=== PATIENT | female | born 1960 | race Caucasian/White ===

== ENCOUNTER 2020-09-10 09:38 | Outpatient (REF) | payer OTHER, SELFPAY ==
[2020-09-10 10:48] LABS: Anion Gap 12 (12-20); Blood Urea Nitrogen 16 mg/dL (9-16); Calcium 9.9 mg/dL (8.4-10.2); Carbon Dioxide 25 mmol/L (22-29); Chloride 111 mmol/L (96-108); Estimated Glomerular Filt Rate 45; Potassium 3.5 mmol/L (3.3-5.1); Sodium 144 mmol/L (135-145)
[2020-09-10 12:10] LABS: Creatinine Urine 296.69 mg/dL; Total Protein Urine Random 59 mg/dL (<12)
== END 2020-09-10 09:39 | disposition home or self-care (01) ==
LOC: HO.LAB 09:38
PROVIDERS: Visit Provider Internal Medicine Hypertension Specialist
DX: I10 Essential (primary) hypertension (principal)
CPT/HCPCS: 36415; 80051; 82310; 82565; 84156; 84520

== ENCOUNTER 2021-08-21 13:45 | Outpatient (REF) | payer OTHER, SELFPAY ==
[2021-08-21 15:15] LABS: Anion Gap 11 (12-20); Blood Urea Nitrogen 28 mg/dL (9-16); Calcium 9.6 mg/dL (8.4-10.2); Carbon Dioxide 18 mmol/L (22-29); Chloride 117 mmol/L (96-108); Estimated Glomerular Filt Rate 27; Glucose Random 79 mg/dL (60-115); Potassium 5.5 mmol/L (3.3-5.1); Sodium 140 mmol/L (135-145)
== END 2021-08-21 13:46 | disposition home or self-care (01) ==
LOC: HO.LAB 13:45
PROVIDERS: Visit Provider Internal Medicine Hypertension Specialist
DX: I10 Essential (primary) hypertension (principal)
CPT/HCPCS: 36415; 80048

== ENCOUNTER 2022-09-28 14:02 | Outpatient (REF) | payer OTHER, SELFPAY ==
[2022-09-28 14:53] LABS: Anion Gap 10 (12-20); Blood Urea Nitrogen 19 mg/dL (9-16); Calcium 10.2 mg/dL (8.4-10.2); Carbon Dioxide 30 mmol/L (22-29); Chloride 108 mmol/L (96-108); Estimated Glomerular Filt Rate 45; Glucose Random 92 mg/dL (60-115); Potassium 3.8 mmol/L (3.3-5.1); Sodium 144 mmol/L (135-145)
== END 2022-09-28 14:03 | disposition home or self-care (01) ==
LOC: HO.LAB 14:02
PROVIDERS: Visit Provider Internal Medicine Hypertension Specialist
DX: N18.31 Chronic kidney disease, stage 3a (principal)
CPT/HCPCS: 36415; 80048

== ENCOUNTER 2023-03-05 11:15 | Emergency (ER) | payer OTHER, SELFPAY ==
[2023-03-05 11:21] VITALS: BP 183/99; PULSE 66; RESP 14; TEMP 37.2; O2SAT 97
--- NOTE | 2023-03-05 11:23 | ED_ITS ---
HPI - Headache General Chief Complaint: General Medical Stated Complaint: MIGRAINE Time Seen by Provider: 03/05/23 11:22 Source: patient Mode of arrival: EMS Limitations: no limitations History of Present Illness HPI Narrative: 62 yo female with PMH of HTN, CKD, CVA with R sided weakness, tingling here with c/o typical migraine on R side starting at 9pm yesterdray with photophobia associated n/v that has worsened through the night she threw up her BP medications this AM. Went to PCP who noted BP tried to give IM toradol with little relief but was worried about BP. She denies fevers or new neurologic issues. MD elicited complaint: migraine Pertinent past history: migraines and hypertension Onset (ago): day(s) (last night 9pm) Onset description: gradually Location: right and temporal Severity: similar to previous episodes Quality & Timing: throbbing and progressively worsening Exacerbating factors: light and noise Relieving factors: nothing Context: other (hx of migraines feels similar, threw up her BP meds this AM) Associated symptoms: nausea, vomiting and photophobia Treatments prior to arrival: other (IM toradol at PCP) Related Data Allergies Allergy/AdvReac Type Severity Reaction Status Date / Time oxycodone [From PERCOCET] Allergy Intermediate RASH Unverified 11/23/19 17:01 codeine [Codeine] Allergy Unknown SHORTNESS Unverified 11/23/19 17:01 OF BREATH morphine [Morphine] AdvReac Unknown CHEST PAIN Unverified 11/23/19 17:01 Percocet Allergy Unknown anxiety Uncoded 12/30/10 00:00 Vicodin Allergy Unknown rash Uncoded 12/30/10 00:00 Review of Systems 2 Review of Systems: Constitutional : No Fever, No Chills, No Fatigue ENT/Mouth : No sore throat, No Rhinorrhea Eyes: No Eye Pain, No Swelling, No Redness Cardiovascular : No Chest Pain, No SOB, No Dyspnea on Exertion Respiratory : No Cough, No Sputum Gastrointestinal : pos Nausea, pos Vomiting, No Diarrhea, No abdominal Pain Genitourinary : No Dysuria, No Urinary Frequency, No Hematuria, Musculoskeletal : No joint pain, No Myalgias, No Joint Swelling Skin : No Skin Lesions, No rash Neuro : No Weakness, No Numbness, No Dizziness, positive Headache Psych : No Anxiety/Panic, No Depression Heme/Lymph: No Bruising, No Bleeding,No Lymphadenopathy Endocrine : No Polyuria, No Polydipsia All other systems reviewed and are negative COUNTS INCLUDE 234 BEDS AT THE [facility] Past Medical History Attestation statement: The following information was validated with the patient. Source: old records reviewed Medical History Acute CVA (cerebrovascular accident) Migraines HTN (hypertension) Social History Social History (Updated 03/05/23 @ 12:19 by Sonia Tesfaye DO) Patient Tobacco Use Status: Never used Tobacco Advance Directives: No Advance Directives Information Provided: No Physical Exam 2 Vital Signs: Vital Signs: Last Vital Signs Temp 98.9 F 03/05/23 11:21 Pulse 66 03/05/23 11:21 Resp 14 03/05/23 11:21 BP 183/99 H 03/05/23 11:21 Pulse Ox 97 03/05/23 11:21 O2 Del Method Room Air 03/05/23 11:21 BMI result Body Mass Index 26.7 Appearance: Alert. Oriented X3. No acute distress. Eyes: Pupils equal, round and reactive to light. ENT: Pharynx normal. Neck: Normal inspection. Neck supple. no meningeal signs CVS: Normal heart rate and rhythm. Pulses normal. Respiratory: No respiratory distress. Breath sounds normal. Abdomen: Soft and nontender. Skin: Skin warm and dry. Normal skin color. Normal skin turgor. Extremities: No lower extremity edema. No calf ttp Neuro: Oriented X 3. No motor deficit. No sensory deficit. I do not appreciate deficits Medications Administered Discontinued Medications Generic Name Dose Route Start Last Admin Trade Name Shandra PRN Reason Stop Dose Admin Amlodipine Besylate 10 mg 03/05/23 11:58 03/05/23 12:42 Amlodipine Besylate 10 Mg Tablet PO 03/05/23 11:59 10 mg ONCE ONE Administration Protocol Diphenhydramine HCl 25 mg 03/05/23 11:58 03/05/23 13:16 Diphenhydramine Hcl 50 Mg/Ml Vial IVPUSH 03/05/23 11:59 25 mg ONCE ONE Administration Hydralazine HCl 100 mg 03/05/23 11:58 03/05/23 12:43 Hydralazine Hcl 50 Mg Tablet PO 03/05/23 11:59 100 mg ONCE ONE Administration Protocol Metoclopramide HCl 10 mg 03/05/23 11:59 03/05/23 13:16 Metoclopramide Hcl 10 Mg/2 Ml Vial IVPUSH 03/05/23 12:00 10 mg ONCE ONE Administration Medical Decision Making Medical Decision Making [facility] Narrative: 62 yo female with PMH of HTN, CKD, CVA with R sided weakness, tingling here with typical migraine not on thinners no neurologic deficits BP is high due to her vomiting up her medications. At this time will provide IV medications, repeat BP, IV medications for headache, if no improvement may image, no fevers or neck pain to suggest ICH Differential Diagnosis Differential Diagnoses: The differential diagnosis associated with the presentation includes HTN, migraine Admission/Observation Consideration of admission/observation: Escalation of care including admission/observation considered Bp down feels much better wants to go home and sleep Lab Data [facility] Lab Attestation statement: I reviewed the patient's lab results. 03/05/23 12:29 03/05/23 12:29 Labs: Lab Results 03/05/23 Range/Units 12:29 WBC 5.8 (4.8-10.8) X10*3/uL RBC 4.14 L (4.20-5.50) X10*6/uL Hgb 12.3 (12.0-16.0) g/dl Hct 37.6 (37.0-47.0) % MCV 90.8 (80.0-98.0) fL MCH 29.7 (27.0-33.0) pg MCHC 32.7 (31.0-35.0) g/dl RDW 12.7 (11.0-16.0) % Plt Count 289 (160-400) X10*3/uL MPV 11.5 (9.4-12.3) fL Immature Gran % (Auto) 0.7 H (0.0-0.4) % Neut % (Auto) 67.3 (45-73) % Lymph % (Auto) 20.6 (20-40) % [place] % (Auto) 8.7 (2-11) % Eos % (Auto) 2.2 (0-4) % Baso % (Auto) 0.5 (0-2) % Lymph # (Auto) 1.2 (1.2-4.9) X10*3/uL [place] # (Auto) 0.5 (0.1-1.2) X10*3/uL Eos # (Auto) 0.1 (0.0-0.4) X10*3/uL Baso # (Auto) 0.0 (0.0-0.2) X10*3/uL Abs Immat Gran (auto) 0.04 H (0.00-0.03) X10*3/uL Absolute Neuts (auto) 3.9 (2.0-8.3) x10*3/uL Absolute Nucleated RBC 0.000 (0.0-0.012) X10*3/uL Nucleated RBC % (auto) 0.0 (0.0-0.2) /100WBC Sodium 139 (135-145) mmol/L Potassium 3.6 (3.3-5.1) mmol/L Chloride 104 (96-108) mmol/L Carbon Dioxide 23 (22-29) mmol/L Anion Gap 16 (12-20) BUN 16 (9-16) mg/dL Creatinine 1.23 (0.5-1.4) mg/dL Estim Creat Clear Calc 43.4 Estimated GFR 45 Random Glucose 106 (60-115) mg/dL Calcium 9.8 (8.4-10.2) mg/dL External Record Review External record reviewed: Office record Chronic Conditions Patient?s care impacted by: Hypertension Discharge Plan Discharge Clinical Impression: Migraine Qualifiers: Migraine type: unspecified Status migrainosus presence: without status migrainosus Intractability: not intractable Qualified Code(s): G43.909 - Migraine, unspecified, not intractable, without status migrainosus Patient Disposition: Home, Self-Care Instructions: Migraine Headache (ED) Additional Instructions: labs normal. BP improved - we gave you hydralazine and amlodipine in the ER today. return for fevers, vomiting, confusion, worsening pain or any other concerns. follow up with your doctor as needed.
[2023-03-05 11:26] VITALS: BP 160/100; PULSE 72; O2SAT 98; BMI 26.7
[2023-03-05 12:33] LABS: MANUAL DIFF FLAG NO
[2023-03-05 12:34] LABS: Basophils Percent Auto 0.5 % (0-2); Eosinophils Absolute Auto 0.1 X10*3/uL (0.0-0.4); Eosinophils Percent Auto 2.2 % (0-4); Hematocrit 37.6 % (37.0-47.0); Hemoglobin 12.3 g/dl (12.0-16.0); Imm Gran Abs Auto 0.04 X10*3/uL (0.00-0.03); Imm Gran Pct Auto 0.7 % (0.0-0.4); Lymphocytes Absolute Auto 1.2 X10*3/uL (1.2-4.9); Lymphocytes Percent Auto 20.6 % (20-40); Mean Corpuscular HGB Conc 32.7 g/dl (31.0-35.0); Mean Corpuscular Hemoglobin 29.7 pg (27.0-33.0); Mean Corpuscular Volume 90.8 fL (80.0-98.0); Mean Platelet Volume 11.5 fL (9.4-12.3); Monocytes Absolute Auto 0.5 X10*3/uL (0.1-1.2); Monocytes Percent Auto 8.7 % (2-11); Neutrophils Absolute Auto 3.9 x10*3/uL (2.0-8.3); Neutrophils Percent Auto 67.3 % (45-73); Platelet Count 289 X10*3/uL (160-400); Red Blood Count 4.14 X10*6/uL (4.20-5.50); Red Cell Distribution Width 12.7 % (11.0-16.0); White Blood Count 5.8 X10*3/uL (4.8-10.8)
[2023-03-05] MEDS: amLODIPine Besylate 10 MG TABLET PO (12:42)
[2023-03-05] MEDS: hydrALAZINE HCl 50 MG TABLET 100 MG PO (12:43)
[2023-03-05 12:48] LABS: Anion Gap 16 (12-20); Blood Urea Nitrogen 16 mg/dL (9-16); Calcium 9.8 mg/dL (8.4-10.2); Carbon Dioxide 23 mmol/L (22-29); Chloride 104 mmol/L (96-108); Creatinine Clr Calc Pharmacy 43.4; Estimated Glomerular Filt Rate 45; Glucose Random 106 mg/dL (60-115); Potassium 3.6 mmol/L (3.3-5.1); Sodium 139 mmol/L (135-145)
[2023-03-05] MEDS: diphenhydrAMINE HCL 50 MG/ML VIAL 25 MG IVPUSH (13:16)
[2023-03-05] MEDS: Metoclopramide HCl 10 MG/2 ML VIAL IVPUSH (13:16)
[2023-03-05 13:51] VITALS: BP 196/97; PULSE 67; RESP 14; O2SAT 96
--- NOTE | 2023-03-05 13:56 | PC.NURSE ---
BP remains high 196/97 with a HR of 67 Dr Tesfaye is aware and is adding another medication, will re check BP 1/2 hour after BP is given
[2023-03-05] MEDS: atenoloL 25 MG TABLET PO (14:01)
[2023-03-05 14:32] VITALS: BP 174/84; PULSE 65; RESP 18; TEMP 37.1; O2SAT 95
== END 2023-03-05 15:40 | disposition home or self-care (01) ==
PROVIDERS: Emergency Provider Emergency Medicine
DX: G43.909 Migraine, unspecified, not intractable, without status migrainosus (principal); H53.149 Visual discomfort, unspecified; I12.9 Hypertensive chronic kidney disease with stage 1 through stage 4 chronic kidney disease, or unspecified chronic kidney disease; N18.9 Chronic kidney disease, unspecified
CPT/HCPCS: 36415; 80048; 85025; 96374; 96375; 99284; J1200; J2765

== ENCOUNTER 2023-04-12 14:32 | Outpatient (AMB) | payer OTHER, SELFPAY ==
--- NOTE | 2023-04-12 14:35 | HO.NEPHOV_ITS ---
HPI HPI Comments History of Present Illness Details 62-year-old woman with resistant hyperte nsion. She has significant vascular disease in the form of splenic artery aneurysm, thoracic artery aneurysm and history of hemorrhagic stroke in the past. She has had difficult to control blood pressure and she has been on several medications. She had a CT angiogram of renal arteries which did not reveal any renal artery stenosis in 2019. Plasma catecholamines were normal. Serum aldosterone was 18 with a plasma renin activity of 0.18. CT of the adrenals did not reveal any significant pathology. Again 6 background she has significant migraine and she is had a recent visit to the emergency room. 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 [facility] Medical History (Updated 04/12/23 @ 14:59 by Tyrone Edmonds MD) Acute CVA (cerebrovascular accident) Migraines HTN (hypertension) Surgical History (Updated 04/12/23 @ 14:41 by Nicky Rao MA) H/O section Family History Father Hypertension Diabetes Mother Heart murmur Social History (Updated 04/12/23 @ 14:42 by Nicky Rao MA) Alcohol intake: never Patient Tobacco Use Status: Never used Tobacco Vital Signs 04/12/23 14:36 Height 5 ft 2 in Weight 148 lb 8 oz BMI 27.2 BP 192/130 H Blood Pressure Location Lt brachial Position Sitting Pulse 74 Pulse Source Pulse Oximeter Pulse Oximetry (%) 98 Oxygen Delivery Method Room Air Physical Exam Vital Signs: Last Vital Signs Pulse 74 04/12/23 14:36 BP 192/130 H 04/12/23 14:36 Pulse Ox 98 04/12/23 14:36 Oxygen Delivery Method Room Air 04/12/23 14:36 BMI result Body Mass Index 27.2 Const General: comfortable Nutritional Appearance: well nourished Orientation/consciousness: patient oriented x3 HEENT Head: No normal to inspection Mouth: moist mucous membranes Neck Neck: Yes supple and Yes no JVD Resp Auscultation: clear to auscultation bilaterally, no rales and rub present Cardio Jugular venous distension: no JVD Palpation: no palpable S3 and no palpable S4 Heart sounds: no rubs GI Palpation (GI): Soft to palpation and nontender Percussion: No Fluid wave present General: Yes no CVA tenderness Back/Spine/Pelvis Back: no CVA tenderness Skin General skin exam: no rashes or lesions noted Neuro General: patient oriented x3 Extrem General: Yes no pedal edema and No clubbing Assessment & Plan Assessment & Plan (1) HTN (hypertension): Code(s): I10 - Essential (primary) hypertension Qualifiers: Hypertension type: resistant hypertension Qualified Code(s): I1A.0 - Resistant hypertension (2) CKD (chronic kidney disease) stage 3, GFR 30-59 ml/min: Code(s): N18.30 - Chronic kidney disease, stage 3 unspecified Qualifiers: Chronic kidney disease stage 3 subtype: stage 3a (GFR 45-59) Qualified Code(s): N18.31 - Chronic kidney disease, stage 3a (3) Migraines: Code(s): G43.909 - Migraine, unspecified, not intractable, without status migrainosus Plan . Middle-aged woman with resistant hypertension setting of vascular disease. 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 Renal function stable at baseline. Blood pressure is suboptimal. I have reviewed all her medications. I will resume Aldactazide 25/251 a day. Check renal panel including serum potassium in the next 2-3 weeks. Encouraged her to stay on a low-sodium diet. As for the migraine I will refer her to the headache Clinic for further evaluation. Migraine could be a precipitating factor for the resistant hypertension and on the other hand resistant hypertension could be contributing to her migraine as well. Orders: Orders Basic Metabolic Panel 3 Weeks I10 - Essential (primary) hypertension, N18.30 - Chronic kidney disease, stage 3 unspecified Referrals Neurology Referral G43.909 - Migraine, unspecified, not intractable, without status migrainosus Medications: New spironolacton-hydrochlorothiaz 25-25 mg 1 tab PO DAILY 30 tabs 2RF spironolacton-hydrochlorothiaz 25-25 mg 1 tab PO DAILY 30 tabs 2RF Coding Level of Care Code Est Pt Level 4 (76078) Diagnoses Resistant hypertension I1A.0 Hypertension type: resistant hypertension Stage 3a chronic kidney disease N18.31 Chronic kidney disease stage 3 subtype: stage 3a (GFR 45-59) Migraines G43.909 Results Reviewed Nephrology Results: Hgb 12.3 g/dl (12.0-16.0) 03/05/23 WBC 5.8 X10*3/uL (4.8-10.8) 03/05/23 Plt Count 289 X10*3/uL (160-400) 03/05/23 Sodium 139 mmol/L (135-145) 03/05/23 Potassium 3.6 mmol/L (3.3-5.1) 03/05/23 Chloride 104 mmol/L (96-108) 03/05/23 Carbon Dioxide 23 mmol/L (22-29) 03/05/23 BUN 16 mg/dL (9-16) 03/05/23 Creatinine 1.23 mg/dL (0.5-1.4) 03/05/23 Calcium 9.8 mg/dL (8.4-10.2) 03/05/23 Urine Protein NEG (NEG - TRACE) 05/08/19 Urine Creatinine 296.69 mg/dL 09/10/20 Protein/Creatinin Ratio 0.20 (<0.2) 09/10/20
[2023-04-12 14:36] VITALS: BP 192/130; PULSE 74; O2SAT 98; BMI 27.2
== END 2023-04-12 15:00 | disposition home or self-care (01) ==
PROVIDERS: Visit Provider Internal Medicine Hypertension Specialist
DX: I1A.0 Resistant hypertension (principal); N18.31 Chronic kidney disease, stage 3a; G43.909 Migraine, unspecified, not intractable, without status migrainosus
CPT/HCPCS: 99214

== ENCOUNTER → 2023-04-12 14:32 | Outpatient (BNVA) | payer OTHER, SELFPAY | PROVIDERS: Visit Provider Internal Medicine Hypertension Specialist | DX: I12.9 Hypertensive chronic kidney disease with stage 1 through stage 4 chronic kidney disease, or unspecified chronic kidney disease (principal); N18.31 Chronic kidney disease, stage 3a; I1A.0 Resistant hypertension; G43.909 Migraine, unspecified, not intractable, without status migrainosus | CPT/HCPCS: 99212 ==

== ENCOUNTER 2023-05-04 14:43 | Outpatient (REF) | payer OTHER, SELFPAY ==
[2023-05-04 15:48] LABS: Anion Gap 10 (12-20); Blood Urea Nitrogen 20 mg/dL (9-16); Calcium 9.8 mg/dL (8.4-10.2); Carbon Dioxide 27 mmol/L (22-29); Chloride 110 mmol/L (96-108); Estimated Glomerular Filt Rate 45; Glucose Random 67 mg/dL (60-115); Potassium 3.3 mmol/L (3.3-5.1); Sodium 144 mmol/L (135-145)
== END 2023-05-04 14:44 | disposition home or self-care (01) ==
LOC: HO.LAB 14:43
PROVIDERS: Visit Provider Internal Medicine Hypertension Specialist
DX: I12.9 Hypertensive chronic kidney disease with stage 1 through stage 4 chronic kidney disease, or unspecified chronic kidney disease (principal); N18.30 Chronic kidney disease, stage 3 unspecified
CPT/HCPCS: 36415; 80048

== ENCOUNTER 2023-05-10 15:44 | Outpatient (AMB) | payer OTHER, SELFPAY ==
[2023-05-10 15:46] VITALS: BP 176/106; PULSE 67; O2SAT 98; BMI 27.2
--- NOTE | 2023-05-10 15:46 | HO.NEPHOV_ITS ---
HPI HPI Comments History of Present Illness Details 62-year-old woman with resistant hyperte nsion. She has significant vascular disease in the form of splenic artery aneurysm, thoracic artery aneurysm and history of hemorrhagic stroke in the past. She has had difficult to control blood pressure and she has been on several medications. She had a CT angiogram of renal arteries which did not reveal any renal artery stenosis in 2019. Plasma catecholamines were normal. Serum aldosterone was 18 with a plasma renin activity of 0.18. CT of the adrenals did not reveal any significant pathology. Again 6 background she has significant migraine and she is had a recent visit to the emergency room. 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 05/10/23 Did not start aldactazide yet c/o 2 episodes of vertigo [facility] Medical History (Updated 04/12/23 @ 14:59 by Tyrnoe Edmonds MD) Acute CVA (cerebrovascular accident) Migraines HTN (hypertension) Surgical History H/O section Family History Father Hypertension Diabetes Mother Heart murmur Social History Alcohol intake: never Patient Tobacco Use Status: Never used Tobacco Vital Signs 05/10/23 15:46 Height 5 ft 2 in Weight 149 lb BMI 27.2 BP 176/106 H Blood Pressure Location Lt brachial Position Sitting Pulse 67 Pulse Source Pulse Oximeter Pulse Oximetry (%) 98 Oxygen Delivery Method Room Air Physical Exam Vital Signs: Last Vital Signs Pulse 67 05/10/23 15:46 BP 176/106 H 05/10/23 15:46 Pulse Ox 98 05/10/23 15:46 Oxygen Delivery Method Room Air 05/10/23 15:46 BMI result Body Mass Index 27.2 Const General: comfortable Nutritional Appearance: well nourished Orientation/consciousness: patient oriented x3 HEENT Head: No normal to inspection Mouth: moist mucous membranes Neck Neck: Yes supple and Yes no JVD Resp Auscultation: clear to auscultation bilaterally, no rales and rub present Cardio Jugular venous distension: no JVD Palpation: no palpable S3 and no palpable S4 Heart sounds: no rubs GI Palpation (GI): Soft to palpation and nontender Percussion: No Fluid wave present General: Yes no CVA tenderness Back/Spine/Pelvis Back: no CVA tenderness Skin General skin exam: no rashes or lesions noted Neuro General: patient oriented x3 Extrem General: Yes no pedal edema and No clubbing Assessment & Plan Assessment & Plan (1) HTN (hypertension): Code(s): I10 - Essential (primary) hypertension Qualifiers: Hypertension type: resistant hypertension Qualified Code(s): I1A.0 - Resistant hypertension (2) CKD (chronic kidney disease) stage 3, GFR 30-59 ml/min: Code(s): N18.30 - Chronic kidney disease, stage 3 unspecified Qualifiers: Chronic kidney disease stage 3 subtype: stage 3a (GFR 45-59) Qualified Code(s): N18.31 - Chronic kidney disease, stage 3a (3) Migraines: Code(s): G43.909 - Migraine, unspecified, not intractable, without status migrainosus Plan . Middle-aged woman with resistant hypertension setting of vascular disease. 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 Renal function stable at baseline. Blood pressure is suboptimal. I have reviewed all her medications. I will resume Aldactazide 25/25 - 1 a day. Encouraged her to stay on a low-sodium diet. As for the migraine I referred her to the headache Clinic for further evaluation. Appt in July Needs work up for vertigo as well by neurology Migraine could be a precipitating factor for the resistant hypertension and on the other hand resistant hypertension could be contributing to her migraine as well. Medications: New spironolacton-hydrochlorothiaz 25-25 mg 1 tab PO DAILY 30 tabs 1RF Coding Level of Care Code Est Pt Level 4 (72170) Diagnoses Resistant hypertension I1A.0 Hypertension type: resistant hypertension Stage 3a chronic kidney disease N18.31 Chronic kidney disease stage 3 subtype: stage 3a (GFR 45-59) Migraines G43.909 Results Reviewed Nephrology Results: Hgb 12.3 g/dl (12.0-16.0) 03/05/23 WBC 5.8 X10*3/uL (4.8-10.8) 03/05/23 Plt Count 289 X10*3/uL (160-400) 03/05/23 Sodium 144 mmol/L (135-145) 05/04/23 Potassium 3.3 mmol/L (3.3-5.1) 05/04/23 Chloride 110 mmol/L (96-108) H 05/04/23 Carbon Dioxide 27 mmol/L (22-29) 05/04/23 BUN 20 mg/dL (9-16) H 05/04/23 Creatinine 1.23 mg/dL (0.5-1.4) 05/04/23 Calcium 9.8 mg/dL (8.4-10.2) 05/04/23 Urine Protein NEG (NEG - TRACE) 05/08/19 Urine Creatinine 296.69 mg/dL 09/10/20 Protein/Creatinin Ratio 0.20 (<0.2) 09/10/20
== END 2023-05-10 16:05 | disposition home or self-care (01) ==
PROVIDERS: Visit Provider Internal Medicine Hypertension Specialist
DX: I1A.0 Resistant hypertension (principal); N18.31 Chronic kidney disease, stage 3a; G43.909 Migraine, unspecified, not intractable, without status migrainosus
CPT/HCPCS: 99214

== ENCOUNTER → 2023-05-10 15:44 | Outpatient (BNVA) | payer OTHER, SELFPAY | PROVIDERS: Visit Provider Internal Medicine Hypertension Specialist | DX: I1A.0 Resistant hypertension (principal); N18.31 Chronic kidney disease, stage 3a; G43.909 Migraine, unspecified, not intractable, without status migrainosus | CPT/HCPCS: 99212 ==

== ENCOUNTER 2024-07-13 16:03 | Outpatient (AMB) | payer OTHER, SELFPAY ==
[2024-07-13 16:01] VITALS: BP 120/82; PULSE 106; O2SAT 96; BMI 25.2
--- NOTE | 2024-07-13 16:01 | HO.NEPHOV_ITS ---
Vital Signs 07/13/24 16:01 Height 5 ft 2 in Weight 138 lb BMI 25.2 BP 120/82 Blood Pressure Location Lt brachial Position Sitting Pulse 106 H Pulse Source Pulse Oximeter Pulse Oximetry (%) 96 Oxygen Delivery Method Room Air Intake Visit Reasons: NO SHOW 06/14/23-LVM Central Service Technician Required: No Accompanied by: Daughter Allergies oxycodone [From PERCOCET] Allergy (Intermediate, Verified 07/13/24 16:06) RASH codeine [Codeine] Allergy (Unknown, Verified 07/13/24 16:06) SHORTNESS OF BREATH morphine [Morphine] Adverse Reaction (Unknown, Verified 07/13/24 16:06) CHEST PAIN Percocet Allergy (Unknown, Uncoded 12/30/10 00:00) anxiety Vicodin Allergy (Unknown, Uncoded 12/30/10 00:00) rash Medication List - Last Reconciled 07/13/24 by Tyrone Edmonds MD acetaminophen mg PO PRN aspirin 81 mg PO DAILY atenolol 25 mg PO DAILY atorvastatin 80 mg PO DAILY hydralazine 100 mg PO TID metoprolol succinate ER 25 mg PO DAILY mirtazapine 7.5 mg PO BEDTIME spironolacton-hydrochlorothiaz 25-25 mg 2 tabs PO DAILY HPI Comments Details: 63-year-old woman with resistant hypertension. She has significant vascular disease in the form of splenic artery aneurysm, thoracic artery aneurysm and history of hemorrhagic stroke in the past. She has had difficult to control blood pressure and she has been on several medications. She had a CT angiogram of renal arteries which did not reveal any renal artery stenosis in 2019. Plasma catecholamines were normal. Serum aldosterone was 18 with a plasma renin activity of 0.18. CT of the adrenals did not reveal any significant pathology. Again 6 background she has significant migraine and she is had a recent visit to the emergency room. 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 05/10/23;Did not start aldactazide yet; c/o 2 episodes of vertigo 07/13/24 Here for follow up after almost a year Accompanied by family Meds reviewed NOt on Amlodipine anymore On Aldactazide 50/50 daily ( was on 25/25 daily) Recently had a fall. No lightheadedness. Says she tripped over pavement [facility] Medical History (Updated 04/12/23 @ 14:59 by Tyrone Edmonds MD) Acute CVA (cerebrovascular accident) Migraines HTN (hypertension) Surgical History H/O section Family History Father Hypertension Diabetes Mother Heart murmur Social History Alcohol intake: never Patient Tobacco Use Status: Never used Tobacco Physical Exam Vital Signs: Last Vital Signs Pulse 106 H 07/13/24 16:01 BP 120/82 07/13/24 16:01 Pulse Ox 96 07/13/24 16:01 Oxygen Delivery Method Room Air 07/13/24 16:01 BMI result Body Mass Index 25.2 Comfortable Neck supple no JVD. Lungs entry equal no rales. Heart S1-S2 heard no gallop or rub. Abdomen soft nontender. Neuro alert awake oriented. No asterixis. Extremities no edema. Const General: comfortable Nutritional Appearance: well nourished Orientation/consciousness: patient oriented x3 HEENT Head: No normal to inspection Mouth: moist mucous membranes Neck Neck: Yes supple and Yes no JVD Resp Auscultation: clear to auscultation bilaterally and no rales Cardio Jugular venous distension: no JVD Palpation: no palpable S3 and no palpable S4 Heart sounds: no rubs GI Palpation (GI): Soft to palpation and nontender Percussion: No Fluid wave present General: Yes no CVA tenderness Back/Spine/Pelvis Back: no CVA tenderness Skin General skin exam: no rashes or lesions noted Neuro General: patient oriented x3 Extrem General: Yes no pedal edema and No clubbing Results Reviewed Nephrology Results: 2 Hgb 12.3 g/dl (12.0-16.0) 03/05/23 WBC 5.8 X10*3/uL (4.8-10.8) 03/05/23 Plt Count 289 X10*3/uL (160-400) 03/05/23 Sodium 144 mmol/L (135-145) 05/04/23 Potassium 3.3 mmol/L (3.3-5.1) 05/04/23 Chloride 110 mmol/L (96-108) H 05/04/23 Carbon Dioxide 27 mmol/L (22-29) 05/04/23 BUN 20 mg/dL (9-16) H 05/04/23 Creatinine 1.23 mg/dL (0.5-1.4) 05/04/23 Calcium 9.8 mg/dL (8.4-10.2) 05/04/23 Urine Protein NEG (NEG - TRACE) 05/08/19 Urine Creatinine 296.69 mg/dL 09/10/20 Protein/Creatinin Ratio 0.20 (<0.2) 09/10/20 Assessment & Plan Assessment & Plan (1) HTN (hypertension): Code(s): I10 - Essential (primary) hypertension Category: Medical Qualifiers: Hypertension type: resistant hypertension Qualified Code(s): I1A.0 - Resistant hypertension (2) CKD (chronic kidney disease) stage 3, GFR 30-59 ml/min: Code(s): N18.30 - Chronic kidney disease, stage 3 unspecified Category: Medical Qualifiers: Chronic kidney disease stage 3 subtype: stage 3a (GFR 45-59) Qualified Code(s): N18.31 - Chronic kidney disease, stage 3a (3) Migraines: Code(s): G43.909 - Migraine, unspecified, not intractable, without status migrainosus Category: Medical Plan . Middle-aged woman with resistant hypertension setting of vascular disease. 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 Renal function stable at baseline. Blood pressure is well controlled. I have reviewed all her medications. Keep current meds Encouraged her to stay on a low-sodium diet. Check renal panel along with potassium further work up and recommendations based on lab work Await neurology follow up Orders: Orders Complete Blood Count no Diff 1 Day I1A.0 - Resistant hypertension, N18.31 - Chronic kidney disease, stage 3a Comprehensive Met. Panel 1 Day I1A.0 - Resistant hypertension, N18.31 - Chronic kidney disease, stage 3a Medications: Changed From spironolacton-hydrochlorothiaz 25-25 mg 1 tab PO DAILY 90 tabs 1RF To spironolacton-hydrochlorothiaz 25-25 mg 2 tabs PO DAILY Coding Level of Care Code Est Pt Level 4 (23686) Diagnoses Resistant hypertension I1A.0 Hypertension type: resistant hypertension Stage 3a chronic kidney disease N18.31 Chronic kidney disease stage 3 subtype: stage 3a (GFR 45-59) Migraines G43.909
--- OUTSIDE RECORDS SUMMARY | 2024-07-13 16:15 | XMS_ITS | Clinical Summary ---
Author Organization [address] Address [address] [place] [phone] Phone Care Team Providers Care Tool Room Machinist Name Role Phone Jo Ann Gagnon MD Primary Care Prov ider Allergies Active Allergy Reactions Criticality Noted Date Comments Codeine Itching,Other,Unknown Medium 12/31/2015 Morphine Other,Unknown 07/30/2015 Oxycodone-Acetaminoph en Other 07/30/2015 Other Reaction(s): hives and anxiety Medications omeprazole (PriLOSEC) [address] capsule Take 1 capsule (20 mg total) by mouth 1 (one) time each day. 4 Active aspirin 81 mg EC tablet Take 1 tablet (81 mg total) by mouth 1 (one) time each day. 4 Active acetaminophen (TYLENOL) 500 mg tablet Take 1 tablet (500 mg total) by mouth. 4 Active atenoloL (TENORMIN) 25 mg tablet TAKE 1 TABLET BY MOUTH EVERY DAY 90 tablet 1 5 Active atorvastatin (LIPITOR) 80 mg tablet TAKE 1 TABLET BY MOUTH EVERY DAY 90 tablet 1 5 Active mirtazapine (REMERON) 7.5 mg tablet Take 1 tablet (7.5 mg total) by mouth at bedtime. 90 tablet 1 5 Active hydrALAZINE (APRESOLINE) 100 mg tablet Take 1 tablet (100 mg total) by mouth 3 (three) times a day. 270 tablet 1 5 Active spironolactone -hydroCHLOROth iazide (Aldactazide) 50-50 mg per tablet Take 1 tablet (50 mg total) by mouth 1 (one) time each day. 90 tablet 5 Active spironolactone -hydroCHLOROth iazide (ALDACTAZIDE) 25-25 mg per tablet Take 1 tablet (25 mg total) by mouth 1 (one) time each day. 90 tablet 1 5 06/21/19 25 Discontinued Active Problems Problem Noted Date Diagnosed Date History of CVA (cerebrovascular accident) 2024 Overweight (BMI 25.0-29.9) 06/20/2024 Hypertension 01/15/2024 GERD (gastroesophageal reflux disease) 4 Implantable loop recorder present 10/15/2022 Hyperlipidemia 04/23/2021 Illiteracy 04/23/2021 Stage 4 chronic kidney disease ([facility] V24, [facility] V28) 04/23/2021 Overview (01/15/2024): Follows with nephrology secondary to hypertensive kidney disease Vitamin D deficiency 04/23/2021 Recurrent major depressive disorder ([facility] V24 ) 01/16/2021 Obstructive sleep apnea syndrome 02/05/2020 Overview (01/15/2024): Mild s/p sleep study done at [facility] January 2020 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 Overview (01/15/2024): microhemorrhages brain on MRI; felt secondary to uncontrolled HTN Posttraumatic stress disorder 02/06/2016 Encounters Date Type Department Care Team Description 06/26/2024 Telephone Adult Medicine [address] [phone] Jo Ann Hall MD Forms/questionnaires ([facility] Physician Summary) 06/23/2024 Telephone Adult Medicine [address] [phone] Jo Ann Hall MD [facility] orders being faxed now -need DEMAR 06/20/2024 9:00 AM EDT Office Visit Adult [address] [phone] Daniela Billingsley PA Elevated blood pressure reading (Primary Dx); Primary hypertension; Pure hypercholesterolemia; History of CVA (cerebrovascular accident); Overweight (BMI 25.0-29.9) 06/12/2024 7:30 AM EDT Office Visit Adult [address] [phone] Blanca Carney PA Routine general medical examination at a health care facility (Primary Dx); Screening for HIV (human immunodeficiency virus); Screening for deficiency anemia; Primary hypertension; Hypertensive renal disease; Pure hypercholesterolemia 05/26/2024 Telephone Adult [address] [phone] Jo Ann Hall MD last physical notes faxed from Last 3 Months Immunizations Name Administration Dates Next Due Influenza Quadrivalent, 0.5m l, preservative free (Fluarix; FluLaval; Fluzone) ages 6mo and older (Afluria) 3yo and older 01/01/2022 Influenza trivalent, 0.5mL, preservative free (Fluarix; FluLaval; Fluzone) ages 6mo and older (Afluria) 3 years and older 03/30/2012 Surgical History Surgery Date Site/Laterality Comments SECTION 1994 TONSILLECTOMY 1972 OTHER SURGICAL HISTORY 10/17/2004 Dr. Rivera - recurrent esophageal achalasia status post pneumatic dilation ESOPHAGOGASTRODUODENOSCOPY 05/25/2017 Large amount of retained food, lower third of the esophagus was moderately dilated. Recommend manometry testing OTHER SURGICAL HISTORY PROCEDURE: MT XTRNL PT ACTIV ECG TRANSMIS W/R&I </30 DAYS Medical History Medical History Date Comments TIA (transient ischemic attack) Apr 2014, Mar 27 DX:TIA (transient ischemic attack) Hyperlipidemia DX:Hyperlipidemi a GERD (gastroesophageal reflu x disease) DX:GERD (gastroesophageal re flux disease) Illiteracy DX:Illiteracy Esophageal stricture 12/09/2016 DX:Esophage al stricture Microangiopathy ([facility] V24) 12/09/2016 DX :Microangiopathy ([facility]); COMMENT: microhemorrhages brain on MRI; felt secondary to uncontrolled HTN Anxiety and depression 02/08/2018 DX:Anxiet y and depression PTSD (post-traumatic stress disorder) 02/06/2016 DX:PTSD (post-traumatic stre ss disorder) Snoring 02/16/2016 DX:Snoring Hypertension DX:Hypertension; COMMENT: Admitted hypertensive crisis 11/21, 08/20, 03/20 Renal artery ultrasound 04/2018 with no stenosis Vitamin D insufficiency DX:Vitam in D insufficiency Hypertensive kidney disease 06/24/2018 DX:H ypertensive kidney disease CKD (chronic kidney disease) stage 3, GFR 30-59 ml/min (CMS/HCC V24, CMS/HCC V28) DX:CKD (chronic kidney dise ase) stage 3, GFR 30-59 ml/min ([facility]) Diverticulosis 11/11/2018 DX:Diverticulosi s Internal hemorrhoids 11/11/2018 DX:Internal hemorrhoids Implantable loop recorder present DX:Implantable loop recorder present Family History Medical History Relation Name Comments No Known Problems Brother 1 No Known Problems Brother 2 No Known Problems Brother 3 No Known Problems Brother 4 No Known Problems Brother 5 Migraines Daughter 1 No Known Problems Daughter 2 x3 Hypertension Father MD? Stroke? uns ure. in sleep Hypertension Mother Depression. fal l, had blisters Colon cancer Mother's side uncles No Known Problems Sister No Known Problems Son Breast cancer Neg Hx Colon cancer Neg Hx Ovarian cancer Neg Hx Pancreatic cancer Neg Hx Prostate cancer Neg Hx Uterine cancer Neg Hx Relation Name Status Comments Brother 1 Alive Brother 2 Alive Brother 3 Alive Brother 4 Alive Brother 5 Alive Daughter 1 Alive Daughter 2 Alive Father Maternal Grandfather Maternal Grandmother Mother Mother's side Paternal Grandfather Paternal Grandmother Sister Alive Son Alive Social History Tobacco Use Types Packs/Day Years Used Date Smoking Tobacco: Never Smokeless Tobacco: Never Tobacco Cessation:Counseling Given: Not Answered Alcohol Use Standard Drinks/Week Comments No 0 (1 standard drink = 0.6 oz pur e alcohol) Comments No Sex and Gender Information Value Date Recorded Sex Assigned at Not on file Legal Sex Female 5:07 AM EST Gender Identity Not on file Sexual Orientation Not on file Occupation Industry Job Start Date Job End Date disability Not on file Not on file Not on file Obstetrics History Last Filed Vital Signs Vital Sign Reading Time Taken Comments Blood Pressure 159/99 06/20/2024 9:22 AM EDT Pulse 88 06/20/2024 9:22 AM EDT Temperature 36.8 ??C (98.2 ??F) 06/20/2024 9:15 AM ED T Respiratory Rate 14 06/20/2024 9:15 AM EDT Oxygen Saturation 98% 06/20/2024 9:15 AM EDT Inhaled Oxygen Concentration - - Weight 62.9 kg (138 lb 9.6 oz) 06/20/2024 9:15 A M EDT Height 157.5 cm (5' 2 ) 06/20/2024 9:15 AM EDT Body Mass Index 25.35 06/20/2024 9:15 AM EDT Plan of Treatment Upcoming Encounters Date Type Department Care Team (Late st Contact Info) Description 07/18/2024 9:30 AM EDT Office Visit Adult Medicine [facility] [address] [place] [phone] Daniela Billingsley PA [address] [place] [address] Health Maintenance Due Date Last Done Comments COVID-19 Vaccine (#1) 10/08/1965 DTaP,Tdap,and Td Vaccines (1 - Tdap) 1981 Pneumococcal Vaccine: 50+ Years (1 of 1 - PCV) 2012 Zoster Vaccines (1 of 2) 2012 RSV Immunization Adult Patients (1 - Risk 60-74 years 1-dose series) 2022 Social Influencers of Health Screening 09/16/2024 09/17/2023 Cervical Cancer Screening: HPV 09/20/2024 09/21/2019 Influenza Vaccine (Season Ended) 2024 01/01/2022, 03/30/2012 Depression Screening 12/29/2024 12/30/2023 Hypertension/CHF/CAD Annual BMP Blood Test 06/12/2025 06/12/2024, 09/28/2022 Breast Cancer Screening 12/28/2025 12/29/19, 12/29/2023, 12/25/2022, Additional history exists Colorectal Cancer Screening: Colonoscopy 11/11/2028 11/11/2018 Cholesterol Screening (Lipid Panel) 06/12/2029 06/12/2024, 05/11/2022 Hepatitis C Screening Addressed 06/24/2018 Overri dden with the intention of not completing the topic HIV Screening Completed 06/12/2024 HIB Vaccines Aged Out No longer eligi ble based on patient's age to complete this topic HPV Vaccines Aged Out No longer eligi ble based on patient's age to complete this topic Hepatitis A Vaccines Aged Out No long er eligible based on patient's age to complete this topic Hepatitis B Vaccines Aged Out No long er eligible based on patient's age to complete this topic IPV Vaccines Aged Out No longer eligi ble based on patient's age to complete this topic MMR Vaccines Aged Out No longer eligi ble based on patient's age to complete this topic Meningococcal ACWY Vaccine Aged Out N o longer eligible based on patient's age to complete this topic Meningococcal B Vaccine Aged Out No l onger eligible based on patient's age to complete this topic Pneumococcal Vaccine: Pediatrics (0 to 5 Years) and At-Risk Patients (6 to 64 Years) Aged Out No longer eligible based on patient's age to complete this topic RSV Immunization Patients Under 20 months Aged Out No longer eligible based on patient's age to complete this topic Varicella Vaccines Aged Out No longer eligible based on patient's age to complete this topic Procedures Procedure Name Priority Date/Time Associated Diagnosis Comments ECG 12-LEAD TRACING ONLY Routine 06/20/2024 9:31 AM EDT Elevated blood pressure reading Primary hypertension COMPLETE BLOOD COUNT Routine 06/12/2024 9:00 AM EDT Screening for deficiency anemia COMPREHENSIVE METABOLIC PANEL Routine 06/12/2024 9:00 AM EDT Routine general medical examination at a health care facility LIPID PANEL WITH REFLEX TO DIRECT LDL Routine 06/12/2024 9:00 AM EDT Pure hypercholesterolemia HIV 1, 2 ANTIBODY, P24 ANTIGEN WITH REFLEX TO DIFFERENTIATION Routine 06/12/2024 9:00 AM EDT Screening for HIV (human immunodeficiency virus) SCREENING MAMMOGRAPHY BI 2-VIEW BREAST INC CAD Routine 12/29/2023 3:16 PM EDT Encounter for screening mammogram for malignant neoplasm of breast from Last 3 Months or Most Recently Relevant to Health Maintenance Results * ECG 12 lead Tracing Only (06/20/2024 9:31 AM EDT) 06/20/2024 9:31 AM EDT us Daniela DUNCAN ECG ORDERABLES Final Result * HIV 1,2 antibody, p24 antigen with reflex to differentiation (06/12/2024 9:00 AM EDT) HIV Combo AB/AG Negative Negative LAB CHEMISTRY METHOD 06/12/2024 3:31 PM EDT [facility] Blood Venous blood specimen / Unknown Venipuncture / Unknown 06/12/2024 9:00 AM EDT 06/12/2024 9:00 AM EDT Narrative [facility] - 06/12/2024 3:31 PM EDT This assay is a 4th generation assay allowing for earlier detection of HIV infection by detecting the presence of the HIV-1 p24 antigen as well as the traditional antibodies to HIV type 1 (including group O) and type 2. ??Use of a 4th generation assay is the current CDC recommendation for HIV screening. us Blanca DUNCAN LAB BLOOD ORDERABLES Final Resul t [facility] [address] [place] [address], [place] [phone] * (ABNORMAL) Lipid panel with reflex to direct LDL (06/12/2024 9:00 AM EDT) Pathologist [facility] Cholesterol 114 0 - 200 mg/dL LAB CHEMISTRY METHOD 06/12/2024 2:09 PM EDT [facility] Triglycerides 133 0 - 150 mg/dL LAB CHEMISTRY METHOD 06/12/2024 2:09 PM EDT [facility] HDL 39(L) >=40 mg/dL LAB CHEMISTRY METHOD 06/12/2024 2:09 PM EDT [facility] LDL Calculated 48 0 - 100 mg/dL LAB CHEMISTRY METHOD 06/12/2024 2:09 PM EDT [facility] VLDL Cholesterol Blue 26.6 mg/dL LAB CHEMISTRY METHOD 06/12/2024 2:09 PM EDT [facility] Non HDL Chol. (LDL+VLDL) 75 <145 mg/dL LAB CHEMISTRY METHOD 06/12/2024 2:09 PM EDT [facility] Chol/HDL Ratio 2.9 0.0 - 4.4 LAB CHEMISTRY METHOD 06/12/2024 2:09 PM EDT [facility] Blood Venous blood specimen / Unknown Venipuncture / Unknown 06/12/2024 9:00 AM EDT 06/12/2024 9:00 AM EDT us Blanca DUNCAN LAB BLOOD ORDERABLES Final Resul t [facility] [address] [place] [address], [place] [phone] * (ABNORMAL) Complete blood count (06/12/2024 9:00 AM EDT) Pathologist [facility] WBC 7.3 4.8 - 10.8 K/mcL LAB HEMETOLOGY METHOD 06/12/2024 11:[address] [facility] RBC 3.80 3.80 - 4.80 M/mcL LAB HEMETOLOGY METHOD 06/12/2024 11:[address] [facility] Hemoglobin 11.4(L) 11.5 - 16.0 g/dL LAB HEMETOLOGY METHOD 06/12/2024 11:[address] [facility] Hematocrit 37.1 35.0 - 47.0 % LAB HEMETOLOGY METHOD 06/12/2024 11:[address] [facility] MCV 96.9 79.0 - 98.0 FL LAB HEMETOLOGY METHOD 06/12/2024 11:[address] [facility] MCH 29.8 27.0 - 32.0 pcg LAB HEMETOLOGY METHOD 06/12/2024 11:[address] [facility] MCHC 30.7(L) 32.0 - 37.0 g/dL LAB HEMETOLOGY METHOD 06/12/2024 11:[address] [facility] RDW 14.5 11.0 - 15.0 % LAB HEMETOLOGY METHOD 06/12/2024 11:[address] [facility] Platelets 327 130 - 400 K/mcL LAB HEMETOLOGY METHOD 06/12/2024 11:[address] [facility] MPV 11.7(H) 7.0 - 11.0 FL LAB HEMETOLOGY METHOD 06/12/2024 11:[address] [facility] NRBC 0.0 <1.0 % LAB HEMETOLOGY METHOD 06/12/2024 11:[address] [facility] NRBC Absolute 0.00 <0.10 K/mcL LAB HEMETOLOGY METHOD 06/12/2024 11:[address] [facility] Blood Venous blood specimen / Unknown Venipuncture / Unknown 06/12/2024 9:00 AM EDT 06/12/2024 9:00 AM EDT us Blanca Rommel DUNCAN LAB BLOOD ORDERABLES Final Resul t [facility] [address] [place] [address], [place] [phone] * (ABNORMAL) Comprehensive metabolic panel (06/12/2024 9:00 AM EDT) Sodium 140 133 - 145 mmol/L LAB CHEMISTRY METHOD 06/12/2024 2:[address] [facility] Potassium 3.8 3.5 - 5.5 mmol/L LAB CHEMISTRY METHOD 06/12/2024 2:[address] [facility] Chloride 108 96 - 110 mmol/L LAB CHEMISTRY METHOD 06/12/2024 2:[address] [facility] CO2 22 21 - 32 mmol/L LAB CHEMISTRY METHOD 06/12/2024 2:[address] [facility] Anion Gap 10 3 - 11 LAB CHEMISTRY METHOD 06/12/2024 2:[address] [facility] Glucose 107(H) 70 - 100 mg/dL LAB CHEMISTRY METHOD 06/12/2024 2:[address] [facility] BUN 35(H) 5 - 25 mg/dL LAB CHEMISTRY METHOD 06/12/2024 2:[address] [facility] Creatinine 1.79(H) 0.50 - 1.10 mg/dL LAB CHEMISTRY METHOD 06/12/2024 2:[address] [facility] eGFR 32(L) >=60 mL/min/1. 73m2 LAB CHEMISTRY METHOD 06/12/2024 2:[address] [facility] Comment:Calculation based on the??Chronic Kidney Disease Epidemiology Collaboration (CKD-EPI) equation refit??without adjustment for race. BUN/Creatinine Ratio 19.6 LAB CHEMISTRY METHOD 06/12/2024 2:09 PM EDT [facility] Calcium 9.7 8.5 - 10.5 mg/dL LAB CHEMISTRY METHOD 06/12/2024 2:09 PM EDT [facility] AST (SGOT) 16 10 - 42 unit/L LAB CHEMISTRY METHOD 06/12/2024 2:09 PM T [facility] ALT (SGPT) 29 10 - 60 unit/L LAB CHEMISTRY METHOD 06/12/2024 2:09 PM EDT [facility] Alkaline Phosphatase 108 42 - 121 unit/L LAB CHEMISTRY METHOD 06/12/2024 2:09 PM T [facility] Total Protein 7.7 6.0 - 8.0 g/dL LAB CHEMISTRY METHOD 06/12/2024 2:[address] [facility] Albumin 3.7 3.2 - 5.0 g/dL LAB CHEMISTRY METHOD 06/12/2024 2:[address] [facility] Total Bilirubin 0.4 0.0 - 1.4 mg/dL LAB CHEMISTRY METHOD 06/12/2024 2:09 PM T [facility] Blood Venous blood specimen / Unknown Venipuncture / Unknown 06/12/2024 9:00 AM EDT 06/12/2024 9:00 AM EDT us Blanca Rommel DUNCAN LAB BLOOD ORDERABLES Final Resul t [facility] [address] [place] [address], * SCREENING MAMMOGRAPHY BI 2-VIEW BREAST INC CAD (12/29/2023 3:16 PM EDT) Anatomical Region Laterality Modality Radiographic Ryann ging 12/25/2022 3:36 PM EDT Narrative 12/30/2023 2:12 PM EDT This is a summary report. The complete report is available in the patient's medical record. If you cannot access the medical record, please contact the sending organization for a detailed fax or copy. BILATERAL 3D DIGITAL SCREENING MAMMOGRAM History: Routine screening. ??No current breast complaints. Comparison: Mammogram from 01/02/2023 Technique: Bilateral full-field digital 3D mammography was performed using standard CC and MLO projections, left breast exaggerated CC. ??Left breast loop device is present. CAD was used to evaluate this mammogram. Findings: Density: ??There are scattered areas of fibroglandular density-B RIGHT: No suspicious masses, groups of microcalcification or areas of architectural distortion identified. Stable typically benign parenchymal asymmetries LEFT: No suspicious masses, groups of microcalcifications or areas of architectural distortion identified. Stable typically benign parenchymal asymmetries. ??Artifact from a loop device medially. IMPRESSION: : 1. ??No mammographic evidence of malignancy. BI-RADS Category 2 benign findings Recommendation: Routine annual screening mammography is recommended [address] [id number] Procedure Note Hank Lundberg MD - 01/08/2024 This is a summary report. The complete report is available in thepatient's medical record. If you cannot access the medical record, pleasecontact the sending organization for a detailed fax or copy. BILATERAL 3D DIGITAL SCREENING MAMMOGRAM History: Routine screening. No current breast complaints. Comparison: Mammogram from 01/02/2023 Technique: Bilateral full-field digital 3D mammography was performed usingstandard CC and MLO projections, left breast exaggerated CC. Left breastloop device is present. CAD was used to evaluate this mammogram. Findings: Density: There are scattered areas of fibroglandular density-B RIGHT: No suspicious masses, groups of microcalcification or areas ofarchitectural distortion identified. Stable typically benign parenchymalasymmetries LEFT: No suspicious masses, groups of microcalcifications or areas ofarchitectural distortion identified. Stable typically benign parenchymalasymmetries. Artifact from a loop device medially. IMPRESSION: : 1. No mammographic evidence of malignancy. BI-RADS Category 2 benign findings Recommendation: Routine annual screening mammography is recommended [address] [id number] Daniela DUNCAN IMG XR PROCEDURES Final Result from Last 3 Months or Most Recently Relevant to Health Maintenance Insurance [employer] Advance Directives Documents on File Type Date Recorded Patient Smt Operator Expl anation Health Care Decision (hx) 01/11/2022 LAXMI KAHN DIRECTIVE Care Teams Tool Room Machinist Relationship Specialty Start Date End Date Jo Ann Gagnon MD [address] [place] [id number] PCP - General Internal Medicine 10/07/21"
--- OUTSIDE RECORDS SUMMARY | 2024-07-13 16:15 | XMS_ITS | Clinical Summary ---
Author Organization [facility] Address [address] [place] [address] Phone Care Team Providers Care Tamping Machine Operator Road Forms Name Role Phone Oralia Helton MD Primary Care Provider [phone] Allergies Active Allergy Reactions Criticality Noted Date Comments Codeine Other (see comments) 06/13/2020 Morphine Other (see comments) 06/13/2020 Oxycodone-Acetaminophen Other (see comments) Medications acetaminophen (TYLENOL) 500 MG tablet Take 2 tablets by mouth 4 (four) times a day Active aspirin (ST MARIN) 81 MG EC tablet Take 1 tablet by mouth 1 (one) time each day Active omeprazole (PriLOSEC) [address] capsule Take 20 mg by mouth 1 (one) time each day 04/04/2021 Active losartan (COZAAR) 100 MG tablet Take 1 tablet (100 mg total) by mouth 1 (one) time each day 30 tablet 5 12/29/2021 Active hydrALAZINE 25 MG tablet Take 1 tablet (25 mg total) by mouth in the morning and 1 tablet (25 mg total) at noon and 1 tablet (25 mg total) in the evening. 90 tablet 3 12/29/2021 Active amLODIPine (NORVASC) 10 MG tablet Take 0.5 tablets (5 mg total) by mouth 1 (one) time each day 07/23/2022 Active Active Problems Problem Noted Date Diagnosed Date Chronic kidney disease stage 4 04/23/2021 Overview (04/23/2021): Follows with nephrology secondary to hypertensive kidney disease Hyperlipidemia 04/23/2021 Illiteracy 04/23/2021 Vitamin D deficiency 04/23/2021 Recurrent major depressive disorder 01/16/2021 Essential hypertension 06/13/2020 Obstructive sleep apnea syndrome 02/05/2020 Overview (04/23/2021): Mild s/p sleep study done at [facility] January 2020 History of cerebrovascular accident 11/16/2019 Overview (04/23/2021): X2 in July 1 was hemorrhagic 1 was ischemic all in the setting of hypertensive emergency medication noncompliance Neurological deficit 11/16/2019 Overview (04/23/2021): Right-handed weakness Diverticular disease 11/11/2018 Internal hemorrhoids 11/11/2018 Hypertensive renal disease 06/24/2018 Disorder of capillaries 12/09/2016 Overview (04/23/2021): microhemorrhages brain on MRI; felt secondary to uncontrolled HTN Stricture of esophagus 12/09/2016 Overview (04/23/2021): S/p dilation Posttraumatic stress disorder 02/06/2016 Resolved Problems Problem Noted Date Diagnosed Date Resolved Date Elevated blood pressure read ing without diagnosis of hypertension 06/13/2020 06/13/2020 Family History Medical History Relation Comments Hypertension Child daughter Hypertension Father Stroke Father Hypertension Mother Relation Status Comments Child Father Mother Alive Social History Tobacco Use Types Packs/Day Years Used Date Smoking Tobacco: Never Smokeless Tobacco: Never Tobacco Cessation:Counseling Given: Not Answered Alcohol Use Standard Drinks/Week Comments No 0 (1 standard drink = 0.6 oz pur e alcohol) Comments Unknown Sex and Gender Information Value Date Recorded Sex Assigned at Not on file Legal Sex Female 4:59 PM EST Gender Identity Not on file Sexual Orientation Not on file Last Filed Vital Signs Vital Sign Reading Time Taken Comments Blood Pressure 137/65 09/28/2022 1:47 PM EDT Pulse 68 09/28/2022 1:47 PM EDT Temperature - - Respiratory Rate - - Oxygen Saturation 99% 09/28/2022 1:47 PM EDT Inhaled Oxygen Concentration - - Weight 66.7 kg (147 lb) 09/28/2022 1:47 PM EDT Height 157.5 cm (5' 2 ) 05/15/2019 12:00 PM EDT Body Mass Index 26.89 05/15/2019 12:00 PM EDT Plan of Treatment Health Maintenance Due Date Last Done Comments Breast Cancer Screening 1960 Pneumococcal Vaccine: 50+ Years (1 of 2 - PCV) 1981 Colorectal Cancer Screening: Annual FOBT 10/08/2011 Colorectal Cancer Screening: Colonoscopy 10/08/2011 Colorectal Cancer Screening: Sigmoidoscopy 10/08/2011 Influenza Vaccine (Season Ended) 2024 01/01/2022, 03/30/2012 Hepatitis B Vaccine Aged Out No longe r eligible based on patient's age to complete this topic Insurance Care Teams Tamping Machine Operator Road Forms Relationship Specialty Start Date End Date Oralia Helton MD [address] [place] [address] PCP - General 03/18/20
== END 2024-07-13 16:20 | disposition home or self-care (01) ==
LOC: HO.HKA 16:03
PROVIDERS: PCP Internal Medicine; Visit Provider Internal Medicine Hypertension Specialist
DX: I1A.0 Resistant hypertension (principal); N18.31 Chronic kidney disease, stage 3a; G43.909 Migraine, unspecified, not intractable, without status migrainosus
CPT/HCPCS: 99214

== ENCOUNTER → 2024-07-13 16:03 | Outpatient (BNVA) | payer OTHER, SELFPAY | PROVIDERS: PCP Internal Medicine; Visit Provider Internal Medicine Hypertension Specialist | DX: I1A.0 Resistant hypertension (principal); I12.9 Hypertensive chronic kidney disease with stage 1 through stage 4 chronic kidney disease, or unspecified chronic kidney disease; N18.31 Chronic kidney disease, stage 3a; G43.909 Migraine, unspecified, not intractable, without status migrainosus | CPT/HCPCS: 99212 ==

== ENCOUNTER 2024-07-14 10:26 | Outpatient (REF) | payer OTHER, SELFPAY ==
--- OUTSIDE RECORDS SUMMARY | 2024-07-14 10:56 | XMS_ITS | Clinical Summary ---
Author Organization [facility] Address [address] [place] [address] Phone Care Team Providers Care Fingerprint Technician Name Role Phone Oralia Helton MD Primary Care Provider [phone] Allergies Active Allergy Reactions Criticality Noted Date [...] (04/23/2021): Mild s/p sleep study done at [facility] January 2020 History of cerebrovascular accident [...] to complete this topic Insurance Care Teams Fingerprint Technician Relationship Specialty Start Date End Date Oralia Helton MD [address] [place] [address] PCP - General 03/18/20
--- OUTSIDE RECORDS SUMMARY | 2024-07-14 10:57 | XMS_ITS | Clinical Summary ---
Author Organization [address] Address [address] [place] [phone] Phone Care Team Providers Care Senior Application Security Consultant Name Role Phone Jo Ann Gagnon MD [...] Illiteracy 04/23/2021 Stage 4 chronic kidney disease ([facility] V24, [facility] V28) 04/23/2021 Overview (01/15/2024): Follows with nephrology secondary to hypertensive kidney disease Vitamin D deficiency 04/23/2021 Recurrent major depressive disorder ([facility] V24 ) 01/16/2021 Obstructive sleep apnea syndrome 02/05/2020 Overview (01/15/2024): Mild s/p sleep study done at [facility] January 2020 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 Overview (01/15/2024): microhemorrhages brain on MRI; felt secondary to uncontrolled HTN Posttraumatic stress disorder 02/06/2016 Encounters Date Type Department Care Team Description 06/26/2024 Telephone Adult Medicine [address] [phone] JoA nn Hall MD Forms/questionnaires ([facility] Physician Summary) 06/23/2024 Telephone Adult Medicine [address] [phone] Jo Ann Hall MD [facility] orders being faxed now -need DEMAR 06/20/2024 9:00 AM EDT Office Visit Adult [address] [phone] Daniela Billingsley PA Elevated blood pressure reading (Primary Dx); Primary hypertension; Pure hypercholesterolemia; History of CVA (cerebrovascular accident); Overweight (BMI 25.0-29.9) 06/12/2024 7:30 AM EDT Office Visit Adult [address] [phone] Blanca Carney PA Routine general medical examination at a health care facility (Primary Dx); Screening for HIV (human immunodeficiency virus); Screening for deficiency anemia; Primary hypertension; Hypertensive renal disease; Pure hypercholesterolemia 05/26/2024 Telephone Adult [address] [phone] Jo Ann Hall MD last physical notes [...] Recommend manometry testing OTHER SURGICAL HISTORY PROCEDURE: IA XTRNL PT ACTIV ECG TRANSMIS W/R&I </30 DAYS Medical History Medical History Date Comments TIA (transient ischemic attack) Apr 2014, Mar 27 DX:TIA (transient ischemic attack) Hyperlipidemia DX:Hyperlipidemi a GERD (gastroesophageal reflu x disease) DX:GERD (gastroesophageal re flux disease) Illiteracy DX:Illiteracy Esophageal stricture 12/09/2016 DX:Esophage al stricture Microangiopathy ([facility] V24) 12/09/2016 DX :Microangiopathy ([facility]); COMMENT: microhemorrhages brain on MRI; felt secondary [...] dise ase) stage 3, GFR 30-59 ml/min ([facility]) Diverticulosis 11/11/2018 DX:Diverticulosi s Internal hemorrhoids 11/11/2018 DX:Internal hemorrhoids Implantable loop recorder present DX:Implantable loop recorder present Family History Medical History Relation Name Comments No Known Problems Brother 1 No Known Problems Brother 2 No Known Problems Brother 3 No Known Problems Brother 4 No Known Problems Brother 5 Migraines Daughter 1 No Known Problems Daughter [address]? Stroke? uns ure. in sleep Hypertension Mother [...] 9:30 AM EDT Office Visit Adult Medicine [facility] [address] [place] [phone] Daniela Billingsley PA [address] [place] [address] Health Maintenance Due Date Last Done Comments [...] LAB CHEMISTRY METHOD 06/12/2024 3:31 PM EDT [facility] Blood Venous blood specimen / Unknown Venipuncture / Unknown 06/12/2024 9:00 AM EDT 06/12/2024 9:00 AM EDT Narrative [facility] - 06/12/2024 3:31 PM [...] [facility] LAB BLOOD ORDERABLES Final Resul t [facility] [address] [place] [address], [place] [phone] * (ABNORMAL) Lipid panel with reflex to direct LDL (06/12/2024 9:00 AM EDT) Pathologist [facility] Cholesterol 114 0 - 200 mg/dL LAB CHEMISTRY METHOD 06/12/2024 2:09 PM EDT [facility] Triglycerides 133 0 - 150 mg/dL LAB CHEMISTRY METHOD 06/12/2024 2:09 PM EDT [facility] HDL 39(L) >=40 mg/dL LAB CHEMISTRY METHOD 06/12/2024 2:09 PM EDT [facility] LDL Calculated 48 0 - 100 mg/dL LAB CHEMISTRY METHOD 06/12/2024 2:09 PM EDT [facility] VLDL Cholesterol Blue 26.6 mg/dL LAB CHEMISTRY METHOD 06/12/2024 2:09 PM EDT [facility] Non HDL Chol. (LDL+VLDL) 75 <145 mg/dL LAB CHEMISTRY METHOD 06/12/2024 2:09 PM EDT [facility] Chol/HDL Ratio 2.9 0.0 - 4.4 LAB CHEMISTRY METHOD 06/12/2024 2:09 PM EDT [facility] Blood Venous blood specimen / Unknown Venipuncture / Unknown 06/12/2024 9:00 AM EDT 06/12/2024 9:00 AM EDT us Blanca [facility]AN LAB BLOOD ORDERABLES Final Resul t [facility] [address] [place] [address], [place] [phone] * (ABNORMAL) Complete blood count (06/12/2024 9:00 AM EDT) Pathologist [facility] WBC 7.3 4.8 - 10.8 K/mcL LAB HEMETOLOGY METHOD 06/12/2024 11:06 AM [facility] RBC 3.80 3.80 - 4.80 M/mcL LAB HEMETOLOGY METHOD 06/12/2024 11:06 AM [facility] Hemoglobin 11.4(L) 11.5 - 16.0 g/dL LAB HEMETOLOGY METHOD 06/12/2024 11:06 AM [facility] Hematocrit 37.1 35.0 - 47.0 % LAB HEMETOLOGY METHOD 06/12/2024 11:06 AM [facility] MCV 96.9 79.0 - 98.0 FL LAB HEMETOLOGY METHOD 06/12/2024 11:06 AM [facility] MCH 29.8 27.0 - 32.0 pcg LAB HEMETOLOGY METHOD 06/12/2024 11:06 AM [facility] MCHC 30.7(L) 32.0 - 37.0 g/dL LAB HEMETOLOGY METHOD 06/12/2024 11:06 AM [facility] RDW 14.5 11.0 - 15.0 % LAB HEMETOLOGY METHOD 06/12/2024 11:06 AM [facility] Platelets 327 130 - 400 K/mcL LAB HEMETOLOGY METHOD 06/12/2024 11:06 AM [facility] MPV 11.7(H) 7.0 - 11.0 FL LAB HEMETOLOGY METHOD 06/12/2024 11:06 AM [facility] NRBC 0.0 <1.0 % LAB HEMETOLOGY METHOD 06/12/2024 11:06 AM [facility] NRBC Absolute 0.00 <0.10 K/mcL LAB HEMETOLOGY METHOD 06/12/2024 11:06 AM [facility] Blood Venous blood specimen / Unknown Venipuncture / Unknown 06/12/2024 9:00 AM EDT 06/12/2024 9:00 AM EDT us Blanca Rommel [facility] LAB BLOOD ORDERABLES Final Resul t [facility] [address] [place] [address], [place] [phone] * (ABNORMAL) Comprehensive metabolic panel (06/12/2024 9:00 AM EDT) Sodium 140 133 - 145 mmol/L LAB CHEMISTRY METHOD 06/12/2024 2:09 PM [facility] Potassium 3.8 3.5 - 5.5 mmol/L LAB CHEMISTRY METHOD 06/12/2024 2:09 PM [facility] Chloride 108 96 - 110 mmol/L LAB CHEMISTRY METHOD 06/12/2024 2:09 PM [facility] CO2 22 21 - 32 mmol/L LAB CHEMISTRY METHOD 06/12/2024 2:09 PM [facility] Anion Gap 10 3 - 11 LAB CHEMISTRY METHOD 06/12/2024 2:09 PM [facility] Glucose 107(H) 70 - 100 mg/dL LAB CHEMISTRY METHOD 06/12/2024 2:09 PM [facility] BUN 35(H) 5 - 25 mg/dL LAB CHEMISTRY METHOD 06/12/2024 2:09 PM [facility] Creatinine 1.79(H) 0.50 - 1.10 mg/dL LAB CHEMISTRY METHOD 06/12/2024 2:09 PM [facility] eGFR 32(L) >=60 mL/min/1. 73m2 LAB CHEMISTRY METHOD 06/12/2024 2:09 PM [facility] Comment:Calculation based on the??Chronic Kidney Disease Epidemiology Collaboration (CKD-EPI) equation refit??without adjustment for race. BUN/Creatinine Ratio 19.6 LAB CHEMISTRY METHOD 06/12/2024 2:09 PM EDT [facility] Calcium 9.7 8.5 - 10.5 mg/dL LAB CHEMISTRY METHOD 06/12/2024 2:09 PM EDT [facility] AST (SGOT) 16 10 - 42 unit/L LAB CHEMISTRY METHOD 06/12/2024 2:09 PM T [facility] ALT (SGPT) 29 10 - 60 unit/L LAB CHEMISTRY METHOD 06/12/2024 2:09 PM EDT [facility] Alkaline Phosphatase 108 42 - 121 unit/L LAB CHEMISTRY METHOD 06/12/2024 2:09 PM T [facility] Total Protein 7.7 6.0 - 8.0 g/dL LAB CHEMISTRY METHOD 06/12/2024 2:09 PM [facility] Albumin 3.7 3.2 - 5.0 g/dL LAB CHEMISTRY METHOD 06/12/2024 2:09 PM [facility] Total Bilirubin 0.4 0.0 - 1.4 mg/dL LAB CHEMISTRY METHOD 06/12/2024 2:09 PM T [facility] Blood Venous blood specimen / Unknown Venipuncture / Unknown 06/12/2024 9:00 AM EDT 06/12/2024 9:00 AM EDT us Blanca Rommel [facility] LAB BLOOD ORDERABLES Final Resul t [facility] [address] [place] [address], * SCREENING MAMMOGRAPHY BI 2-VIEW [employer] [...] Recommendation: Routine annual screening mammography is recommended [address] [phone] Procedure Note Hank Lundberg MD - 01/08/2024 [...] Recommendation: Routine annual screening mammography is recommended [address] [phone] Daniela [facility]UNCAN IMG XR PROCEDURES Final Result from Last 3 Months or Most Recently Relevant to Health Maintenance Insurance [employer]AN Advance Directives Documents on File Type Date Recorded Patient Filter Operator Expl anation Health Care Decision (hx) 01/11/2022 LAXMI KAHN DIRECTIVE Care Teams Senior Application Security Consultant Relationship Specialty Start Date End Date Jo Ann Gagnon MD [address] [place] [id number] PCP - General Internal Medicine 10/07/21
[2024-07-14 11:01] LABS: Hematocrit 34.2 % (37.0-47.0); Hemoglobin 10.9 g/dl (12.0-16.0); Mean Corpuscular HGB Conc 31.9 g/dl (31.0-35.0); Mean Corpuscular Hemoglobin 29.6 pg (27.0-33.0); Mean Corpuscular Volume 92.9 fL (80.0-98.0); Mean Platelet Volume 10.5 fL (9.4-12.3); Platelet Count 382 X10*3/uL (160-400); Red Blood Count 3.68 X10*6/uL (4.20-5.50); Red Cell Distribution Width 14.6 % (11.0-16.0); White Blood Count 15.5 X10*3/uL (4.8-10.8)
[2024-07-14 11:29] LABS: Alanine Aminotransferase 27 U/L (0-31); Alkaline Phosphatase 102 U/L (39-117); Anion Gap 9 (12-20); Aspartate Amino Transferase 28 U/L (5-31); Bilirubin Total 0.6 mg/dL (0.0-1.0); Blood Urea Nitrogen 30 mg/dL (9-16); Calcium 9.4 mg/dL (8.4-10.2); Carbon Dioxide 24 mmol/L (22-29); Chloride 102 mmol/L (96-108); Estimated Glomerular Filt Rate 36; Glucose Random 95 mg/dL (60-115); Potassium 4.3 mmol/L (3.3-5.1); Sodium 131 mmol/L (135-145); Total Protein 7.9 g/dL (6.5-8.0)
== END 2024-07-14 10:27 | disposition home or self-care (01) ==
LOC: HO.LAB 10:26
PROVIDERS: PCP Internal Medicine; Visit Provider Internal Medicine Hypertension Specialist
DX: N18.31 Chronic kidney disease, stage 3a (principal); I1A.0 Resistant hypertension
CPT/HCPCS: 36415; 80053; 85027

== ENCOUNTER 2024-08-14 13:39 | Outpatient (AMB) | payer OTHER, SELFPAY ==
--- NOTE | 2024-08-14 13:43 | HO.NEPHOV ---
Vital Signs 08/14/24 13:44 Height 5 ft 2 in Weight 140 lb 8 oz BMI 25.7 BP 110/70 Blood Pressure Location Lt brachial Position Sitting Pulse 53 Pulse Source Pulse Oximeter Pulse Oximetry (%) 97 Oxygen Delivery Method Room Air Intake Visit Reasons: 1 MO FU/ Conf Associate Programmer Required: No Accompanied by: Grand Child Allergies oxycodone [From PERCOCET] Allergy (Intermediate, Verified 08/14/24 13:44) RASH codeine [Codeine] Allergy (Unknown, Verified 08/14/24 13:44) SHORTNESS OF BREATH morphine [Morphine] Adverse Reaction (Unknown, Verified 08/14/24 13:44) CHEST PAIN Percocet Allergy (Unknown, Uncoded 12/30/10 00:00) anxiety Vicodin Allergy (Unknown, Uncoded 12/30/10 00:00) rash Medication List - Last Reconciled 08/14/24 by Tyrone Edmonds MD acetaminophen mg PO PRN aspirin 81 mg PO DAILY atenolol 25 mg PO DAILY atorvastatin 80 mg PO DAILY hydralazine 100 mg PO TID metoprolol succinate ER 25 mg PO DAILY mirtazapine 7.5 mg PO BEDTIME spironolacton-hydrochlorothiaz 25-25 mg 2 tabs PO DAILY HPI Comments Details: 63-year-old woman with resistant hypertension. She has significant vascular disease in the form of splenic artery aneurysm, thoracic artery aneurysm and history of hemorrhagic stroke in the past. She has had difficult to control blood pressure and she has been on several medications. She had a CT angiogram of renal arteries which did not reveal any renal artery stenosis in 2019. Plasma catecholamines were normal. Serum aldosterone was 18 with a plasma renin activity of 0.18. CT of the adrenals did not reveal any significant pathology. Again 6 background she has significant migraine and she is had a recent visit to the emergency room. 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 05/10/23;Did not start aldactazide yet; c/o 2 episodes of vertigo 07/13/24 Here for follow up after almost a year ;Accompanied by family ;Meds reviewed ;Not on Amlodipine anymore ;On Aldactazide 50/50 daily ( was on 25/25 daily) ;Recently had a fall. No lightheadedness. Says she tripped over pavement . 08/14/24 63-year-old female presenting with a primary concern of essential hypertension. Recently, she has experienced significant fluctuations in her blood pressure, with elevated readings causing concern. About two weeks ago, she sought emergency care due to severe hypertension accompanied by unilateral numbness and weakness, reminiscent of past stroke symptoms. This led to a hospital admission for observation, where she underwent CT scans and blood tests. Throughout this event, no changes were made to her hypertension management pharmacotherapy. Past medical history is significant for chronic kidney disease, currently assessed at stage 3, and there is a history of previous stroke. The patient reports symptoms prevalent during physical exertion, like mopping, including pain and numbness in her right arm and leg. Despite extensive evaluation, she has not encountered fresh interventions following prior neurological review. Attention is being given to maintaining blood pressure at optimal levels to prevent further decline in renal function and avoid exacerbating symptoms of weakness and fatigue associated with her comorbid conditions. [facility], [facility] Medical History (Updated 04/12/23 @ 14:59 by Tyrone Edmonds MD) Acute CVA (cerebrovascular accident) Migraines HTN (hypertension) Surgical History H/O section Family History Father Hypertension Diabetes Mother Heart murmur Social History Alcohol intake: never Patient Tobacco Use Status: Never used Tobacco Physical Exam Vital Signs: Last Vital Signs Pulse 53 08/14/24 13:44 BP 110/70 08/14/24 13:44 Pulse Ox 97 08/14/24 13:44 Oxygen Delivery Method Room Air 08/14/24 13:44 BMI result Body Mass Index 25.7 Comfortable Neck supple no JVD. Lungs entry equal no rales. Heart S1-S2 heard no gallop or rub. Abdomen soft nontender. Neuro alert awake oriented. No asterixis. Extremities no edema. Results Reviewed Nephrology Results: Hgb 10.9 g/dl (12.0-16.0) L 07/14/24 WBC 15.5 X10*3/uL (4.8-10.8) H 07/14/24 Plt Count 382 X10*3/uL (160-400) 07/14/24 Sodium 131 mmol/L (135-145) L 07/14/24 Potassium 4.3 mmol/L (3.3-5.1) 07/14/24 Chloride 102 mmol/L (96-108) 07/14/24 Carbon Dioxide 24 mmol/L (22-29) 07/14/24 BUN 30 mg/dL (9-16) H 07/14/24 Creatinine 1.47 mg/dL (0.5-1.4) H 07/14/24 Calcium 9.4 mg/dL (8.4-10.2) 07/14/24 Assessment & Plan Assessment & Plan (1) HTN (hypertension): Code(s): I10 - Essential (primary) hypertension Category: Medical Qualifiers: Hypertension type: resistant hypertension Qualified Code(s): I1A.0 - Resistant hypertension (2) CKD (chronic kidney disease) stage 3, GFR 30-59 ml/min: Code(s): N18.30 - Chronic kidney disease, stage 3 unspecified Category: Medical Qualifiers: Chronic kidney disease stage 3 subtype: stage 3a (GFR 45-59) Qualified Code(s): N18.31 - Chronic kidney disease, stage 3a (3) Migraines: Code(s): G43.909 - Migraine, unspecified, not intractable, without status migrainosus Category: Medical Plan . Middle-aged woman with resistant hypertension setting of vascular disease. 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 CKD 3 Renal function stable at baseline with a cr of 1.4 and eGFR of 40 ml/mt Blood pressure is well controlled. I have reviewed all her medications. Keep current meds Encouraged her to stay on a low-sodium diet. Repeat 24 hr ABPM Needs neurology follow up Orders: Orders AMB 24 HR B/P Monitor PLACEMENT Today I10 - Essential (primary) hypertension Basic Metabolic Panel 8 Weeks I1A.0 - Resistant hypertension, N18.31 - Chronic kidney disease, stage 3a Complete Blood Count no Diff 8 Weeks I1A.0 - Resistant hypertension, N18.31 - Chronic kidney disease, stage 3a Coding Level of Care Code Est Pt Level 4 (97391) Diagnoses Resistant hypertension I1A.0 Hypertension type: resistant hypertension Stage 3a chronic kidney disease N18.31 Chronic kidney disease stage 3 subtype: stage 3a (GFR 45-59) Migraines G43.901
[2024-08-14 13:44] VITALS: BP 110/70; PULSE 53; O2SAT 97; BMI 25.7
--- OUTSIDE RECORDS SUMMARY | 2024-08-14 15:26 | XMS_ITS | Clinical Summary ---
Author Organization [address] Address [address] [place] [phone] Phone Care Team Providers Care Escort Service Attendant Name Role Phone Jo Ann Gagnon MD [...] a day. 270 tablet 1 5 Active spironolactone- hydroCHLOROthia zide (Aldactazide) 50-50 mg per tablet Take 1 tablet (50 mg total) by mouth 1 (one) time each day. 90 tablet 5 Active aspirin 81 mg EC tablet Take 1 tablet (81 mg total) by mouth 1 (one) time each day. 90 tablet 5 Active aspirin 81 mg EC tablet Take 1 tablet (81 mg total) by mouth 1 (one) time each day. 4 08/08/19 25 Discontinu ed(Reorder ) Active Problems Problem Noted Date Diagnosed Date History of CVA (cerebrovascular accident) 2024 Overweight (BMI 25.0-29.9) 06/20/2024 Hypertension 01/15/2024 GERD (gastroesophageal reflux disease) 4 Implantable loop recorder present 10/15/2022 Hyperlipidemia 04/23/2021 Illiteracy 04/23/2021 Stage 4 chronic kidney disease ([facility] V24, [facility] V28) 04/23/2021 Overview (01/15/2024): Follows with nephrology secondary to hypertensive kidney disease Vitamin D deficiency 04/23/2021 Recurrent major depressive disorder ([facility] V24 ) 01/16/2021 Obstructive sleep apnea syndrome 02/05/2020 Overview (01/15/2024): Mild s/p sleep study done at [facility] January 2020 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 Overview (01/15/2024): microhemorrhages brain on MRI; felt secondary to uncontrolled HTN Posttraumatic stress disorder 02/06/2016 Encounters Date Type Department Care Team Description 07/18/2024 9:30 AM EDT Office Visit Adult [address] [phone] Daniela Billingsley PA Elevated blood pressure reading (Primary Dx); Primary hypertension; Pure hypercholesterolemia 06/26/2024 Telephone Adult [address] [phone] Jo Ann Hall MD Forms[facility]questionnaires [facility] Phys[facility] Summary) 06/23/2024 Telephone Adult Medicine [address] [phone] Jo Ann Hall MD [facility] orders being faxed now -need DEMAR 06/20/2024 9:00 AM EDT Office Visit [address] [phone] Daniela Billingsley PA Elevated blood pressure reading (Primary Dx); Primary hypertension; Pure hypercholesterolemia; History of CVA (cerebrovascular accident); Overweight (BMI 25.0-29.9) 06/12/2024 7:30 AM EDT Office Visit Adult [address] [phone] Blanca Carney PA Routine general medical examination at a health care facility (Primary Dx); Screening for HIV (human immunodeficiency virus); Screening for deficiency anemia; Primary hypertension; Hypertensive renal disease; Pure hypercholesterolemia 05/26/2024 Telephone Adult [address] [phone] Jo Ann Hall MD last physical notes [...] Recommend manometry testing OTHER SURGICAL HISTORY PROCEDURE: [place] XTRNL PT ACTIV ECG TRANSMIS W/R&I </30 DAYS Medical History Medical History Date Comments TIA (transient ischemic attack) Apr 2014, Mar 27 DX:TIA (transient ischemic attack) Hyperlipidemia DX:Hyperlipidemi a GERD (gastroesophageal reflu x disease) DX:GERD (gastroesophageal re flux disease) Illiteracy DX:Illiteracy Esophageal stricture 12/09/2016 DX:Esophage al stricture Microangiopathy (CMS/HCC V24) 12/09/2016 DX :Microangiopathy (HCC); COMMENT: microhemorrhages brain on MRI; felt secondary [...] dise ase) stage 3, GFR 30-59 ml/min ([facility]) Diverticulosis 11/11/2018 DX:Diverticulosi s Internal hemorrhoids 11/11/2018 DX:Internal hemorrhoids Implantable loop recorder present DX:Implantable loop recorder present Family History Medical History Relation Name Comments No Known Problems Brother 1 No Known Problems Brother 2 No Known Problems Brother 3 No Known Problems Brother 4 No Known Problems Brother 5 Migraines Daughter 1 No Known Problems Daughter 2 x3 Hypertension Father [place]? Stroke? uns ure. in sleep Hypertension Mother [...] Sign Reading Time Taken Comments Blood Pressure 149/82 07/18/2024 9:50 AM EDT Pulse 80 07/18/2024 9:36 AM EDT Temperature 36 ??C (96.8 ??F) 07/18/2024 9:36 AM EDT Respiratory Rate 13 07/18/2024 9:36 AM EDT Oxygen Saturation 95% 07/18/2024 9:36 AM EDT Inhaled Oxygen Concentration - - Weight 63.4 kg (139 lb 12.8 oz) 07/18/2024 9:36 AM EDT Height 157.5 cm (5' 2 ) 07/18/2024 9:36 AM EDT Body Mass Index 25.57 07/18/2024 9:36 AM EDT Plan of Treatment Upcoming Encounters Date Type Department Care Team (Late st Contact Info) Description 08/29/2024 11:30 AM EDT Office Visit Adult Medicine [address] [phone] Jo Ann Gagnon MD [address] [place] [address] Health Maintenance Due Date Last Done Comments COVID-19 Vaccine (#1) 10[birth year]08/1965 DTaP,Tdap,and Td Vaccines (1 - Tdap) 1981 Pneumococcal Vaccine: 50+ Years (1 of 1 - PCV) 2012 Zoster Vaccines (1 of 2) 2012 Social Influencers of Health Screening 09/16/2024 09/17/2023 Cervical Cancer Screening: HPV 09/20/2024 09/21/2019 Influenza Vaccine (Season Ended) 2024 01/01/2022, 03/30/2012 Breast Cancer Screening 12/28/2024 12/29/19, 12/29/2023, 12/25/2022, Additional history exists Depression Screening 12/29/2024 12/30/2023 Hypertension/CHF/CAD Annual BMP Blood Test 07/14/2025 07/14/2024, 06/12/2024, 09/28/2022 Colorectal Cancer Screening: Colonoscopy 11/11/2028 11/11/2018 Cholesterol Screening (Lipid Panel) 06/12/2029 06/12/2024, 05/11/2022 RSV Immunization Adult Patients (1 - 1-dose 75+ series) 2037 Hepatitis C Screening Addressed 06/24/2018 Overri dden [...] Procedure Name Priority Date/Time Associated Diagnosis Comments COMPREHENSIVE METABOLIC PANEL Routine 07/14/2024 9:54 AM EDT Elevated blood pressure reading Primary hypertension ECG 12-LEAD TRACING ONLY Routine 06/20/2024 9:31 AM EDT Elevated blood pressure reading Primary hypertension COMPLETE BLOOD COUNT Routine 06/12/2024 9:00 AM EDT Screening for deficiency anemia COMPREHENSIVE METABOLIC PANEL Routine 06/12/2024 9:00 AM EDT Routine general medical examination at a [facility] facility LIPID PANEL WITH REFLEX TO DIRECT [...] Recently Relevant to Health Maintenance Results * (ABNORMAL) Comprehensive metabolic panel (07/14/2024 9:54 AM EDT) Only the most recent of2 resultswithin the time period is included. Sodium 136 133 - 145 mmol/L LAB CHEMISTRY METHOD 07/14/2024 1:27 PM EDT [facility] Potassium 4.5 3.5 - 5.5 mmol/L LAB CHEMISTRY METHOD 07/14/2024 1:27 PM T [facility] Chloride 105 96 - 110 mmol/L LAB CHEMISTRY METHOD 07/14/2024 1:27 PM [facility] CO2 22 21 - 32 mmol/L LAB CHEMISTRY METHOD 07/14/2024 1:27 PM [facility] Anion Gap 9 3 - 11 LAB CHEMISTRY METHOD 07/14/2024 1:27 PM T [facility] Glucose 96 70 - 100 mg/dL LAB CHEMISTRY METHOD 07/14/2024 1:27 PM [facility] BUN 33(H) 5 - 25 mg/dL LAB CHEMISTRY METHOD 07/14/2024 1:27 PM [facility] Creatinine 1.61(H) 0.50 - 1.10 mg/dL LAB CHEMISTRY METHOD 07/14/2024 1:27 PM [facility] eGFR 36(L) >=60 mL/min/1. 73m2 LAB CHEMISTRY METHOD 07/14/2024 1:27 PM [facility] Comment:Calculation based on the Chronic Kidney Disease Epidemiology Collaboration (CKD-EPI) equation refit without adjustment for race. BUN/Creatinine Ratio 20.5 LAB CHEMISTRY METHOD 07/14/2024 1:27 PM [facility] Calcium 9.5 8.5 - 10.5 mg/dL LAB CHEMISTRY METHOD 07/14/2024 1:27 PM [facility] AST (SGOT) 20 10 - 42 unit/L LAB CHEMISTRY METHOD 07/14/2024 1:27 PM [facility] ALT (SGPT) 31 10 - 60 unit/L LAB CHEMISTRY METHOD 07/14/2024 1:27 PM [facility] Alkaline Phosphatase 119 42 - 121 unit/L LAB CHEMISTRY METHOD 07/14/2024 1:27 PM [facility] Total Protein 8.1(H) 6.0 - 8.0 g/dL LAB CHEMISTRY METHOD 07/14/2024 1:27 PM [facility] Albumin 3.8 3.2 - 5.0 g/dL LAB CHEMISTRY METHOD 07/14/2024 1:27 PM [facility] Total Bilirubin 0.6 0.0 - 1.4 mg/dL LAB CHEMISTRY METHOD 07/14/2024 1:27 PM [facility] Blood Venous blood specimen / Unknown Venipuncture / Unknown 07/14/2024 9:54 AM EDT 07/14/2024 9:54 AM EDT Daniela DUNCAN LAB BLOOD ORDERABLES Final Resu lt Performing Organization Address [facility]/ZIP Co de Phone Number [facility] [address] [place] [address], [place] [phone] * ECG 12 lead Tracing Only (06/20/2024 9:31 AM EDT) 06/20/2024 9:31 AM EDT Daniela DUNCAN ECG ORDERABLES Final Result * HIV 1,2 antibody, p24 antigen with reflex to differentiation (06/12/2024 9:00 AM EDT) HIV Combo AB/AG Negative Negative LAB CHEMISTRY METHOD 06/12/2024 3:31 PM EDT [facility] Blood Venous blood specimen / Unknown Venipuncture / Unknown 06/12/2024 9:00 AM EDT 06/12/2024 9:00 AM EDT Narrative [facility] - 06/12/2024 3:31 PM EDT This [...] DUNCAN LAB BLOOD ORDERABLES Final Resul t Performing Organization Address [facility]/ZIP Co de Phone Number [facility] [address] [place] [address], [place] [phone] * (ABNORMAL) Lipid panel with reflex to direct LDL (06/12/2024 9:00 AM EDT) Cholesterol 114 0 - 200 mg/dL LAB CHEMISTRY METHOD 06/12/2024 2:09 PM EDT [facility] Triglycerides 133 0 - 150 mg/dL LAB CHEMISTRY METHOD 06/12/2024 2:09 PM EDT [facility] HDL 39(L) >=40 mg/dL LAB CHEMISTRY METHOD 06/12/2024 2:09 PM EDT [facility] LDL Calculated 48 0 - 100 mg/dL LAB CHEMISTRY METHOD 06/12/2024 2:09 PM EDT [facility] VLDL Cholesterol Blue 26.6 mg/dL LAB CHEMISTRY METHOD 06/12/2024 2:09 PM EDT [facility] Non HDL Chol. (LDL+VLDL) 75 <145 mg/dL LAB CHEMISTRY METHOD 06/12/2024 2:09 PM EDT [facility] Chol/HDL Ratio 2.9 0.0 - 4.4 LAB CHEMISTRY METHOD 06/12/2024 2:09 PM EDT [facility] Blood Venous blood specimen / Unknown Venipuncture / Unknown 06/12/2024 9:00 AM EDT 06/12/2024 9:00 AM EDT us Blanca Rommel DUNCAN LAB BLOOD ORDERABLES Final Resul t [facility] [address] [place] [address], * (ABNORMAL) Complete blood count (06/12/2024 9:00 AM EDT) WBC 7.3 4.8 - 10.8 K/mcL LAB HEMETOLOGY METHOD 06/12/2024 11:06 AM EDT [facility] RBC 3.80 3.80 - 4.80 M/mcL LAB HEMETOLOGY METHOD 06/12/2024 11:06 AM [facility] Hemoglobin 11.4(L) 11.5 - 16.0 g/dL LAB HEMETOLOGY METHOD 06/12/2024 11:06 AM T [facility] Hematocrit 37.1 35.0 - 47.0 % LAB HEMETOLOGY METHOD 06/12/2024 11:06 AM [facility] MCV 96.9 79.0 - 98.0 FL LAB HEMETOLOGY [facility] MCH 29.8 27.0 - 32.0 pcg LAB HEMETOLOGY METHOD 06/12/2024 11:06 AM EDT [facility] MCHC 30.7(L) 32.0 - 37.0 g/dL LAB HEMETOLOGY METHOD 06/12/2024 11:06 AM [facility] RDW 14.5 11.0 - 15.0 % LAB HEMETOLOGY METHOD 06/12/2024 11:06 AM [facility] Platelets 327 130 - 400 K/mcL LAB HEMETOLOGY METHOD 06/12/2024 11:06 AM [facility] MPV 11.7(H) 7.0 - 11.0 FL LAB HEMETOLOGY METHOD 06/12/2024 11:06 AM [facility] NRBC 0.0 <1.0 % LAB HEMETOLOGY METHOD 06/12[facility]2024 [facility] NRBC Absolute 0.00 <0.10 K/mcL LAB HEMETOLOGY METHOD 06/12/2024 11:06 AM [facility] Blood Venous blood specimen / Unknown Venipuncture / Unknown 06/12/2024 9:00 AM EDT 06/12/2024 9:00 AM EDT us Blanca Rommel DUNCAN LAB BLOOD ORDERABLES Final Resul t [facility] [address] [place], [place] [address] [phone] * SCREENING MAMMOGRAPHY BI 2-VIEW BREAST INC [...] Recommendation: Routine annual screening mammography is recommended [facility] [address] [address] Procedure Note Hank Lundberg MD - 01/08/2024 [...] Recommendation: Routine annual screening mammography is recommended [facility] [address] [place], [place] [id number] Daniela DUNCAN IMG XR PROCEDURES Final Result from Last 3 Months or Most Recently Relevant to Health Maintenance [place] [address] [place] [address] HEALTH PLAN Advance Directives Documents on File Type Date Recorded Patient Health Care Attorney Expl anation Health Care Decision (hx) 01/11/2022 LAXMI KAHN DIRECTIVE Care Teams Escort Service Attendant Relationship Specialty Start Date End Date Jo Ann Gagnon MD [address] [place] [phone] PCP - General Internal Medicine 10/07/21
== END 2024-08-14 14:01 | disposition home or self-care (01) ==
LOC: HO.HKA 13:39
PROVIDERS: PCP Internal Medicine; Visit Provider Internal Medicine Hypertension Specialist
DX: I1A.0 Resistant hypertension (principal); N18.31 Chronic kidney disease, stage 3a; G43.909 Migraine, unspecified, not intractable, without status migrainosus
CPT/HCPCS: 99214

== ENCOUNTER → 2024-08-14 13:39 | Outpatient (BNVA) | payer OTHER, SELFPAY | PROVIDERS: PCP Internal Medicine; Visit Provider Internal Medicine Hypertension Specialist | DX: I10 Essential (primary) hypertension (principal); G43.909 Migraine, unspecified, not intractable, without status migrainosus; N18.31 Chronic kidney disease, stage 3a | CPT/HCPCS: 99212 ==

== ENCOUNTER 2024-09-25 13:01 | Outpatient (AMB) | payer OTHER, SELFPAY ==
--- NOTE | 2024-09-25 13:19 | A.OFFVIS_ITS ---
Intake Visit Reasons: Recent stroke Allergies oxycodone (From PERCOCET) Allergy (Intermediate, Verified 08/14/24 13:44) RASH codeine (Codeine) Allergy (Unknown, Verified 08/14/24 13:44) SHORTNESS OF BREATH morphine (Morphine) Adverse Reaction (Unknown, Verified 08/14/24 13:44) CHEST PAIN Percocet Allergy (Unknown, Uncoded 12/30/10 00:00) anxiety Vicodin Allergy (Unknown, Uncoded 12/30/10 00:00) rash Medication List - Last Reconciled 09/25/24 by Shantell Arellano MD acetaminophen mg PO PRN aspirin 81 mg PO DAILY atenolol 25 mg PO DAILY atorvastatin 80 mg PO DAILY hydralazine 100 mg PO TID metoprolol succinate ER 25 mg PO DAILY mirtazapine 7.5 mg PO BEDTIME omeprazole 20 mg PO DAILY sertraline 25 mg PO DAILY spironolacton-hydrochlorothiaz 25-25 mg 2 tabs PO DAILY sumatriptan succinate take 1 tab at onset of headache; if no relief, may repeat 1 tab after at least 2 hrs; max = 2 tabs/24 hrs PO HPI Comments Details: 63 years old woman with hypertension, anxiety, depression, migraine, and HTN related cerebral microvascular disease of brain. She was doing relatively okay but walking with a walker. Mood was okay. No new stroke-like symptoms. [facility] Medical History (Updated 09/25/24 @ 13:26 by Shantell Arellano MD) Cerebral microvascular disease Anxiety Acute CVA (cerebrovascular accident) Migraines HTN (hypertension) Surgical History H/O section Family History Father Hypertension Diabetes Mother Heart murmur Social History Alcohol intake: never Patient Tobacco Use Status: Never used Tobacco Review of Systems Const Details: Constitutional:?No fever, chills, fatigue, weight loss, or night sweats. HEENT:?No headache, vision changes, hearing loss, nasal congestion, sore throat. Neurological:? Forgetfulness and difficulty walking Psychiatric:?OK Endocrine:?No heat/cold intolerance, polydipsia, polyuria, or hair/skin changes. Hematologic/Lymphatic:?No easy bruising, bleeding, or lymphadenopathy. Integumentary (Skin):?No rash, lesions, itching, or color changes. ? Physical Exam Neuro Other: Mental Status: Alert and oriented to person, place, and time. Normal attention. Normal spontaneous speech, fluency, and comprehension. Cranial Nerves: CN II: Visual avila full to confrontation, visual acuity intact. CN III, IV, : Pupils equal, round, reactive to light and accommodation. Extraocular movements are normal. CN V: Facial sensation is normal. CN VII: Facial movements symmetrical. CN VIII: Hearing intact to bedside conversation is normal. CN IX, X: Palate elevates symmetrically. CN XI: Shoulder shrug and head turn symmetrical. CN XII: Tongue midline without atrophy or fasciculations. Walking with a walker. Extrapyramidal: Full facial expressions and blinking. No rigidity. Movements are appropriate with no tremor or abnormality. Speech: Normal; no dysarthria or tremor. Assessment & Plan Assessment & Plan (1) Migraines: Code(s): G43.909 - Migraine, unspecified, not intractable, without status migrainosus Category: Medical Qualifiers: Intractability: not intractable Migraine type: migraine (< 15 days per month) without aura Status migrainosus presence: without status migrainosus Qualified Code(s): G43.009 - Migraine without aura, not intractable, without status migrainosus (2) Cerebral microvascular disease: Comment: 12/18/19 NCV/EMG UE This is a normal study. CT brain WO at [facility] in July 2019: mod WM hypodensities MRI brain WO at [facility] in July 2019: mod to severe WM lesions, including in brainstem, suggestive of MVD Code(s): I67.89 - Other cerebrovascular disease Category: Medical (3) Vascular dementia: Code(s): F01.50 - Vascular dementia, unspecified severity, without behavioral disturbance, psychotic disturbance, mood disturbance, and anxiety Category: Medical Qualifiers: Dementia behavioral or psychological symptom: with anxiety Dementia severity: mild Qualified Code(s): F01.A4 - Vascular dementia, mild, with anxiety Plan Impression: a: HTN 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 b: Gait disorder from brain disease c: Vascular dementia d: Migraine w/o aura Rec: a: Regular use of walker to avoid falls b: Aspirin 81mg daily c: Statin therapy d: BP control Coding Level of Care Code Est Pt Level 4 (54657) Diagnoses Migraine without aura and without status migrainosus, not intractable G43.009 Intractability: not intractable Migraine type: migraine (< 15 days per month) without aura Status migrainosus presence: without status migrainosus Cerebral microvascular disease I67.89 Mild vascular dementia with anxiety F01.A4 Dementia behavioral or psychological symptom: with anxiety Dementia severity: mild
--- OUTSIDE RECORDS SUMMARY | 2024-09-25 13:47 | XMS_ITS | Clinical Summary ---
Author Organization [facility] Address [address] [place] [address] Phone Care Team Providers Care Training And Documentation Specialist Name Role Phone Oralia Helton MD Primary Care Provider [phone] Allergies Active Allergy Reactions Criticality Noted Date [...] (04/23/2021): Mild s/p sleep study done at [facility] January 2020 History of cerebrovascular accident [...] Colorectal Cancer Screening: Sigmoidoscopy 10/08/2011 Influenza Vaccine (#1) 2024 2, 03/30/2012 Hepatitis B Vaccine Aged Out No longe r eligible based on patient's age to complete this topic Insurance Care Teams Training And Documentation Specialist Relationship Specialty Start Date End Date Oralia Helton MD [address] [place] [address] PCP - General 03/18/20
--- OUTSIDE RECORDS SUMMARY | 2024-09-25 13:47 | XMS_ITS | Patient Health Record ---
Author Organization [facility] Address [address] [place] [address] Care Team Providers Care Chemist Intern Name Role Phone Rafy (RETIRED) Ghassan RILEY Primary Care Provide r Unavailable Link Raya Unavailable [phone] JOSEPH ALCARAZ Unavailable Unavailab le Allergies Allergen (clinical drug ingredient) Drug/Non Drug Allergy documented on EMR Reaction Allergy Type Onset Date Status acetaminophen / oxycodone Percocet Unknown Drug Allergy Active codeine Codeine Sulfate Unknown Drug Allergy A ctive Reason For Referral No Information Medications Medication SIG (Take, Route, Frequency, Duration) Notes Start Date End Date Status Amlodipine & Diet Manage Prod 5mg Active Protonix 40mg 1 tablet Orally Once a day for 30 days Active Atorvastatin Calcium 20mg Active Citalopram & Diet Manage Prod 20mg Active Aspir-81 81mg Active Aldactazide 25mg Act leland Edarbi 80mg Active Problems Problem Type SNOMED Code ICD Code Onset Dates Problem Status W/U Status Risk Notes Problem 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 Montano, and a Botox injection in 1999 at [facility]; had repeat achalasia balloon dilation in 10/[address] Rivera at [facility]; had EGD in 03/2012 with finding of minor esophagitis and fluid-filled esophagus--had a Barium swallow in 07/2012 c/w Achalasia anxiety depression stroke 04/2012 Denies MD,DM,Lung disease,renal disease Surgical History Surgery Date(Month/Year) section tonsillectomy
--- OUTSIDE RECORDS SUMMARY | 2024-09-25 13:47 | XMS_ITS | Encounter Summary ---
Author Organization [facility] Address [address] [place] [address] Care Team Providers Care Store Team Member Name Role Phone Jo Ann Gagnon MD Primary Care Prov ider Reason for Visit * Reason Onset Date Comments Hypertension 09/20/2024 Encounter Details Date Type Department Care Team (Late st Contact Info) Description 09/20/2024 Telephone Adult Medicine [address] [phone] Jo Ann Gagnon MD [address] [place] [id number] Hypertension Social History Tobacco Use Types Packs/Day Years Used Date Smoking Tobacco: Never Smokeless Tobacco: Never Alcohol Use Standard Drinks/Week Comments No 0 [...] file Not on file Not on file documented as of this encounter Progress Notes * Myrna Velasquez RN - 09/25/2024 8:23 AM EDT BP 136/89 in office on 09/18 Left vm for pt to return my call. Called to Rosa Isela and advised per provider. States BP is always 150-170 with the therapist. Will visit her tomorrow and advise her of our message. * Jo Ann Gagnon MD - 09/23/2024 5:52 PM EDT No interaction, however she needs to be seen for high BP * Laila Quinn - 09/20/2024 12:45 PM EDT Patient call requires triage: Symptoms patient is presenting: Rosa Isela, physical therapist with [facility] is calling - patientwas seen on Monday 09/[address] Boyd and prescribed Atorvastatin 80mg - daughter went to [facility] pick[facility] pickler this medication and was told DO NOT TAKE THIS, there is a BIG interaction with Hydralazine and Asprin that she is taking and to call her PCP about it - Rosa Isela states patient blood pressure on Wednesday was 171, 180 over 100 and today 170/100 - patient is not having symptoms but did have a stroke and is high risk to have another - Rosa Isela will also need to know parameters How long has patient had these symptoms?: Wednesday and today For ALL patients calling to schedule any appointment (routine, sick visit, follow up, consult, etc.) in the outpatient setting please ask the following questions: Do you have fever of higher than 101, sore throat with difficulty swallowing or severe shortness ofbreath? no If YES to any of these above symptoms, send a message to triage and do not book. Red dot. If no, an audio or video visit should be booked. Have you had close contact with someone with Coronavirus in the last 14 days? no Have you traveled abroad? no Have you traveled recently to another state outside of [place], [place], [place], [place], [place], [place], [place]? no o If yes, did you quarantine for 14 days or have a negative covid test? no If yes to any of the above, patient is not to be scheduled in office until after 14 day quarantine or negative covid test. If pain or injury related was it due to an accident at work or from a motor vehicle accident? If yes, date of accident/Injury: No If yes, gather 3rd libertarian insurance information Third Democrat Information: n/a PCP: Jo Ann Paz MD Payor: [employer] / Plan: [employer] / Product Type: *No Product type* / documented in this encounter Plan of Treatment Upcoming Encounters Date Type Department Care Team (Late st Contact Info) Description 12/21/2024 12:30 PM EDT Office Visit Adult Medicine [address] [phone] Jo Ann Gagnon MD [address] [place] [phone] documented as of this encounter Visit Diagnoses Not on filedocumented in this encounter Care Teams Store Team Member Relationship Specialty Start Date End Date Jo Ann Gagnon MD [address] [place] [id number] PCP - General Internal Medicine 10/07/21 documented as of this encounter
== END 2024-09-25 13:35 | disposition home or self-care (01) ==
LOC: HO.HSM 13:02
PROVIDERS: PCP Internal Medicine; Visit Provider Psychiatry & Neurology Neurology
DX: G43.009 Migraine without aura, not intractable, without status migrainosus (principal); I67.89 Other cerebrovascular disease; F01.A4 Vascular dementia, mild, with anxiety
CPT/HCPCS: 99214

== ENCOUNTER → 2024-09-25 13:01 | Outpatient (BNVA) | payer OTHER, SELFPAY | PROVIDERS: PCP Internal Medicine; Visit Provider Psychiatry & Neurology Neurology | DX: Z09 Encounter for follow-up examination after completed treatment for conditions other than malignant neoplasm (principal); G43.009 Migraine without aura, not intractable, without status migrainosus; I67.89 Other cerebrovascular disease; F01.A4 Vascular dementia, mild, with anxiety | CPT/HCPCS: 99212 ==

== ENCOUNTER 2024-10-13 16:35 | Outpatient (REF) | payer OTHER, SELFPAY ==
--- OUTSIDE RECORDS SUMMARY | 2024-10-13 16:38 | XMS_ITS | Clinical Summary ---
Author Organization [facility] [address] [facility] Address [address] [place] [address] Phone Care Team Providers Care Sticker Operator Name Role Phone Jo Ann Gagnon MD [...] EVERY DAY 90 tablet 1 5 Active aspirin 81 mg EC tablet Take 1 tablet (81 mg total) by mouth 1 (one) time each day. 90 tablet 5 Active metoclopramide (REGLAN) 10 mg tablet Take 1 tablet (10 mg total) by mouth 3 (three) times a day before meals. 5 Active sertraline (ZOLOFT) 25 mg tablet Take 1 tablet (25 mg total) by mouth 1 (one) time each day. 5 Active hydrALAZINE (APRESOLINE) 50 mg tablet Take 1 tablet (50 mg total) by mouth 2 (two) times a day. Active atorvastatin (LIPITOR) 80 mg tablet Take 1 tablet (80 mg total) by mouth 1 (one) time each day. 90 tablet 1 5 Active mirtazapine (REMERON) 15 mg tablet Take 1 tablet (15 mg total) by mouth at bedtime. 90 tablet 5 Active clopidogreL (PLAVIX) 75 mg tablet Take 1 tablet (75 mg total) by mouth 1 (one) time each day. 90 tablet 1 5 Active atorvastatin (LIPITOR) 80 mg tablet TAKE 1 TABLET BY MOUTH EVERY DAY 90 tablet 1 5 09/19/19 25 Discontinu ed(Reorder ) mirtazapine (REMERON) 7.5 mg tablet Take 1 tablet (7.5 mg total) by mouth at bedtime. 90 tablet 1 5 09/19/19 25 Discontinu ed(Therapy completed) hydrALAZINE (APRESOLINE) 100 mg tablet Take 1 tablet (100 mg total) by mouth 3 (three) times a day. 270 tablet 1 5 09/19/19 25 Discontinu ed(Therapy completed) spironolactone- hydroCHLOROthia zide (Aldactazide) 50-50 mg per tablet Take 1 tablet (50 mg total) by mouth 1 (one) time each day. 90 tablet 5 09/19/19 25 Discontinu ed(Therapy completed) mirtazapine (REMERON) 15 mg tablet Take 1 tablet (15 mg total) by mouth at bedtime. 10/07/19 25 Discontinu ed(Reorder ) clopidogreL (PLAVIX) 75 mg tablet Take 1 tablet (75 mg total) by mouth 1 (one) time each day. 10/07/19 25 Discontinu ed(Reorder ) Active Problems Problem Noted Date Diagnosed Date History of CVA (cerebrovascular accident) 2024 Overweight (BMI 25.0-29.9) 06/20/2024 Hypertension 01/15/2024 GERD (gastroesophageal reflux disease) 4 Implantable loop recorder present 10/15/2022 Hyperlipidemia 04/23/2021 Illiteracy 04/23/2021 Stage 4 chronic kidney disease ([facility] V24, [facility] V28) 04/23/2021 Overview (01/15/2024): Follows with nephrology secondary to hypertensive kidney disease Vitamin D deficiency 04/23/2021 Recurrent major depressive disorder ([facility] V24 ) 01/16/2021 Obstructive sleep apnea syndrome 02/05/2020 Overview (01/15/2024): Mild s/p sleep study done at [facility] January 2020 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 Overview (01/15/2024): microhemorrhages brain on MRI; felt secondary to uncontrolled HTN Posttraumatic stress disorder 02/06/2016 Encounters Date Type Department Care Team Description 10/12/2024 Telephone Adult Medicine [address] [phone] Michelle Desouza MA faxed order ([facility] order #[id number], #[id number]) 10/09/2024 Telephone Adult Medicine [address] [phone] Libia Yoon MA VNA 10/04/2024 Telephone Adult Medicine [address] [phone] Jo Ann Gagnon MD call from outside Dr office; medication question 10/04/2024 Telephone Adult Medicine [address] [phone] Jo Ann Gagnon MD HOME HEALTH CERT (09/12/24-11/10/24) 10/04/2024 Telephone Adult Medicine East [address] [phone] Jo Ann Gagnon MD vna 09/29/2024 Telephone Adult [address] [phone] Michelle Desouza MA faxed order ([facility] order #[id number], #[id number]) 09/21/2024 Telephone Adult [address] [phone] Jo Ann Gagnon MD VNA 09/20/2024 Telephone Adult [address] [phone] Jo Ann Gagnon MD Hypertension 09/18/2024 1:30 PM EDT Office Visit Adult [address] [phone] Jo Ann Gagnon MD Hospital discharge follow-up (Primary Dx); Cerebrovascular accident (CVA) due to occlusion of left middle cerebral artery (CMS/HCC V24, CMS/HCC V28); History of CVA (cerebrovascular accident); Iron deficiency anemia, unspecified iron deficiency anemia type 09/14/[address] [phone] Jo Ann Gagnon MD vna (Verbal orders for physical therapy) 09/12/2024 Telephone Adult [address] [phone] Jo Ann Gagnon MD VNA 09/11/2024 [place] Adult [address] [phone] Jo Ann Gagnon MD vna 09/10/2024 Lab Requisition [facility] [address] [place] [address] [place] [address] Anuradha Grimm MD Encounter for other general examination 09/07/2024 Telephone Adult Medicine [address] [phone] Jo Ann Gagnon MD Hospital Follow-up 09/07/2024 Lab Requisition [facility] [address] [place] [phone] Anuradha Grimm MD Encounter for other general examination 09/04/2024 Lab Requisition [facility] [address] [place] [phone] Aye Wilson PA Encounter for other general examination 09/02/2024 Lab Requisition [facility] [address] [place] [phone] Anuradha Grimm MD Encounter for other general examination 09/01/2024 Lab Requisition [facility] [address] [place] [phone] Anuradha Grimm MD Encounter for other general examination 08/30/2024 Lab Requisition [facility] [address] [place] [phone] Anuradha Grimm MD Encounter for other general examination 07/18/2024 9:30 AM EDT Office Visit Adult [address] [phone] Daniela Billingsley PA Elevated blood pressure reading (Primary Dx); Primary hypertension; Pure hypercholesterolemia from Last 3 Months Immunizations Name Administration [...] Recommend manometry testing OTHER SURGICAL HISTORY PROCEDURE: NC XTRNL PT ACTIV ECG TRANSMIS W/R&I </30 DAYS Medical History Medical History Date Comments TIA (transient ischemic attack) Apr 2014, Mar 27 DX:TIA (transient ischemic attack) Hyperlipidemia DX:Hyperlipidemi a GERD (gastroesophageal reflu x disease) DX:GERD (gastroesophageal re flux disease) Illiteracy DX:Illiteracy Esophageal stricture 12/09/2016 DX:Esophage al stricture Microangiopathy ([facility] V24) 12/09/2016 DX :Microangiopathy ([facility]); COMMENT: microhemorrhages brain on MRI; felt secondary [...] dise ase) stage 3, GFR 30-59 ml/min ([facility]) Diverticulosis 11/11/2018 DX:Diverticulosi s Internal hemorrhoids 11/11/2018 DX:Internal hemorrhoids Implantable loop recorder present DX:Implantable loop recorder present Family History Medical History Relation Name Comments No Known Problems Brother 1 No Known Problems Brother 2 No Known Problems Brother 3 No Known Problems Brother 4 No Known Problems Brother 5 Migraines Daughter 1 No Known Problems Daughter 2 x3 Hypertension Father [place]? Stroke? uns ure. in sleep Hypertension Mother [...] Sign Reading Time Taken Comments Blood Pressure 136/89 09/18/2024 1:32 PM EDT Pulse 68 09/18/2024 1:32 PM EDT Temperature 36.4 C (97.6 F) 09/18/2024 1:32 PM EDT Respiratory Rate 12 09/18/2024 1:32 PM EDT Oxygen Saturation 95% 07/18/2024 9:36 AM EDT Inhaled Oxygen Concentration - - Weight 60.8 kg (134 lb) 09/18/2024 1:32 PM EDT Height 157.5 cm (5' 2 ) 09/18/2024 1:32 PM EDT Body Mass Index 24.51 09/18/2024 1:32 PM EDT Plan of Treatment Upcoming Encounters Date Type Department Care Team (Late st Contact Info) Description 10/27/2024 2:30 PM EDT Office Visit Adult Medicine [address] [phone] Jo Ann Gagnon MD [address] [place] [address] 12/21/2024 12:30 PM EDT Office Visit Adult Medicine [address] [phone] Jo Ann Gagnon MD [address] [place] [address] Health Maintenance Due Date Last Done Comments COVID-19 Vaccine (#1) 10/08/1967 DTaP,Tdap,and Td Vaccines (1 - Tdap) 1981 Zoster Vaccines (1 of 2) 1981 Pneumococcal Vaccine: 50+ Years (1 of 1 - PCV) 2012 Depression Screening 03/08/2024 Social Influencers of Health Screening 09/16/2024 09/17/2023 Cervical Cancer Screening: HPV 09/20/2024 09/21/2019 Influenza Vaccine (#1) 2024 01/01/2022, 2012 Breast Cancer Screening 12/28/2024 12/29/19 24, 12/29/2023, 12/25/2022, Additional history exists Hypertension/CHF/CAD Annual BMP Blood Test 09/10/2025 09/10/2024, 09/07/2024, 09/04/2024, Additional history exists Colorectal Cancer Screening: Colonoscopy [...] Procedure Name Priority Date/Time Associated Diagnosis Comments BASIC METABOLIC PANEL Routine 09/10/2024 6:02 AM EDT Encounter for other general examination MAGNESIUM Routine 09/07/2024 5:45 AM EDT Encounter for other general examination COMPREHENSIVE METABOLIC PANEL Routine 09/07/2024 5:45 AM EDT Encounter for other general examination COMPLETE BLOOD COUNT Routine 09/07/2024 5:45 AM EDT Encounter for other general examination MAGNESIUM Routine 09/04/2024 5:48 AM EDT Encounter for other general examination COMPREHENSIVE METABOLIC PANEL Routine 09/04/2024 5:48 AM EDT Encounter for other general examination COMPLETE BLOOD COUNT Routine 09/04/2024 5:48 AM EDT Encounter for other general examination BASIC METABOLIC PANEL Routine 09/02/2024 6:41 AM EDT Encounter for other general examination BASIC METABOLIC PANEL Routine 09/01/2024 4:44 AM EDT Encounter for other general examination CBC WITH AUTO DIFFERENTIAL Routine 08/30/2024 5:06 AM EDT Encounter for other general examination MAGNESIUM Routine 08/30/2024 5:06 AM EDT Encounter for other general examination COMPREHENSIVE METABOLIC PANEL Routine 08/30/2024 5:06 AM EDT Encounter for other general examination CBC AND DIFFERENTIAL Routine 08/30/2024 5:06 AM EDT Encounter for other general examination COMPREHENSIVE METABOLIC PANEL Routine 07/14/2024 9:54 AM EDT Elevated blood pressure reading Primary hypertension HIV 1, 2 ANTIBODY, P24 ANTIGEN WITH REFLEX TO DIFFERENTIATION Routine 06/12/2024 9:00 AM EDT Screening for HIV (human immunodeficiency virus) LIPID PANEL WITH REFLEX TO DIRECT LDL Routine 06/12/2024 9:00 AM EDT Pure hypercholesterolemia SCREENING MAMMOGRAPHY BI 2-VIEW BREAST INC CAD Routine 12/29/2023 3:16 PM EDT Encounter for screening mammogram for malignant neoplasm of breast from Last 3 Months or Most Recently Relevant to Health Maintenance Results * (ABNORMAL) Basic metabolic panel (09/10/2024 6:02 AM EDT) Only the most recent of3 resultswithin the time period is included. Sodium 142 133 - 145 mmol/L LAB CHEMISTRY METHOD 09/10/2024 9:[address] [facility] Potassium 4.8 3.5 - 5.5 mmol/L LAB CHEMISTRY METHOD 09/10/2024 9:[address] [facility] Chloride 111(H) 96 - 110 mmol/L LAB CHEMISTRY METHOD 09/10/2024 9:[address] [facility] CO2 26 21 - 32 mmol/L LAB CHEMISTRY METHOD 09/10/2024 9:[address] [facility] Anion Gap 5 3 - 11 LAB CHEMISTRY METHOD 09/10/2024 9:[address] [facility] Glucose 83 70 - 100 mg/dL LAB CHEMISTRY METHOD 09/10/2024 9:[address] [facility] BUN 46(H) 5 - 25 mg/dL LAB CHEMISTRY METHOD 09/10/2024 9:[address] [facility] Creatinine 1.45(H) 0.50 - 1.10 mg/dL LAB CHEMISTRY METHOD 09/10/2024 9:[address] [facility] eGFR 41(L) >=60 mL/min/1. 73m2 LAB CHEMISTRY METHOD 09/10/2024 9:49 AM EDT [facility] Comment:Calculation based on the Chronic Kidney Disease Epidemiology Collaboration (CKD-EPI) equation refit without adjustment for race. BUN/Creatinine Ratio 31.7 LAB CHEMISTRY METHOD 09/10/2024 9:49 AM T [facility] Calcium 9.7 8.5 - 10.5 mg/dL LAB CHEMISTRY METHOD 09/10/2024 9:49 AM EDT [facility] Blood Venous blood specimen / Unknown Venipuncture / Unknown 09/10/2024 6:02 AM EDT 09/10/2024 9:16 AM EDT us Anuradha Grimm MD LAB BLOOD ORDERABLES Final Resu lt [facility] [address] [place] [address], * (ABNORMAL) Complete blood count (09/07/2024 5:45 AM EDT) Only the most recent of2 resultswithin the time period is included. WBC 6.6 4.8 - 10.8 K/mcL LAB HEMETOLOGY METHOD 09/07/2024 11:[address] [facility] RBC 3.00(L) 3.80 - 4.80 M/mcL LAB HEMETOLOGY METHOD 09/07/2024 11:[address] [facility] Hemoglobin 8.8(L) 11.5 - 16.0 g/dL LAB HEMETOLOGY METHOD 09/07/2024 11:[address] [facility] Hematocrit 28.4(L) 35.0 - 47.0 % LAB HEMETOLOGY METHOD 09/07/2024 11:[address] [facility] MCV 96.3 79.0 - 98.0 FL LAB HEMETOLOGY METHOD 09/07/2024 11:00 AM EDT [facility] MCH 29.8 27.0 - 32.0 pcg LAB HEMETOLOGY METHOD 09/07/2024 11:00 AM EDT [facility] MCHC 31.0(L) 32.0 - 37.0 g/dL LAB HEMETOLOGY METHOD 09/07/2024 11:00 AM EDT [facility] RDW 14.3 11.0 - 15.0 % LAB HEMETOLOGY METHOD 09/07/2024 11:00 AM EDT [facility] Platelets 312 130 - 400 K/mcL LAB HEMETOLOGY METHOD 09/07/2024 11:00 AM EDT [facility] MPV 12.0(H) 7.0 - 11.0 FL LAB HEMETOLOGY METHOD 09/07/2024 11:00 AM EDT [facility] NRBC 0.0 <1.0 % LAB HEMETOLOGY METHOD 09/07/2024 11:00 AM EDT [facility] NRBC Absolute 0.00 <0.10 K/mcL LAB HEMETOLOGY METHOD 09/07/2024 11:00 AM EDT [facility] Blood Venous blood specimen / Unknown Venipuncture / Unknown 09/07/2024 5:45 AM EDT 09/07/2024 10:25 AM EDT us Anuradha Grimm MD LAB BLOOD ORDERABLES Final Resu lt [facility] [address] [place] [address], * Magnesium (09/07/2024 5:45 AM EDT) Only the most recent of3 resultswithin the time period is included. Magnesium 1.9 1.9 - 2.6 mg/dL LAB CHEMISTRY METHOD 09/07/2024 11:56 AM EDT [facility] Blood Venous blood specimen / Unknown Venipuncture / Unknown 09/07/2024 5:45 AM EDT 09/07/2024 10:25 AM EDT us Anuradha Grimm MD LAB BLOOD ORDERABLES Final Resu lt [facility] [address] [place] [address], * (ABNORMAL) Comprehensive metabolic panel (09/07/2024 5:45 AM EDT) Only the most recent of4 resultswithin the time period is included. Sodium 138 133 - 145 mmol/L LAB CHEMISTRY METHOD 09/07/2024 11:[address] [facility] Potassium 4.8 3.5 - 5.5 mmol/L LAB CHEMISTRY METHOD 09/07/2024 11:[address] [facility] Chloride 109 96 - 110 mmol/L LAB CHEMISTRY METHOD 09/07/2024 11:[address] [facility] CO2 24 21 - 32 mmol/L LAB CHEMISTRY METHOD 09/07/2024 11:[address] [facility] Anion Gap 5 3 - 11 LAB CHEMISTRY METHOD 09/07/2024 11:[address] [facility] Glucose 65(L) 70 - 100 mg/dL LAB CHEMISTRY METHOD 09/07/2024 11:[address] [facility] BUN 38(H) 5 - 25 mg/dL LAB CHEMISTRY METHOD 09/07/2024 11:[address] [facility] Creatinine 1.17(H) 0.50 - 1.10 mg/dL LAB CHEMISTRY METHOD 09/07/2024 11:[address] [facility] eGFR 53(L) >=60 mL/min/1. 73m2 LAB CHEMISTRY METHOD 09/07/2024 11:[address] [facility] Comment:Calculation based on the Chronic Kidney Disease Epidemiology Collaboration (CKD-EPI) equation refit without adjustment for race. BUN/Creatinine Ratio 32.5 LAB CHEMISTRY METHOD 09/07/2024 11:[address] [facility] Calcium 9.5 8.5 - 10.5 mg/dL LAB CHEMISTRY METHOD 09/07/2024 11:[address] [facility] AST (SGOT) 18 10 - 42 unit/L LAB CHEMISTRY METHOD 09/07/2024 11:[address] [facility] ALT (SGPT) 37 10 - 60 unit/L LAB CHEMISTRY METHOD 09/07/2024 11:[address] [facility] Alkaline Phosphatase 84 42 - 121 unit/L LAB CHEMISTRY METHOD 09/07/2024 11:[address] [facility] Total Protein 6.7 6.0 - 8.0 g/dL LAB CHEMISTRY METHOD 09/07/2024 11:[address] [facility] Albumin 3.1(L) 3.2 - 5.0 g/dL LAB CHEMISTRY METHOD 09/07/2024 11:[address] [facility] Total Bilirubin 0.2 0.0 - 1.4 mg/dL LAB CHEMISTRY METHOD 09/07/2024 11:[address] [facility] Blood Venous blood specimen / Unknown Venipuncture / Unknown 09/07/2024 5:45 AM EDT 09/07/2024 10:25 AM EDT us Anuradha Grimm MD LAB BLOOD ORDERABLES Final Resu lt [facility] [address] [place] [address], * (ABNORMAL) CBC auto differential (08/30/2024 5:06 AM EDT) WBC 8.7 4.8 - 10.8 K/mcL LAB HEMETOLOGY METHOD 08/30/2024 10:[address] [facility] RBC 3.40(L) 3.80 - 4.80 M/mcL LAB HEMETOLOGY METHOD 08/30/2024 10:[address] [facility] Hemoglobin 10.0(L) 11.5 - 16.0 g/dL LAB HEMETOLOGY METHOD 08/30/2024 10:[address] [facility] Hematocrit 32.0(L) 35.0 - 47.0 % LAB HEMETOLOGY METHOD 08/30/2024 10:[address] [facility] MCV 95.5 79.0 - 98.0 FL LAB HEMETOLOGY METHOD 08/30/2024 10:[address] [facility] MCH 29.9 27.0 - 32.0 pcg LAB HEMETOLOGY METHOD 08/30/2024 10:[address] [facility] MCHC 31.3(L) 32.0 - 37.0 g/dL LAB HEMETOLOGY METHOD 08/30/2024 10:[address] [facility] RDW 14.4 11.0 - 15.0 % LAB HEMETOLOGY METHOD 08/30/2024 10:[address] [facility] Platelets 322 130 - 400 K/mcL LAB HEMETOLOGY METHOD 08/30/2024 10:[address] [facility] MPV 12.0(H) 7.0 - 11.0 FL LAB HEMETOLOGY METHOD 08/30/2024 10:[address] [facility] NRBC 0.0 <1.0 % LAB HEMETOLOGY METHOD 08/30/2024 10:[address] [facility] NRBC Absolute 0.00 <0.10 K/mcL LAB HEMETOLOGY METHOD 08/30/2024 10:[address] [facility] Neutrophils Relative 72.4 % LAB HEMETOLOGY METHOD 08/30/2024 10:[address] [facility] Lymphocytes Relative 19.1 % LAB HEMETOLOGY METHOD 08/30/2024 10:[address] [facility] Monocytes Relative 6.5 % LAB HEMETOLOGY METHOD 08/30/2024 10:[address] [facility] Eosinophils Relative 0.6 % LAB HEMETOLOGY METHOD 08/30/2024 10:[address] [facility] Basophils Relative 0.6 % LAB HEMETOLOGY METHOD 08/30/2024 10:[address] [facility] Immature Granulocytes Relative 0.8 % LAB HEMETOLOGY METHOD 08/30/2024 10:[address] [facility] Neutrophils Absolute 6.28 1.50 - 7.00 K/mcL LAB HEMETOLOGY METHOD 08/30/2024 10:[address] [facility] Lymphocytes Absolute 1.65 1.00 - 5.00 K/mcL LAB HEMETOLOGY METHOD 08/30/2024 10:[address] [facility] Monocytes Absolute 0.56 0.20 - 1.00 K/mcL LAB HEMETOLOGY METHOD 08/30/2024 10:[address] [facility] Eosinophils Absolute 0.05 0.00 - 0.50 K/mcL LAB HEMETOLOGY METHOD 08/30/2024 10:[address] [facility] Basophils Absolute 0.05 0.00 - 0.20 K/mcL LAB HEMETOLOGY METHOD 08/30/2024 10:[address] [facility] Immature Granulocytes Absolute 0.07(H) 0.00 - 0.03 K/mcL LAB HEMETOLOGY METHOD 08/30/2024 10:[address] [facility] Blood Venous blood specimen / Unknown Venipuncture / Unknown 08/30/2024 5:06 AM EDT 08/30/2024 10:13 AM EDT Anuradha Grimm MD LAB BLOOD ORDERABLES Final Resu lt Performing Organization Address City/[facility]/ZIP Co de Phone Number [facility] [address] [place] [address], [place] [phone] * HIV 1,2 antibody, p24 antigen with reflex to differentiation (06/12/2024 9:00 AM EDT) HIV Combo AB/AG Negative Negative LAB CHEMISTRY METHOD 06/12/2024 3:31 PM EDT [facility] Blood Venous blood specimen / Unknown Venipuncture / Unknown 06/12/2024 9:00 AM EDT 06/12/2024 9:00 AM EDT Narrative [facility] - 06/12/2024 3:31 PM EDT This assay is a 4th generation assay allowing for earlier detection of HIV infection by detecting the presence of the HIV-1 p24 antigen as well as the traditional antibodies to HIV type 1 (including group O) and type 2. Use of a 4th generation assay is the current CDC recommendation for HIV screening. Blanca DUNCAN LAB BLOOD ORDERABLES Final Resul t Performing Organization Address [facility] de Phone Number [facility] [address] [place] [address], [place] [phone] * (ABNORMAL) Lipid panel with reflex to direct LDL (06/12/2024 9:00 AM EDT) Cholesterol 114 0 - 200 mg/dL LAB CHEMISTRY METHOD 06/12/2024 2:09 PM EDT [facility] Triglycerides 133 0 - 150 mg/dL LAB CHEMISTRY METHOD 06/12/2024 2:09 PM EDT [facility] HDL 39(L) >=40 mg/dL LAB CHEMISTRY METHOD 06/12/2024 2:09 PM EDT [facility] LDL Calculated 48 0 - 100 mg/dL LAB CHEMISTRY METHOD 06/12/2024 2:09 PM EDT [facility] VLDL Cholesterol Blue 26.6 mg/dL LAB CHEMISTRY METHOD 06/12/2024 2:09 PM EDT [facility] Non HDL Chol. (LDL+VLDL) 75 <145 mg/dL LAB CHEMISTRY METHOD 06/12/2024 2:09 PM EDT [facility] Chol/HDL Ratio 2.9 0.0 - 4.4 LAB CHEMISTRY METHOD 06/12/2024 2:09 PM EDT [facility] Blood Venous blood specimen / Unknown Venipuncture / Unknown 06/12/2024 9:00 AM EDT 06/12/2024 9:00 AM EDT us Blanca Rommel PA LAB BLOOD ORDERABLES Final Resul t [facility] [address] [place] [address], * SCREENING MAMMOGRAPHY BI 2-VIEW BREAST INC CAD (12/29/2023 3:16 PM EDT) Anatomical Region Laterality Modality Radiographic Yrann ging 12/25/2022 3:36 PM EDT Narrative 12/30/2023 [...] MLO projections, left breast exaggerated CC. Left breast loop device is present. CAD was used to evaluate this mammogram. Findings: Density: There are scattered areas of fibroglandular density-B RIGHT: No suspicious masses, groups of microcalcification or areas of architectural distortion identified. Stable typically benign parenchymal asymmetries LEFT: No suspicious masses, groups of microcalcifications or areas of architectural distortion identified. Stable typically benign parenchymal asymmetries. Artifact from a loop device medially. IMPRESSION: : 1. No mammographic evidence of malignancy. BI-RADS Category 2 benign findings Recommendation: Routine annual screening mammography is recommended [address] [address] Procedure Note Hank Lundberg MD - 01/08/2024 [...] Recommendation: Routine annual screening mammography is recommended [address] [address] Daniela DUNCAN IMG XR PROCEDURES Final Result from Last 3 Months or Most Recently Relevant to Health Maintenance Insurance HEALTH PLAN Advance Directives Documents on File Type Date Recorded Patient Tree Feller Expl anation Health Care Decision (hx) 01/11/2022 LAXMI KAHN DIRECTIVE Care Teams Sticker Operator Relationship Specialty Start Date End Date Jo Ann Gagnon MD [address] [place] [id number] PCP - General Internal Medicine 10/07/21
--- OUTSIDE RECORDS SUMMARY | 2024-10-13 16:38 | XMS_ITS | Patient Health Record ---
Author Organization [facility] Address [address] [place] [address] Care Team Providers Care Buyer Name Role Phone Rafy (RETIRED) Ghassan RILEY Primary Care Provide r Unavailable Link Raya Unavailable [phone] JOSEPH ALCARAZ Unavailable Unavailab le Allergies Allergen [...] Insured Coverage Start Date Coverage End Date [facility] [employer] [facility] [address] [address] [place], [place] [phone] [id number] MCGARRY, MAE Self - patient is the insured Medical (General) History Medical History History ICD Code Hyperlipidemia hypertension Achalasia-dignosed in early at [facility]-had achalasia balloon [place] [address] Montano, and a Botox injection in 1999 at [facility]; had repeat achalasia balloon dilation in 10/[address] Rivera at [facility]; had EGD in 03/2012 with finding of minor esophagitis and fluid-filled esophagus--had a Barium swallow in 07/2012 c/w Achalasia anxiety depression stroke 04/2012 Denies IA,DM,Lung disease,renal disease Surgical History Surgery Date(Month/Year) section tonsillectomy
--- OUTSIDE RECORDS SUMMARY | 2024-10-13 16:38 | XMS_ITS | Clinical Summary ---
Author Organization [facility] Address [address] [place] [address] Phone Care Team Providers Care Skiving Machine Operator Name Role Phone Oralia Helton MD Primary Care Provider [phone] Allergies Active Allergy Reactions Criticality Noted Date [...] (04/23/2021): Mild s/p sleep study done at [facility] January 2020 History of cerebrovascular accident [...] to complete this topic Insurance Care Teams Skiving Machine Operator Relationship Specialty Start Date End Date Oralia Helton MD [address] [place] [address] PCP - General 03/18/20
--- OUTSIDE RECORDS SUMMARY | 2024-10-13 16:38 | XMS_ITS ---
Author Name [facility] Organization Unknown Care Team Organization Name Specialty Phone Email Start Date End Da te [facility] Jo Ann Martinez Primary Care 05/13/2022 10/25/2023 [facility] Barbara Díaz Primary Care 01/13/20222023
[2024-10-13 18:57] LABS: Hematocrit 33.0 % (37.0-47.0); Hemoglobin 10.8 g/dl (12.0-16.0); Mean Corpuscular HGB Conc 32.7 g/dl (31.0-35.0); Mean Corpuscular Hemoglobin 29.0 pg (27.0-33.0); Mean Corpuscular Volume 88.7 fL (80.0-98.0); NRBC Abs Auto 0.000 X10*3/uL (0.0-0.012); NRBC Pct Auto 0.0 /100WBC (0.0-0.2); Platelet Count 429 X10*3/uL (160-400); Red Blood Count 3.72 X10*6/uL (4.20-5.50); White Blood Count 9.1 X10*3/uL (4.8-10.8)
[2024-10-13 19:08] LABS: Anion Gap 15 (12-20); Blood Urea Nitrogen 28 mg/dL (9-16); Calcium 9.7 mg/dL (8.4-10.2); Carbon Dioxide 25 mmol/L (22-29); Chloride 106 mmol/L (96-108); Estimated Glomerular Filt Rate 42; Potassium 3.4 mmol/L (3.3-5.1); Sodium 143 mmol/L (135-145)
== END 2024-10-13 16:36 | disposition home or self-care (01) ==
LOC: HO.LAB 16:35
PROVIDERS: PCP Internal Medicine; Visit Provider Internal Medicine Hypertension Specialist
DX: I1A.0 Resistant hypertension (principal); N18.31 Chronic kidney disease, stage 3a
CPT/HCPCS: 36415; 80048; 85027

== ENCOUNTER 2024-10-17 11:57 | Outpatient (AMB) | payer OTHER, SELFPAY ==
--- NOTE | 2024-10-17 11:59 | HO.NEPHOV ---
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 Required: No Accompanied by: Grand Child Allergies oxycodone (From PERCOCET) Allergy (Intermediate, Verified 10/17/24 12:00) RASH codeine (Codeine) Allergy (Unknown, Verified 10/17/24 12:00) SHORTNESS OF BREATH morphine (Morphine) Adverse Reaction (Unknown, Verified 10/17/24 12:00) CHEST PAIN Percocet Allergy (Unknown, Uncoded 12/30/10 00:00) anxiety Vicodin Allergy (Unknown, Uncoded 12/30/10 00:00) rash Medication List - Last Reconciled 10/17/24 by Tyrone Edmonds MD acetaminophen mg PO PRN aspirin 81 mg PO DAILY atenolol 25 mg PO DAILY atorvastatin 80 mg PO DAILY clopidogrel 75 mg PO DAILY metoclopramide HCl 5 mg PO TID PRN mirtazapine 15 mg PO BEDTIME HPI Comments Details: 63-year-old woman with resistant hypertension. She has significant vascular disease in the form of splenic artery aneurysm, thoracic artery aneurysm and history of hemorrhagic stroke in the past. She has had difficult to control blood pressure and she has been on several medications. She had a CT angiogram of renal arteries which did not reveal any renal artery stenosis in 2019. Plasma catecholamines were normal. Serum aldosterone was 18 with a plasma renin activity of 0.18. CT of the adrenals did not reveal any significant pathology. Again 6 background she has significant migraine and she is had a recent visit to the emergency room. 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 05/10/23;Did not start aldactazide yet; c/o 2 episodes of vertigo 07/13/24 Here for follow up after almost a year ;Accompanied by family ;Meds reviewed ;Not on Amlodipine anymore ;On Aldactazide 50/50 daily ( was on 25/25 daily) ;Recently had a fall. No lightheadedness. Says she tripped over pavement . 08/14/24 63-year-old female presenting with a primary concern of essential hypertension. Recently, she has experienced significant fluctuations in her blood pressure, with elevated readings causing concern. About two weeks ago, she sought emergency care due to severe hypertension accompanied by unilateral numbness and weakness, reminiscent of past stroke symptoms. This led to a hospital admission for observation, where she underwent CT scans and blood tests. Throughout this event, no changes were made to her hypertension management pharmacotherapy. Past medical history is significant for chronic kidney disease, currently assessed at stage 3, and there is a history of previous stroke. The patient reports symptoms prevalent during physical exertion, like mopping, including pain and numbness in her right arm and leg. Despite extensive evaluation, she has not encountered fresh interventions following prior neurological review. Attention is being given to maintaining blood pressure at optimal levels to prevent further decline in renal function and avoid exacerbating symptoms of weakness and fatigue associated with her comorbid conditions. 10/17/24 Another CVA on August 20 Went to rehab Off all antihypertensives except Atenolol 25 mg PFSH Medical History (Updated 09/25/24 @ 13:26 by Shantell Arellano MD) Cerebral microvascular disease Anxiety Acute CVA (cerebrovascular accident) Migraines HTN (hypertension) Surgical History H/O section Family History Father Hypertension Diabetes Mother Heart murmur Social History Alcohol intake: never Patient Tobacco Use Status: Never used Tobacco Physical Exam Vital Signs: Last Vital Signs BP 158/96 H 10/17/24 12:00 Comfortable Neck supple no JVD. Lungs entry equal no rales. Heart S1-S2 heard no gallop or rub. Abdomen soft nontender. Neuro alert awake oriented. No asterixis. Weakness+ Extremities no edema. Office Procedures 24 B/P Monitor Interpretation Details: Daytime average blood pressure was 152/95 Nighttime average blood pressure was 163/104 24 hour average was 154/97 Overall blood pressure is suboptimally controlled. . No nocturnal dipping. No significant white coat effect. CPT: 61169 24 Hour Blood Pressure Monitor Reading Procedure code (CPT) selection complete Results Reviewed Nephrology Results: Hgb, (12.0-16.0) 10.8 g/dl L 10/13/24 WBC, (4.8-10.8) 9.1 X10*3/uL 10/13/24 Plt Count, (160-400) 429 X10*3/uL H 10/13/24 Sodium, (135-145) 143 mmol/L 10/13/24 Potassium, (3.3-5.1) 3.4 mmol/L Δ 10/13/24 Chloride, (96-108) 106 mmol/L 10/13/24 Carbon Dioxide, (22-29) 25 mmol/L 10/13/24 BUN, (9-16) 28 mg/dL H 10/13/24 Creatinine, (0.5-1.4) 1.30 mg/dL 10/13/24 Calcium, (8.4-10.2) 9.7 mg/dL 10/13/24 Assessment & Plan Assessment & Plan (1) HTN (hypertension): Code(s): I10 - Essential (primary) hypertension Category: Medical Qualifiers: Hypertension type: resistant hypertension Qualified Code(s): I1A.0 - Resistant hypertension (2) CKD (chronic kidney disease) stage 3, GFR 30-59 ml/min: Code(s): N18.30 - Chronic kidney disease, stage 3 unspecified Category: Medical Qualifiers: Chronic kidney disease stage 3 subtype: stage 3a (GFR 45-59) Qualified Code(s): N18.31 - Chronic kidney disease, stage 3a (3) Migraines: Code(s): G43.909 - Migraine, unspecified, not intractable, without status migrainosus Category: Medical Qualifiers: Intractability: not intractable Migraine type: migraine (< 15 days per month) without aura Status migrainosus presence: without status migrainosus Qualified Code(s): G43.009 - Migraine without aura, not intractable, without status migrainosus Plan . Middle-aged woman with resistant hypertension setting of vascular disease. 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 CKD 3 Renal function stable at baseline with a cr of 1.4 and eGFR of 40 ml/mt Blood pressure is suboptimal Add amlodipine 5 mg q.p.m. Encouraged her to stay on a low-sodium diet. Orders: Orders AMB 24 HR B/P Monitor INTERPRETATION Today I10 - Essential (primary) hypertension Medications: New amlodipine 5 mg PO .every evening 90 tabs 1RF Coding Level of Care Code Est Pt Level 4 (19909) Diagnoses Resistant hypertension I1A.0 Hypertension type: resistant hypertension Stage 3a chronic kidney disease N18.31 Chronic kidney disease stage 3 subtype: stage 3a (GFR 45-59) Migraine without aura and without status migrainosus, not intractable G43.009 Intractability: not intractable Migraine type: migraine (< 15 days per month) without aura Status migrainosus presence: without status migrainosus CPT Codes - CPT: 62078 24 Hour Blood Pressure Monitor Reading ([id number])
[2024-10-17 12:00] VITALS: BP 158/96
== END 2024-10-17 12:17 | disposition home or self-care (01) ==
LOC: HO.HKA 11:58
PROVIDERS: PCP Internal Medicine; Visit Provider Internal Medicine Hypertension Specialist
DX: I1A.0 Resistant hypertension (principal); N18.31 Chronic kidney disease, stage 3a; G43.009 Migraine without aura, not intractable, without status migrainosus
CPT/HCPCS: 93790; 99214

== ENCOUNTER → 2024-10-17 11:57 | Outpatient (BNVA) | payer OTHER, SELFPAY | PROVIDERS: PCP Internal Medicine; Visit Provider Internal Medicine Hypertension Specialist | DX: I1A.0 Resistant hypertension (principal); N18.31 Chronic kidney disease, stage 3a; G43.909 Migraine, unspecified, not intractable, without status migrainosus | CPT/HCPCS: 93786; 93788; 99212 ==

== ENCOUNTER 2024-11-23 13:32 | Outpatient (AMB) | payer OTHER, SELFPAY ==
--- NOTE | 2024-11-23 13:40 | HO.NEPHOV ---
Vital Signs 11/23/24 13:41 Height 5 ft 2 in Weight 132 lb BMI 24.1 BP 106/64 Blood Pressure Location Rt brachial Position Sitting Pulse 97 Pulse Source Pulse Oximeter Pulse Oximetry (%) 97 Oxygen Delivery Method Room Air Intake Visit Reasons: 1mon f/u-Conf Assignment Manager Required: No Accompanied by: Grand Child Allergies oxycodone (From PERCOCET) Allergy (Intermediate, Verified 11/23/24 13:44) RASH codeine (Codeine) Allergy (Unknown, Verified 11/23/24 13:44) SHORTNESS OF BREATH morphine (Morphine) Adverse Reaction (Unknown, Verified 11/23/24 13:44) CHEST PAIN Percocet Allergy (Unknown, Uncoded 12/30/10 00:00) anxiety Vicodin Allergy (Unknown, Uncoded 12/30/10 00:00) rash Medication List - Last Reconciled 11/23/24 by Tyrone Edmonds MD acetaminophen mg PO Q6H PRN amlodipine 10 mg PO DAILY aspirin 81 mg PO BID atorvastatin 80 mg PO DAILY hydralazine 100 mg PO TID mirtazapine 15 mg PO BEDTIME HPI Comments Details: 63-year-old woman with resistant hypertension. She has significant vascular disease in the form of splenic artery aneurysm, thoracic artery aneurysm and history of hemorrhagic stroke in the past. She has had difficult to control blood pressure and she has been on several medications. She had a CT angiogram of renal arteries which did not reveal any renal artery stenosis in 2019. Plasma catecholamines were normal. Serum aldosterone was 18 with a plasma renin activity of 0.18. CT of the adrenals did not reveal any significant pathology. Again 6 background she has significant migraine and she is had a recent visit to the emergency room. 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 05/10/23;Did not start aldactazide yet; c/o 2 episodes of vertigo 07/13/24 Here for follow up after almost a year ;Accompanied by family ;Meds reviewed ;Not on Amlodipine anymore ;On Aldactazide 50/50 daily ( was on 25/25 daily) ;Recently had a fall. No lightheadedness. Says she tripped over pavement . 08/14/24 63-year-old female presenting with a primary concern of essential hypertension. Recently, she has experienced significant fluctuations in her blood pressure, with elevated readings causing concern. About two weeks ago, she sought emergency care due to severe hypertension accompanied by unilateral numbness and weakness, reminiscent of past stroke symptoms. This led to a hospital admission for observation, where she underwent CT scans and blood tests. Throughout this event, no changes were made to her hypertension management pharmacotherapy. Past medical history is significant for chronic kidney disease, currently assessed at stage 3, and there is a history of previous stroke. The patient reports symptoms prevalent during physical exertion, like mopping, including pain and numbness in her right arm and leg. Despite extensive evaluation, she has not encountered fresh interventions following prior neurological review. Attention is being given to maintaining blood pressure at optimal levels to prevent further decline in renal function and avoid exacerbating symptoms of weakness and fatigue associated with her comorbid conditions. 10/17/24 Another CVA on August 20 Went to rehab Off all antihypertensives except Atenolol 25 mg 11/23/24 The patient is a 64-year-old female presenting with resistant hypertension. She adheres to her medication regimen without issues and denies breathing difficulties, nausea, or vomiting. Occasional headaches occur, and her blood pressure was low today. Her amlodipine dosage was increased to 10 mg by her primary care physician. Laboratory results from October were stable, with no medication changes planned. Medications: - Amlodipine 10 mg for hypertension Diagnostic Results: - Labs: Stable results from October [facility] Medical History (Updated 09/25/24 @ 13:26 by Shantell Arellano MD) Cerebral microvascular disease Anxiety Acute CVA (cerebrovascular accident) Migraines HTN (hypertension) Surgical History (Updated 11/23/24 @ 13:43 by KATIE Toribio) History of cataract surgery (~11/2024) H/O section Family History Father Hypertension Diabetes Mother Heart murmur Social History Alcohol intake: never Patient Tobacco Use Status: Never used Tobacco Physical Exam Vital Signs: Last Vital Signs Pulse 97 11/23/24 13:41 BP 106/64 11/23/24 13:41 Pulse Ox 97 11/23/24 13:41 Oxygen Delivery Method Room Air 11/23/24 13:41 BMI result Body Mass Index 24.1 Results Reviewed Nephrology Results: Hgb, (12.0-16.0) 10.8 g/dl L 10/13/24 WBC, (4.8-10.8) 9.1 X10*3/uL 10/13/24 Plt Count, (160-400) 429 X10*3/uL H 10/13/24 Sodium, (135-145) 143 mmol/L 10/13/24 Potassium, (3.3-5.1) 3.4 mmol/L Δ 10/13/24 Chloride, (96-108) 106 mmol/L 10/13/24 Carbon Dioxide, (22-29) 25 mmol/L 10/13/24 BUN, (9-16) 28 mg/dL H 10/13/24 Creatinine, (0.5-1.4) 1.30 mg/dL 10/13/24 Calcium, (8.4-10.2) 9.7 mg/dL 10/13/24 Assessment & Plan Assessment & Plan (1) HTN (hypertension): Code(s): I10 - Essential (primary) hypertension Category: Medical Qualifiers: Hypertension type: resistant hypertension Qualified Code(s): I1A.0 - Resistant hypertension (2) CKD (chronic kidney disease) stage 3, GFR 30-59 ml/min: Code(s): N18.30 - Chronic kidney disease, stage 3 unspecified Category: Medical Qualifiers: Chronic kidney disease stage 3 subtype: stage 3a (GFR 45-59) Qualified Code(s): N18.31 - Chronic kidney disease, stage 3a (3) Migraines: Code(s): G43.909 - Migraine, unspecified, not intractable, without status migrainosus Category: Medical Qualifiers: Migraine type: migraine (< 15 days per month) without aura Status migrainosus presence: without status migrainosus Intractability: not intractable Qualified Code(s): G43.009 - Migraine without aura, not intractable, without status migrainosus Plan . Middle-aged woman with resistant hypertension setting of vascular disease. 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 CKD 3 Renal function stable at baseline with a cr of 1.4 and eGFR of 40 ml/mt Blood pressure is better controlled Keep amlodipine 10 mg q.p.m. Encouraged her to stay on a low-sodium diet. Orders: Orders Basic Metabolic Panel 3 Months I1A.0 - Resistant hypertension, N18.31 - Chronic kidney disease, stage 3a Coding Level of Care Code Est Pt Level 4 (21484) Diagnoses Resistant hypertension I1A.0 Hypertension type: resistant hypertension Stage 3a chronic kidney disease N18.31 Chronic kidney disease stage 3 subtype: stage 3a (GFR 45-59) Migraine without aura and without status migrainosus, not intractable G43.009 Migraine type: migraine (< 15 days per month) without aura Status migrainosus presence: without status migrainosus Intractability: not intractable
[2024-11-23 13:41] VITALS: BP 106/64; PULSE 97; O2SAT 97; BMI 24.1
--- OUTSIDE RECORDS SUMMARY | 2024-11-23 15:31 | XMS_ITS | Encounter Summary ---
Author Organization [facility] Address [address] [place] [address] Care Team Providers Care Career Coach Name Role Phone Jo Ann Gagnon MD Primary Care Prov ider Reason for Visit * Reason Onset Date Comments Medication Problem 11/10/2024 Encounter Details Date Type Department Care Team ([facility] st Contact Info) Description 11/10/2024 Telephone Adult Medicine [facility] [address] [place], [place] [phone] Jo Ann Gagnon MD [address] [place], [place] Social History Tobacco Use Types Packs/Day Years Used Date Smoking Tobacco: Never Smokeless Tobacco: Never Alcohol Use Standard Drinks/Week Comments No 0 (1 standard drink = 0.6 oz pur e alcohol) Housing Instability Answer Date Recorde d Are you worried that in the next 2 months you may not have stable housing? No 10/27/2024 Food Access & Nutrition Answer Date Rec orded Do you have access to a vari ety of food including fruits and vegetables? Yes 10/27/2024 Health Literacy Answer Date Recorded How often do you need to hav e someone help you when you read instructions, pamphlets, or other written material from your doctor or pharmacy? Never 10/27/2024 Caregiver: How often do you need to have someone help you when you read instructions, pamphlets, or other written material from your doctor or pharmacy? Not on file 10/27/2024 Financial Risk Answer Date Recorded How hard is it for you to pa y for the very basics like food, housing, medical care, and air conditioning / heating? Not very hard 10/27/2024 Transportation Answer Date Recorded Has the lack of transportati on kept you from meetings, work, or from getting things needed for daily living? No Has the lack of transportati on kept you from medical appointments or from getting medications? No 10/27/2024 Social Isolation Answer Date Recorded How often do you feel lonely or isolated from th ose around you? Never 10/27/2024 Food Risk Answer Date Recorded Within the past 12 months we worried whether our food would run out before we got money to buy more. Never true 10/27/2024 Within the past 12 months th e food we bought just didn't last and we didn't have money to get more. Never true 10/27/2024 Dependent Care Answer Date Recorded Do you need help finding or paying for care for your loved ones. For example, children's court magistrate or elderly care for an older adult? No 10/27/2024 Education Answer Date Recorded Do you think completing more education or training, like finishing a GED, going to college, or learning a trade, would be helpful for you? No 10/27/2024 Employment and Income Answer Date Recor ded During the last four weeks, have you been actively looking for work? No 10/27/2024 Living Situation Answer Date Recorded What is your living situation? 0 10/27/2024 Comments No Sex and Gender Information Value Date Recorded Sex Assigned at Not on file Legal Sex Female 5:07 AM EST Gender Identity Not on file Sexual Orientation Not on file Occupation Industry Job Start Date Job End Date disability Not on file Not on file Not on file documented as of this encounter Progress Notes * Zain Izquierdodor - 11/10/2024 1:57 PM EDT Saw neurologist today was told she can get off plavix and start taking two baby aspirins , states that patient was seen by pre op provider at [address], states that she was told she doesn't have to change medication regime , would like to speak to provider or nurse to discuss what should be done Patient will contact pre op approving provider office to get advice on what to do and if they are suggested to ask pcp will call back documented in this encounter Plan of Treatment Upcoming Encounters Date Type Department Care Team (Late st Contact Info) Description 12/04/2024 12:30 PM EDT Office Visit Adult Medicine [address] [phone] Daniela Billingsley PA [address] [place] [address] 12/21/2024 12:30 PM EDT Office Visit [address] [phone] Jo Ann Gagnon MD [address] [place] [address] documented as of this encounter Visit Diagnoses Not on filedocumented in this encounter Additional Health Concerns Assessment Noted Time PHQ-9 Depression Total Score: 0 10/28/19 25 2:18 PM EDT documented as of this encounter Care Teams Career Coach Relationship Specialty Start Date End Date Jo Ann Gagnon MD [address] [place] [address] PCP - General Internal Medicine 10/07/21 documented as of this encounter
--- OUTSIDE RECORDS SUMMARY | 2024-11-23 15:31 | XMS_ITS | Encounter Summary ---
Author Organization [facility] Address [address] [place] [address] Care Team Providers Care Biomedical Repair Technician Name Role Phone Jo Ann Gagnon MD Primary Care Prov ider Encounter Details Date Type Department Care Team (Late Contact Info) Description 09/02/2024 Lab Requisition [facility] [address] [facility] [place] [address] Anuradha Grimm MD [address] [place] [id number] Encounter for other general examination Social History Tobacco Use Types Packs/Day Years [...] on file documented as of this encounter Plan of Treatment Upcoming Encounters Date Type Department Care Team (Late Contact Info) Description 12/04/2024 12:30 PM EDT Office Visit Adult Medicine [address] [phone] Daniela Billingsley PA [address] [place], [place] 12/21/2024 12:30 PM EDT Office Visit Adult Medicine [facility] [address] [place] [address] Jo Ann Gagnon MD [address] [place] [address] documented as of this encounter Procedures Procedure Name Priority Date/Time Associated Diagnosis Comments BASIC METABOLIC PANEL Routine 09/02/2024 6:41 AM EDT Encounter for other general examination documented in this encounter Results * (ABNORMAL) Basic metabolic panel (09/02/2024 6:41 AM EDT) Sodium 141 133 - 145 mmol/L LAB CHEMISTRY METHOD 09/02/2024 11:37 AM [facility] Potassium 4.2 3.5 - 5.5 mmol/L LAB CHEMISTRY METHOD 09/02/2024 11:37 AM [facility] Chloride 111(H) 96 - 110 mmol/L LAB CHEMISTRY METHOD 09/02/2024 11:37 AM [facility] CO2 23 21 - 32 mmol/L LAB CHEMISTRY METHOD 09/02/2024 11:37 AM [facility] Anion Gap 7 3 - 11 LAB CHEMISTRY METHOD 09/02/2024 11:37 AM [facility] Glucose 75 70 - 100 mg/dL LAB CHEMISTRY METHOD 09/02/2024 11:37 AM [facility] BUN 37(H) 5 - 25 mg/dL LAB CHEMISTRY METHOD 09/02/2024 11:37 AM [facility] Creatinine 1.78(H) 0.50 - 1.10 mg/dL LAB CHEMISTRY METHOD 09/02/2024 11:37 AM [facility] eGFR 32(L) >=60 mL/min/1. 73m2 LAB CHEMISTRY METHOD 09/02/2024 11:37 AM [facility] Comment:Calculation based on the Chronic Kidney Disease Epidemiology Collaboration (CKD-EPI) equation refit without adjustment for race. BUN/Creatinine Ratio 20.8 LAB CHEMISTRY METHOD 09/02/2024 11:37 AM EDT [facility] Calcium 9.2 8.5 - 10.5 mg/dL LAB CHEMISTRY METHOD 09/02/2024 11:37 AM EDT [facility] Blood Venous blood specimen / Unknown Venipuncture / Unknown 09/02/2024 6:41 AM EDT 09/02/2024 10:54 AM EDT us Anuradha Grimm MD LAB BLOOD ORDERABLES Final Resu lt [facility] [address] [place] [address], documented in this encounter Visit Diagnoses Diagnosis Encounter for other general examination documented in this encounter Care Teams Biomedical Repair Technician Relationship Specialty Start Date End Date Jo Ann Gagnon MD [address] [place] [phone] PCP - General Internal Medicine 10/07/21 documented as of this encounter
--- OUTSIDE RECORDS SUMMARY | 2024-11-23 15:31 | XMS_ITS | Clinical Summary ---
Author Organization [facility] [address] [facility] Address [address] [place] [address] Phone Care Team Providers Care Online Merchandising Specialist Name Role Phone Jo Ann Gagnon MD Primary Care Prov ider Allergies Active Allergy Reactions Criticality Noted Date Comments Codeine Itching,Other,Unknown Medium 12/31/2015 Morphine Other,Unknown 07/30/2015 Oxycodone-Acetaminoph en Other 07/30/2015 Other Reaction(s): hives and anxiety Medications acetaminophen (TYLENOL) 500 mg tablet Take 1 tablet (500 mg total) by mouth. 12/30/19 24 Active aspirin 81 mg EC tablet Take 1 tablet (81 mg total) by mouth 1 (one) time each day. 90 tablet 08/09/19 25 Active metoclopramide (REGLAN) 10 mg tablet Take 1 tablet (10 mg total) by mouth 3 (three) times a day before meals. 09/10/19 25 Active atorvastatin (LIPITOR) 80 mg tablet Take 1 tablet (80 mg total) by mouth 1 (one) time each day. 90 tablet 1 09/19/19 25 Active mirtazapine (REMERON) 15 mg tablet Take 1 tablet (15 mg total) by mouth at bedtime. 90 tablet 10/07/19 25 Active clopidogreL (PLAVIX) 75 mg tablet Take 1 tablet (75 mg total) by mouth 1 (one) time each day. 90 tablet 1 10/07/19 25 Active hydrALAZINE (APRESOLINE) 100 mg tablet Take 1 tablet (100 mg total) by mouth 3 (three) times a day. Active amLODIPine (NORVASC) 10 mg tablet Take 1 tablet (10 mg total) by mouth 1 (one) time each day. 30 each 2 10/28/19 25 Active omeprazole (PriLOSEC) [address] capsule Take 1 capsule (20 mg total) by mouth 1 (one) time each day. 08/05/19 14 025 Discontinued(Th erapy completed) atenoloL (TENORMIN) 25 mg tablet TAKE 1 TABLET BY MOUTH EVERY DAY 90 tablet 1 03/27/19 25 025 Discontinued( erapy completed) sertraline (ZOLOFT) 25 mg tablet Take 1 tablet (25 mg total) by mouth 1 (one) time each day. 08/11/19 25 025 Discontinued( erapy completed) hydrALAZINE (APRESOLINE) 50 mg tablet Take 1 tablet (50 mg total) by mouth 2 (two) times a day. 025 Discontinued( erapy completed) amLODIPine (NORVASC) 5 mg tablet Take 1 tablet (5 mg total) by mouth. 10/18/19 25 025 Discontinued Active Problems Problem Noted Date Diagnosed Date History of CVA (cerebrovascular accident) 2024 Assessment & Plan (10/27/2024 3:30 PM EDT): Left hemiparesis and expressive aphasia. On PT, OT. Will continue to monitor. Hypertension 01/15/2024 Assessment & Plan (10/27/2024 3:30 PM EDT): BP is elevated today . 154/87. Currently on Amlodipine 5mg, hydralazine 100mg TID. Will increase the dose of amlodipine 10 mg. Will follow up in 1 month. GERD (gastroesophageal reflux disease) Implantable loop recorder present 10/15/2022 Hyperlipidemia 04/23/2021 Assessment & Plan (10/27/2024 3:30 PM EDT): Currently on Atorvastatin 80mg a day. LDL 48. Continue same medication. Illiteracy 04/23/2021 Stage 4 chronic kidney disease ([facility] V24, [facility] V28) 04/23/2021 Overview (01/15/2024): Follows with nephrology secondary to hypertensive kidney disease Assessment & Plan (10/27/2024 3:30 PM EDT): Last GFR 53. Follows regularly with nephrology. 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 Overview (01/15/2024): microhemorrhages brain on MRI; felt secondary to uncontrolled HTN Posttraumatic stress disorder 02/06/2016 Resolved Problems Problem Noted Date Diagnosed Date Resolved Date Overweight (BMI 25.0-29.9) 06/20/2024 0 10/27/2024 Encounters Date Type Department Care Team Description 11/10/2024 Telephone Adult Medicine [address] [phone] Jo Ann Gagnon MD 11/01/2024 Telephone Adult Medicine [address] [phone] Jo Ann Gagnon MD 10/27/2024 2:30 PM EDT Office Visit Adult Medicine [address] [phone] Jo Ann Gagnon MD Primary hypertension (Primary Dx); Pure hypercholesterolemia ; Stage 3a chronic kidney disease (CMS/HCC V24, CMS/HCC V28); History of CVA (cerebrovascular accident); Encounter for screening involving social determinants of health (SDoH); Screening for depression 10/20/2024 Telephone Adult Medicine [address] [phone] Michelle Desouza MA 10/17/2024 Telephone Adult Medicine [address] [phone] Jo Ann Gagnon MD 10/12/2024 Telephone Adult Medicine [address] [phone] Michelle Desouza MA 10/09/2024 Telephone Adult Medicine [address] [phone] Libia Yoon MA 10/04/2024 Telephone Adult Medicine [address] [phone] Jo Ann Gagnon MD 10/04/2024 Telephone Adult Medicine [address] [phone] Jo Ann Gagnon MD 10/04/2024 Telephone Adult Medicine [address] [phone] Jo Ann Gagnon MD 09/29/2024 Telephone Adult Medicine [address] [phone] Michelle Desouza MA 09/21/2024 Telephone Adult Medicine [address] [phone] Jo Ann Gagnon MD 09/20/2024 Telephone Adult Medicine [address] [phone] Jo Ann Gagnon MD 09/18/2024 1:30 PM EDT Office Visit Adult [address] [phone] Jo Ann Gagnon MD Hospital discharge follow-up (Primary Dx); Cerebrovascular accident (CVA) due to occlusion of left middle cerebral artery (CMS/HCC V24, CMS/HCC V28); History of CVA (cerebrovascular accident); Iron deficiency anemia, unspecified iron deficiency anemia type 09/14/2024 Telephone Adult [address] [phone] Jo Ann Gagnon MD 09/12/2024 Telephone Adult [address] [phone] Jo Ann Gagnon MD 09/11/2024 Telephone Adult [address] [phone] Jo Ann Gagnon MD 09/10/2024 Lab Requisition [facility] [address] [place] [phone] Anuradha Grimm MD Encounter for other general examination 09/07/2024 Telephone Adult [address] [phone] Jo Ann Gagnon MD 09/07/2024 Lab Requisition [facility] [address] [place] [phone] Anuradha Grimm MD Encounter for other general examination 09/04/2024 Lab Requisition [facility] [address] [place] [phone] Aye Wilson PA Encounter for other general examination 09/02/2024 Lab Requisition [facility] [address] [place] [phone] Anuradha Grimm MD Encounter for other general examination 09/01/2024 Lab Requisition [facility] [address] [place] [address] Anuradha Grimm MD Encounter for other general examination 08/30/2024 Lab Requisition [facility] [address] [place] [address] Anuradha Grimm MD Encounter for other general examination from Last 3 Months Immunizations Name Administration [...] Recommend manometry testing OTHER SURGICAL HISTORY PROCEDURE: AR XTRNL PT ACTIV ECG TRANSMIS W/R&I </30 [...] stage 3, GFR 30-59 ml/min ([facility]) Diverticulosis 11/11/2018 DX:Diverticulosi s Internal hemorrhoids 11/11/2018 DX:Internal hemorrhoids Implantable loop recorder present DX:Implantable loop recorder present Family History Medical History Relation Name Comments No Known Problems Brother 1 No Known Problems Brother 2 No Known Problems Brother 3 No Known Problems Brother 4 No Known Problems Brother 5 Migraines Daughter 1 No Known Problems Daughter 2 x3 Hypertension Father IN? Stroke? uns ure. in sleep Hypertension Mother [...] for your loved ones. For example, children's ministries director or elderly care for an older adult? [...] Sign Reading Time Taken Comments Blood Pressure 154/87 10/27/2024 2:17 PM EDT no c/p no sob Pulse 81 10/27/2024 2:13 PM EDT Temperature 35.9 C (96.7 F) 10/27/2024 2:13 PM EDT Respiratory Rate 14 10/27/2024 2:13 PM EDT Oxygen Saturation 97% 10/27/2024 2:13 PM EDT Inhaled Oxygen Concentration - - Weight 60.3 kg (133 lb) 10/27/2024 2:13 PM EDT Height 157.5 cm (5' 2 ) 10/27/2024 2:13 PM EDT Body Mass Index 24.33 10/27/2024 2:13 PM EDT Plan of Treatment Upcoming Encounters Date Type Department Care Team (Late st Contact Info) Description 12/04/2024 12:30 PM EDT Office Visit Adult Medicine [address] [phone] Daniela Billingsley PA [address] [place] [phone] 12/21/2024 12:30 PM EDT Office Visit [address] [phone] Jo Ann Gagnon MD [address] [place] [address] Health Maintenance Due Date Last Done Comments COVID-19 Vaccine (#1) 10/08/1967 DTaP,Tdap,and Td Vaccines (1 - Tdap) 1981 Zoster Vaccines (1 of 2) 1981 Pneumococcal Vaccine: 50+ Years (1 of 1 - PCV) 2012 Cervical Cancer Screening: HPV 09/20/2024 09/21/2019 Influenza Vaccine (#1) 2024 01/01/2022, 2012 Breast Cancer Screening 12/28/2024 12/29/19 24, 12/29/2023, 12/25/2022, Additional history exists Hypertension/CHF/CAD Annual BMP Blood Test 09/10/2025 09/10/2024, 09/07/2024, 09/04/2024, Additional history exists Social Influencers of Health Screening 10/27/2025 10/27/2024, 09/17/2023 Colorectal Cancer Screening: Colonoscopy 11/11/2028 11/11/2018 Cholesterol Screening (Lipid Panel) 06/12/2029 06/12/2024, 05/11/2022 RSV Immunization Adult Patients (1 - 1-dose 75+ series) 2037 Hepatitis C Screening Addressed 06/24/2018 Overri dden with the intention of not completing the topic HIV Screening Completed 06/12/2024 Depression Screening Completed 10/27/2024 HIB Vaccines Aged Out No longer eligi [...] Procedure Name Priority Date/Time Associated Diagnosis Comments EXTERNAL DIABETIC RETINA EYE EXAM Routine 10/31/2024 3:04 PM EDT EXTERNAL DIABETIC RETINA EYE EXAM Routine 10/31/2024 12:20 PM EDT CBC WITH AUTO DIFFERENTIAL Routine 10/27/2024 3:10 PM EDT Iron deficiency anemia, unspecified iron deficiency anemia type CBC AND DIFFERENTIAL Routine 10/27/2024 3:10 PM EDT Iron deficiency anemia, unspecified iron deficiency anemia type BASIC METABOLIC PANEL Routine 09/10/2024 6:02 AM [...] AM EDT Encounter for other general examination HIV 1, 2 ANTIBODY, P24 ANTIGEN WITH [...] Recently Relevant to Health Maintenance Results * External Diabetic Retina Eye Exam Report (10/31/2024 3:04 PM EDT) Only the most recent of2 resultswithin the time period is included. Anatomical Region Laterality Modality Ultrasound us Historical Provider MD ALBERTO US PROCEDURES Final R esult * (ABNORMAL) CBC auto differential (10/27/2024 3:10 PM EDT) Only the most recent of2 resultswithin the time period is included. WBC 9.6 4.8 - 10.8 K/mcL LAB HEMETOLOGY METHOD 10/27/2024 5:[address] [facility] RBC 4.00 3.80 - 4.80 M/mcL LAB HEMETOLOGY METHOD 10/27/2024 5:[address] [facility] Hemoglobin 11.4(L) 11.5 - 16.0 g/dL LAB HEMETOLOGY METHOD 10/27/2024 5:[address] [facility] Hematocrit 36.9 35.0 - 47.0 % LAB HEMETOLOGY METHOD 10/27/2024 5:[address] [facility] MCV 92.9 79.0 - 98.0 FL LAB HEMETOLOGY METHOD 10/27/2024 5:[address] [facility] MCH 28.7 27.0 - 32.0 pcg LAB HEMETOLOGY METHOD 10/27/2024 5:[address] [facility] MCHC 30.9(L) 32.0 - 37.0 g/dL LAB HEMETOLOGY METHOD 10/27/2024 5:[address] [facility] RDW 13.6 11.0 - 15.0 % LAB HEMETOLOGY METHOD 10/27/2024 5:[address] [facility] Platelets 478(H) 130 - 400 K/mcL LAB HEMETOLOGY METHOD 10/27/2024 5:[address] [facility] MPV 11.3(H) 7.0 - 11.0 FL LAB HEMETOLOGY METHOD 10/27/2024 5:[address] [facility] NRBC 0.0 <1.0 % LAB HEMETOLOGY METHOD 10/27/2024 5:[address] [facility] NRBC Absolute 0.00 <0.10 K/mcL LAB HEMETOLOGY METHOD 10/27/2024 5:[address] [facility] Neutrophils Relative 53.6 % LAB HEMETOLOGY METHOD 10/27/2024 5:[address] [facility] Lymphocytes Relative 35.4 % LAB HEMETOLOGY METHOD 10/27/2024 5:[address] [facility] Monocytes Relative 7.9 % LAB HEMETOLOGY METHOD 10/27/2024 5:[address] [facility] Eosinophils Relative 1.8 % LAB HEMETOLOGY METHOD 10/27/2024 5:[address] [facility] Basophils Relative 0.8 % LAB HEMETOLOGY METHOD 10/27/2024 5:[address] [facility] Immature Granulocytes Relative 0.5 % LAB HEMETOLOGY METHOD 10/27/2024 5:[address] [facility] Neutrophils Absolute 5.15 1.50 - 7.00 K/mcL LAB HEMETOLOGY METHOD 10/27/2024 5:[address] [facility] Lymphocytes Absolute 3.40 1.00 - 5.00 K/mcL LAB HEMETOLOGY METHOD 10/27/2024 5:[address] [facility] Monocytes Absolute 0.76 0.20 - 1.00 K/mcL LAB HEMETOLOGY METHOD 10/27/2024 5:[address] [facility] Eosinophils Absolute 0.17 0.00 - 0.50 K/mcL LAB HEMETOLOGY METHOD 10/27/2024 5:[address] [facility] Basophils Absolute 0.08 0.00 - 0.20 K/mcL LAB HEMETOLOGY METHOD 10/27/2024 5:[address] [facility] Immature Granulocytes Absolute 0.05(H) 0.00 - 0.03 K/mcL LAB HEMETOLOGY METHOD 10/27/2024 5:[address] [facility] Blood Venous blood specimen / Unknown Venipuncture / Unknown 10/27/2024 3:10 PM EDT 10/27/2024 3:10 PM EDT us Jo Ann Gagnon MD LAB BLOOD ORDERABL ES Final Result [facility] [address] [place] [address], * (ABNORMAL) Basic metabolic panel (09/10/2024 6:02 [...] LAB CHEMISTRY METHOD 09/10/2024 9:[address] [facility] eGFR 41(L) >=60 mL/min/1. 73m2 LAB CHEMISTRY METHOD 09/10/2024 9:[address] [facility] Comment:Calculation based on the Chronic Kidney Disease Epidemiology Collaboration (CKD-EPI) equation refit without adjustment for race. BUN/Creatinine Ratio 31.7 LAB CHEMISTRY METHOD 09/10/2024 9:[address] [facility] Calcium 9.7 8.5 - 10.5 mg/dL LAB CHEMISTRY METHOD 09/10/2024 9:[address] [facility] Blood Venous blood specimen / Unknown Venipuncture / Unknown 09/10/2024 6:02 AM EDT 09/10/2024 9:16 AM EDT us Anuradha Grimm MD LAB BLOOD ORDERABLES Final Resu lt [facility] [address] [place] [address], [place] [phone] * (ABNORMAL) Complete blood count (09/07/2024 5:45 AM EDT) Only the most recent of2 resultswithin the time period is included. WBC 6.6 4.8 - 10.8 K/mcL LAB HEMETOLOGY METHOD 09/07/2024 11:[address] [facility] RBC 3.00(L) 3.80 - 4.80 M/mcL LAB HEMETOLOGY METHOD 09/07/2024 11:[address] [facility] Hemoglobin 8.8(L) 11.5 - 16.0 g/dL LAB HEMETOLOGY METHOD 09/07/2024 11:[address] [facility] Hematocrit 28.4(L) 35.0 - 47.0 % LAB HEMETOLOGY METHOD 09/07/2024 11:[address] [facility] MCV 96.3 79.0 - 98.0 FL LAB HEMETOLOGY METHOD 09/07/2024 11:[address] [facility] MCH 29.8 27.0 - 32.0 pcg LAB HEMETOLOGY METHOD 09/07/2024 11:[address] [facility] MCHC 31.0(L) 32.0 - 37.0 g/dL LAB HEMETOLOGY METHOD 09/07/2024 11:[address] [facility] RDW 14.3 11.0 - 15.0 % LAB HEMETOLOGY METHOD 09/07/2024 11:[address] [facility] Platelets 312 130 - 400 K/mcL LAB HEMETOLOGY METHOD 09/07/2024 11:[address] [facility] MPV 12.0(H) 7.0 - 11.0 FL LAB HEMETOLOGY METHOD 09/07/2024 11:[address] [facility] NRBC 0.0 <1.0 % LAB HEMETOLOGY METHOD 09/07/2024 11:[address] [facility] NRBC Absolute 0.00 <0.10 K/mcL LAB HEMETOLOGY METHOD 09/07/2024 11:[address] [facility] Blood Venous blood specimen / Unknown Venipuncture / Unknown 09/07/2024 5:45 AM EDT 09/07/2024 10:25 AM EDT us Anuradha Grimm MD LAB BLOOD ORDERABLES Final Resu lt [facility] [address] [place] [address], * Magnesium (09/07/2024 5:45 AM EDT) Only the most recent of3 resultswithin the time period is included. Magnesium 1.9 1.9 - 2.6 mg/dL LAB CHEMISTRY METHOD 09/07/2024 11:[address] [facility] Blood Venous blood specimen / Unknown Venipuncture / Unknown 09/07/2024 5:45 AM EDT 09/07/2024 10:25 AM EDT us Anuradha Grimm MD LAB BLOOD ORDERABLES Final Resu lt [facility] [address] [place] [address], [place] [phone] * (ABNORMAL) Comprehensive metabolic panel (09/07/2024 5:45 [...] MD LAB BLOOD ORDERABLES Final Resu lt [facility] [address] [place] [address], * HIV 1,2 antibody, p24 antigen with reflex to differentiation (06/12/2024 9:00 AM EDT) [facility] HIV Combo AB/AG Negative Negative LAB CHEMISTRY METHOD 06/12/2024 3:[address] [facility] Blood Venous blood specimen / Unknown Venipuncture / Unknown 06/12/2024 9:00 AM EDT 06/12/2024 9:[address] [facility] - 06/12/2024 3:31 PM EDT This assay is a 4th generation assay allowing for earlier detection of HIV infection by detecting the presence of the HIV-1 p24 antigen as well as the traditional antibodies to HIV type 1 (including group O) and type 2. Use of a 4th generation assay is the current CDC recommendation for HIV screening. us Blanca Rommel DUNCAN LAB BLOOD ORDERABLES Final Resul t [facility] [address] [place] [address], [place] [phone] * (ABNORMAL) Lipid panel with reflex to direct LDL (06/12/2024 9:00 AM EDT) [facility] Cholesterol 114 0 - 200 mg/dL LAB CHEMISTRY METHOD 06/12/2024 2:[address] [facility] Triglycerides 133 0 - 150 mg/dL LAB CHEMISTRY METHOD 06/12/2024 2:[address] [facility] HDL 39(L) >=40 mg/dL LAB CHEMISTRY METHOD 06/12/2024 2:[address] [facility] LDL Calculated 48 0 - 100 mg/dL LAB CHEMISTRY METHOD 06/12/2024 2:[address] [facility] VLDL Cholesterol Blue 26.6 mg/dL LAB CHEMISTRY METHOD 06/12/2024 2:[address] [facility] Non HDL Chol. (LDL+VLDL) 75 <145 mg/dL LAB CHEMISTRY METHOD 06/12/2024 2:[address] [facility] Chol/HDL Ratio 2.9 0.0 - 4.4 LAB CHEMISTRY METHOD 06/12/2024 2:[address] [facility] Blood Venous blood specimen / Unknown Venipuncture / Unknown 06/12/2024 9:00 AM EDT 06/12/2024 9:00 AM EDT us Blanca DUNCAN LAB BLOOD ORDERABLES Final Resul t [facility] [address] [place] [address], [place] [phone] * SCREENING MAMMOGRAPHY BI 2-VIEW BREAST [employer] [...] Recommendation: Routine annual screening mammography is recommended [facility] [address] [place] [id number] Procedure Note Hank Lundberg MD - 01/08/2024 [...] Recommendation: Routine annual screening mammography is recommended [facility] [address] [id number] Daniela DUNCAN IMG XR PROCEDURES Final Result from Last 3 Months or Most Recently Relevant to Health Maintenance Insurance HEALTH PLAN Advance Directives Documents on File Type Date Recorded Patient Cutlery Grinder Expl anation Health Care Decision (hx) 01/11/2022 LAXMI KAHN DIRECTIVE Care Teams Online Merchandising Specialist Relationship Specialty Start Date End Date Jo Ann Gagnon MD [address] [place] [phone] PCP - General Internal Medicine 10/07/21
--- OUTSIDE RECORDS SUMMARY | 2024-11-23 15:31 | XMS_ITS | Encounter Summary ---
Author Organization [facility] Address [address] [place] [address] Care Team Providers Care Track Laying Machine Operator Name Role Phone Jo Ann Gagnon MD Primary Care Prov ider Encounter Details Date Type Department Care Team (Late Contact Info) Description 09/07/[address] [facility] - Main Lab [address] [facility] [place] [address] Anuradha Grimm MD [address] [place] [id number] Encounter for other general examination Social History [...] 12:30 PM EDT Office Visit Adult Medicine [address] [phone] Daniela Billingsley PA [address] [place], [place] 12/21/2024 12:30 PM EDT Office Visit Adult Medicine [facility] [address] [place] [address] Jo Ann Gagnon MD [address] [place] [address] documented as of this encounter Procedures Procedure Name Priority Date/Time Associated Diagnosis Comments COMPLETE BLOOD COUNT Routine 09/07/2024 5:45 AM EDT Encounter for other general examination MAGNESIUM Routine 09/07/2024 5:45 AM EDT Encounter for other general examination COMPREHENSIVE METABOLIC PANEL Routine 09/07/2024 5:45 AM EDT Encounter for other general examination documented in this encounter Results * Magnesium (09/07/2024 5:45 AM EDT) Pathologist [facility] Magnesium 1.9 1.9 - 2.6 mg/dL LAB CHEMISTRY METHOD 09/07/2024 11:56 AM EDT [facility] Blood Venous blood specimen / Unknown Venipuncture / Unknown 09/07/2024 5:45 AM EDT 09/07/2024 10:25 AM EDT us Anuradha Grimm MD LAB BLOOD ORDERABLES Final Resu lt [facility] [address] [place] [address], * (ABNORMAL) Comprehensive metabolic panel (09/07/2024 5:45 AM EDT) Sodium 138 133 - 145 mmol/L LAB CHEMISTRY METHOD 09/07/2024 11:56 AM EDT [facility] Potassium 4.8 3.5 - 5.5 mmol/L LAB CHEMISTRY METHOD 09/07/2024 11:56 AM EDT [facility] Chloride 109 96 - 110 mmol/L LAB CHEMISTRY METHOD 09/07/2024 11:56 AM [facility] CO2 24 21 - 32 mmol/L LAB CHEMISTRY METHOD 09/07/2024 11:56 AM [facility] Anion Gap 5 3 - 11 LAB CHEMISTRY METHOD 09/07/2024 11:56 AM [facility] Glucose 65(L) 70 - 100 mg/dL LAB CHEMISTRY METHOD 09/07/2024 11:56 AM [facility] BUN 38(H) 5 - 25 mg/dL LAB CHEMISTRY METHOD 09/07/2024 11:56 AM [facility] Creatinine 1.17(H) 0.50 - 1.10 mg/dL LAB CHEMISTRY METHOD 09/07/2024 11:56 AM [facility] eGFR 53(L) >=60 mL/min/1. 73m2 LAB CHEMISTRY METHOD 09/07/2024 11:56 AM [facility] Comment:Calculation based on the Chronic Kidney Disease Epidemiology Collaboration (CKD-EPI) equation refit without adjustment for race. BUN/Creatinine Ratio 32.5 LAB CHEMISTRY METHOD 09/07/2024 11:56 AM [facility] Calcium 9.5 8.5 - 10.5 mg/dL LAB CHEMISTRY METHOD 09/07/2024 11:56 AM [facility] AST (SGOT) 18 10 - 42 unit/L LAB CHEMISTRY METHOD 09/07/2024 11:56 AM [facility] ALT (SGPT) 37 10 - 60 unit/L LAB CHEMISTRY METHOD 09/07/2024 11:56 AM [facility] Alkaline Phosphatase 84 42 - 121 unit/L LAB CHEMISTRY METHOD 09/07/2024 11:56 AM [facility] Total Protein 6.7 6.0 - 8.0 g/dL LAB CHEMISTRY METHOD 09/07/2024 11:56 AM [facility] Albumin 3.1(L) 3.2 - 5.0 g/dL LAB CHEMISTRY METHOD 09/07/2024 11:56 AM EDT [facility] Total Bilirubin 0.2 0.0 - 1.4 mg/dL LAB CHEMISTRY METHOD 09/07/2024 11:56 AM [facility] Blood Venous blood specimen / Unknown Venipuncture / Unknown 09/07/2024 5:45 AM EDT 09/07/2024 10:25 AM EDT us Anuradha Grimm MD LAB BLOOD ORDERABLES Final Resu lt [facility] [address] [place] [address], [place] [phone] * (ABNORMAL) Complete blood count (09/07/2024 5:45 AM EDT) WBC 6.6 4.8 - 10.8 K/mcL LAB HEMETOLOGY METHOD 09/07/2024 11:00 AM [facility] RBC 3.00(L) 3.80 - 4.80 M/mcL LAB HEMETOLOGY METHOD 09/07/2024 11:00 AM [facility] Hemoglobin 8.8(L) 11.5 - 16.0 g/dL LAB HEMETOLOGY METHOD 09/07/2024 11:00 AM [facility] Hematocrit 28.4(L) 35.0 - 47.0 % LAB HEMETOLOGY METHOD 09/07/2024 11:00 AM [facility] MCV 96.3 79.0 - 98.0 FL LAB HEMETOLOGY METHOD 09/07/2024 11:00 AM [facility] MCH 29.8 27.0 - 32.0 pcg LAB HEMETOLOGY METHOD 09/07/2024 11:00 AM [facility] MCHC 31.0(L) 32.0 - 37.0 g/dL LAB HEMETOLOGY METHOD 09/07/2024 11:00 AM EDT [facility] RDW 14.3 11.0 - 15.0 % LAB HEMETOLOGY METHOD 09/07/2024 11:00 AM EDT [facility] Platelets 312 130 - 400 K/mcL LAB HEMETOLOGY METHOD 09/07/2024 11:00 AM EDT [facility] MPV 12.0(H) 7.0 - 11.0 FL LAB HEMETOLOGY METHOD 09/07/2024 11:00 AM EDT [facility] NRBC 0.0 <1.0 % LAB HEMETOLOGY METHOD 09/07/2024 11:00 AM EDT [facility] NRBC Absolute 0.00 <0.10 K/mcL LAB HEMETOLOGY METHOD 09/07/2024 11:00 AM EDT [facility] Blood Venous blood specimen / Unknown Venipuncture / Unknown 09/07/2024 5:45 AM EDT 09/07/2024 10:25 AM EDT us Anuradha Grimm MD LAB BLOOD ORDERABLES Final Resu lt [facility] [address] [place] [address], documented in this encounter Visit Diagnoses Diagnosis Encounter for other general examination documented in this encounter Care Teams Track Laying Machine Operator Relationship Specialty Start Date End Date Jo Ann Gagnon MD [address] [place] [phone] PCP - General Internal Medicine 10/07/21 documented as of this encounter
--- OUTSIDE RECORDS SUMMARY | 2024-11-23 15:31 | XMS_ITS | Clinical Summary ---
Author Organization [facility] Address [address] [place] [address] Phone Care Team Providers Care Hostel Parent Name Role Phone Oralia Helton MD Primary Care Provider [phone] Allergies Active Allergy Reactions Criticality Noted Date [...] (04/23/2021): Mild s/p sleep study done at [facility] January 2020 History of cerebrovascular accident 11/16/2019 [...] to complete this topic Insurance Care Teams Hostel Parent Relationship Specialty Start Date End Date Oralia Helton MD [address] [place] [address] PCP - General 03/18/20
--- OUTSIDE RECORDS SUMMARY | 2024-11-23 15:31 | XMS_ITS | Encounter Summary ---
Author Organization [facility] Address [address] [place] [address] Care Team Providers Care Accreditation Specialist Name Role Phone Jo Ann Gagnon MD Primary Care Prov ider Encounter Details Date Type Department Care Team (Late Contact Info) Description 09/10/[address] [facility] - Main Lab [address] [facility] [place] [address] Anuradha Grimm MD [address] [place] [phone] Encounter for other general examination Social History [...] 12:30 PM EDT Office Visit Adult Medicine [address] [phone] Daniela Billingsley PA [address] [place], [place] 12/21/2024 12:30 PM EDT Office Visit Adult Medicine [facility] [address] [place] [address] Jo Ann Gagnon MD [address] [place], [place] documented as of this encounter Procedures Procedure Name Priority Date/Time Associated Diagnosis Comments BASIC METABOLIC PANEL Routine 09/10/2024 6:02 AM EDT Encounter for other general examination documented in this encounter Results * (ABNORMAL) Basic metabolic panel (09/10/2024 6:02 AM EDT) Sodium 142 133 - 145 mmol/L LAB CHEMISTRY METHOD 09/10/2024 9:49 AM [facility] Potassium 4.8 3.5 - 5.5 mmol/L LAB CHEMISTRY METHOD 09/10/2024 9:49 AM [facility] Chloride 111(H) 96 - 110 mmol/L LAB CHEMISTRY METHOD 09/10/2024 9:49 AM [facility] CO2 26 21 - 32 mmol/L LAB CHEMISTRY METHOD 09/10/2024 9:49 AM [facility] Anion Gap 5 3 - 11 LAB CHEMISTRY METHOD 09/10/2024 9:49 AM [facility] Glucose 83 70 - 100 mg/dL LAB CHEMISTRY METHOD 09/10/2024 9:49 AM [facility] BUN 46(H) 5 - 25 mg/dL LAB CHEMISTRY METHOD 09/10/2024 9:49 AM [facility] Creatinine 1.45(H) 0.50 - 1.10 mg/dL LAB CHEMISTRY METHOD 09/10/2024 9:49 AM [facility] eGFR 41(L) >=60 mL/min/1. 73m2 LAB CHEMISTRY METHOD 09/10/2024 9:49 AM [facility] Comment:Calculation based on the Chronic Kidney Disease Epidemiology Collaboration (CKD-EPI) equation refit without adjustment for race. BUN/Creatinine Ratio 31.7 LAB CHEMISTRY METHOD 09/10/2024 9:49 AM EDT [facility] Calcium 9.7 8.5 - 10.5 mg/dL LAB CHEMISTRY METHOD 09/10/2024 9:49 AM EDT [facility] Blood Venous blood specimen / Unknown Venipuncture / Unknown 09/10/2024 6:02 AM EDT 09/10/2024 9:16 AM EDT us Anuradha Grimm MD LAB BLOOD ORDERABLES Final Resu lt [facility] [address] [place] [address], documented in this encounter Visit Diagnoses Diagnosis Encounter for other general examination documented in this encounter Care Teams Accreditation Specialist Relationship Specialty Start Date End Date Jo Ann Gagnon MD [address] [place] [phone] PCP - General Internal Medicine 10/07/21 documented as of this encounter
--- OUTSIDE RECORDS SUMMARY | 2024-11-23 15:31 | XMS_ITS | Encounter Summary ---
Author Organization [facility] Address [address] [place] [address] Care Team Providers Care Candy Starch Mold Printer Name Role Phone Jo Ann Gagnon MD Primary Care Prov ider Encounter Details Date Type Department Care Team (Late Contact Info) Description 09/01/2024 Lab Requisition [facility] - Main Lab [address] [facility] [place] [address] Anuradha Grimm MD [address] [place] [address] Encounter for other general examination Social History [...] 12:30 PM EDT Office Visit Adult Medicine [address] [phone] Daniela Billingsley PA [address] [place], [place] 12/21/2024 12:30 PM EDT Office Visit Adult Medicine [facility] [address] [place] [address] Jo Ann Gagnon MD [address] [place], [place] documented as of this encounter Procedures Procedure Name Priority Date/Time Associated Diagnosis Comments BASIC METABOLIC PANEL Routine 09/01/2024 4:44 AM EDT Encounter for other general examination documented in this encounter Results * (ABNORMAL) Basic metabolic panel (09/01/2024 4:44 AM EDT) Sodium 143 133 - 145 mmol/L LAB CHEMISTRY METHOD 09/01/2024 9:45 AM [facility] Potassium 3.3(L) 3.5 - 5.5 mmol/L LAB CHEMISTRY METHOD 09/01/2024 9:45 AM [facility] Chloride 111(H) 96 - 110 mmol/L LAB CHEMISTRY METHOD 09/01/2024 9:45 AM [facility] CO2 23 21 - 32 mmol/L LAB CHEMISTRY METHOD 09/01/2024 9:45 AM [facility] Anion Gap 9 3 - 11 LAB CHEMISTRY METHOD 09/01/2024 9:45 AM [facility] Glucose 406(HH) 70 - 100 mg/dL LAB CHEMISTRY METHOD 09/01/2024 9:45 AM [facility] BUN 23 5 - 25 mg/dL LAB CHEMISTRY METHOD 09/01/2024 9:45 AM [facility] Creatinine 1.32(H) 0.50 - 1.10 mg/dL LAB CHEMISTRY METHOD 09/01/2024 9:45 AM [facility] eGFR 46(L) >=60 mL/min/1. 73m2 LAB CHEMISTRY METHOD 09/01/2024 9:45 AM [facility] Comment:Calculation based on the Chronic Kidney Disease Epidemiology Collaboration (CKD-EPI) equation refit without adjustment for race. BUN/Creatinine Ratio 17.4 LAB CHEMISTRY METHOD 09/01/2024 9:45 AM EDT [facility] Calcium 8.2(L) 8.5 - 10.5 mg/dL LAB CHEMISTRY METHOD 09/01/2024 9:45 AM EDT [facility] Blood Venous blood specimen / Unknown Venipuncture / Unknown 09/01/2024 4:44 AM EDT 09/01/2024 8:02 AM EDT us Anuradha Grimm MD LAB BLOOD ORDERABLES Final Resu lt [facility] [address] [place] [address], documented in this encounter Visit Diagnoses Diagnosis Encounter for other general examination documented in this encounter Care Teams Candy Starch Mold Printer Relationship Specialty Start Date End Date Jo Ann Gagnon MD [address] [place] [phone] PCP - General Internal Medicine 10/07/21 documented as of this encounter
--- OUTSIDE RECORDS SUMMARY | 2024-11-23 15:32 | XMS_ITS | Encounter Summary ---
Author Organization [facility] Address [address] [place] [address] Care Team Providers Care Yardage Estimator Name Role Phone Jo Ann Gagnon MD Primary Care Prov ider Encounter Details Date Type Department Care Team (Late st Contact Info) Description 09/04/2024 Lab Requisition [facility] - Main Lab 299 [facility] [place] [phone] Aye Wilson PA [facility] [address] [place] [address] Encounter for other general examination Social History [...] 12/04/2024 12:30 PM EDT Office Visit Adult [address] [phone] Daniela Billingsley PA 444 [place], [place] 12/21/2024 12:30 PM EDT Office Visit Adult Medicine [facility] [address] [place], [place] [phone] Jo Ann Gagnon MD 4 [place], [place] documented as of this encounter Procedures Procedure Name Priority Date/Time Associated Diagnosis Comments COMPLETE BLOOD COUNT Routine 09/04/2024 5:48 AM EDT Encounter for other general examination MAGNESIUM Routine 09/04/2024 5:48 AM EDT Encounter for other general examination COMPREHENSIVE METABOLIC PANEL Routine 09/04/2024 5:48 AM EDT Encounter for other general examination documented in this encounter Results * Magnesium (09/04/2024 5:48 AM EDT) Pathologist [facility] Magnesium 2.1 1.9 - 2.6 mg/dL LAB CHEMISTRY METHOD 09/04/2024 12:36 PM EDT [facility] Blood Venous blood specimen / Unknown Venipuncture / Unknown 09/04/2024 5:48 AM EDT 09/04/2024 10:36 AM EDT Aye [facility] LAB BLOOD ORDERABLES Fin al Result [facility] [address] [place] [address], * (ABNORMAL) Comprehensive metabolic panel (09/04/2024 5:48 AM EDT) Sodium 143 133 - 145 mmol/L LAB CHEMISTRY METHOD 09/04/2024 12:48 PM EDT [facility] Potassium 4.6 3.5 - 5.5 mmol/L LAB CHEMISTRY METHOD 09/04/2024 12:48 PM EDT [facility] Chloride 111(H) 96 - 110 mmol/L LAB CHEMISTRY METHOD 09/04/2024 12:[address] [facility] CO2 23 21 - 32 mmol/L LAB CHEMISTRY METHOD 09/04/2024 12:[address] [facility] Anion Gap 9 3 - 11 LAB CHEMISTRY METHOD 09/04/2024 12:[address] [facility] Glucose 75 70 - 100 mg/dL LAB CHEMISTRY METHOD 09/04/2024 12:[address] [facility] BUN 34(H) 5 - 25 mg/dL LAB CHEMISTRY METHOD 09/04/2024 12:[address] [facility] Creatinine 1.40(H) 0.50 - 1.10 mg/dL LAB CHEMISTRY METHOD 09/04/2024 12:[address] [facility] eGFR 43(L) >=60 mL/min/1. 73m2 LAB CHEMISTRY METHOD 09/04/2024 12:[address] [facility] Comment:Calculation based on the Chronic Kidney Disease Epidemiology Collaboration (CKD-EPI) equation refit without adjustment for race. BUN/Creatinine Ratio 24.3 LAB CHEMISTRY METHOD 09/04/2024 12:[address] [facility] Calcium 9.2 8.5 - 10.5 mg/dL LAB CHEMISTRY METHOD 09/04/2024 12:[address] [facility] AST (SGOT) 22 10 - 42 unit/L LAB CHEMISTRY METHOD 09/04/2024 12:[address] [facility] ALT (SGPT) 50 10 - 60 unit/L LAB CHEMISTRY METHOD 09/04/2024 12:[address] [facility] Alkaline Phosphatase 87 42 - 121 unit/L LAB CHEMISTRY METHOD 09/04/2024 12:[address] [facility] Total Protein 6.9 6.0 - 8.0 g/dL LAB CHEMISTRY METHOD 09/04/2024 12:[address] [facility] Albumin 3.1(L) 3.2 - 5.0 g/dL LAB CHEMISTRY METHOD 09/04/2024 12:48 PM EDT [facility] Total Bilirubin 0.4 0.0 - 1.4 mg/dL LAB CHEMISTRY METHOD 09/04/2024 12:48 PM EDT [facility] Blood Venous blood specimen / Unknown Venipuncture / Unknown 09/04/2024 5:48 AM EDT 09/04/2024 10:36 AM EDT us Aye [facility] LAB BLOOD ORDERABLES Fin al Result [facility] [address] [place] [address], * (ABNORMAL) Complete blood count (09/04/2024 5:48 AM EDT) WBC 9.0 4.8 - 10.8 K/mcL LAB HEMETOLOGY METHOD 09/04/2024 11:[address] [facility] RBC 3.10(L) 3.80 - 4.80 M/mcL LAB HEMETOLOGY METHOD 09/04/2024 11:[address] [facility] Hemoglobin 9.3(L) 11.5 - 16.0 g/dL LAB HEMETOLOGY METHOD 09/04/2024 11:[address] [facility] Hematocrit 30.3(L) 35.0 - 47.0 % LAB HEMETOLOGY METHOD 09/04/2024 11:33 AM T [facility] MCV 98.7(H) 79.0 - 98.0 FL LAB HEMETOLOGY METHOD 09/04/2024 11:[address] [facility] MCH 30.3 27.0 - 32.0 pcg LAB HEMETOLOGY METHOD 09/04/2024 11:[address] [facility] MCHC 30.7(L) 32.0 - 37.0 g/dL LAB HEMETOLOGY METHOD 09/04/2024 11:33 AM EDT [facility] RDW 14.4 11.0 - 15.0 % LAB HEMETOLOGY METHOD 09/04/2024 11:33 AM EDT [facility] Platelets 277 130 - 400 K/mcL LAB HEMETOLOGY METHOD 09/04/2024 11:33 AM EDT [facility] MPV 12.4(H) 7.0 - 11.0 FL LAB HEMETOLOGY METHOD 09/04/2024 11:33 AM EDT [facility] NRBC 0.0 <1.0 % LAB HEMETOLOGY METHOD 09/04/2024 11:33 AM EDT [facility] NRBC Absolute 0.00 <0.10 K/mcL LAB HEMETOLOGY METHOD 09/04/2024 11:33 AM EDT [facility] Blood Venous blood specimen / Unknown Venipuncture / Unknown 09/04/2024 5:48 AM EDT 09/04/2024 10:36 AM EDT [facility] LAB BLOOD ORDERABLES Fin al Result [facility] [address] [place] [address], documented in this encounter Visit Diagnoses Diagnosis Encounter for other general examination documented in this encounter Care Teams Yardage Estimator Relationship Specialty Start Date End Date Jo Ann Gagnon MD [address] [place] [phone] PCP - General Internal Medicine 10/07/21 documented as of this encounter
--- OUTSIDE RECORDS SUMMARY | 2024-11-23 15:32 | XMS_ITS | Encounter Summary ---
Author Organization [facility] Address [address] [place] [address] Care Team Providers Care Flatwork Catcher Name Role Phone Jo Ann Gagnon MD Primary Care Prov ider Encounter Details Date Type Department Care Team (Late Contact Info) Description 08/30/[address] [facility] - Main Lab [address] [facility] [place] [address] Anuradha Grimm MD [address] [place] [phone] Encounter for other general examination Social History [...] 12:30 PM EDT Office Visit Adult Medicine [address] [phone] Daniela Billingsley PA [address] [place], [place] 12/21/2024 12:30 PM EDT Office Visit Adult Medicine [facility] [address] [place] [address] Jo Ann Gagnon MD [address] [place] [address] documented as of this encounter Procedures Procedure Name Priority Date/Time Associated Diagnosis Comments CBC WITH AUTO DIFFERENTIAL Routine 08/30/2024 5:06 AM EDT Encounter for other general examination CBC AND DIFFERENTIAL Routine 08/30/2024 5:06 AM EDT Encounter for other general examination MAGNESIUM Routine 08/30/2024 5:06 AM EDT Encounter for other general examination COMPREHENSIVE METABOLIC PANEL Routine 08/30/2024 5:06 AM EDT Encounter for other general examination documented in this encounter Results * (ABNORMAL) CBC auto differential (08/30/2024 5:06 AM EDT) WBC 8.7 4.8 - 10.8 K/mcL LAB HEMETOLOGY METHOD 08/30/2024 10:36 AM [facility] RBC 3.40(L) 3.80 - 4.80 M/mcL LAB HEMETOLOGY METHOD 08/30/2024 10:36 AM [facility] Hemoglobin 10.0(L) 11.5 - 16.0 g/dL LAB HEMETOLOGY METHOD 08/30/2024 10:36 AM [facility] Hematocrit 32.0(L) 35.0 - 47.0 % LAB HEMETOLOGY METHOD 08/30/2024 10:36 AM [facility] MCV 95.5 79.0 - 98.0 FL LAB HEMETOLOGY METHOD 08/30/2024 10:36 AM [facility] MCH 29.9 27.0 - 32.0 pcg LAB HEMETOLOGY METHOD 08/30/2024 10:36 AM [facility] MCHC 31.3(L) 32.0 - 37.0 g/dL LAB HEMETOLOGY METHOD 08/30/2024 10:36 AM [facility] RDW 14.4 11.0 - 15.0 % LAB HEMETOLOGY METHOD 08/30/2024 10:36 AM [facility] Platelets 322 130 - 400 K/mcL LAB HEMETOLOGY METHOD 08/30/2024 10:36 AM [facility] MPV 12.0(H) 7.0 - 11.0 FL LAB HEMETOLOGY METHOD 08/30/2024 10:36 AM [facility] NRBC 0.0 <1.0 % LAB HEMETOLOGY METHOD 08/30/2024 10:36 AM [facility] NRBC Absolute 0.00 <0.10 K/mcL LAB HEMETOLOGY METHOD 08/30/2024 10:36 AM [facility] Neutrophils Relative 72.4 % LAB HEMETOLOGY METHOD 08/30/2024 10:36 AM [facility] Lymphocytes Relative 19.1 % LAB HEMETOLOGY METHOD 08/30/2024 10:36 AM [facility] Monocytes Relative 6.5 % LAB HEMETOLOGY METHOD 08/30/2024 10:36 AM [facility] Eosinophils Relative 0.6 % LAB HEMETOLOGY METHOD 08/30/2024 10:36 AM [facility] Basophils Relative 0.6 % LAB HEMETOLOGY METHOD 08/30/2024 10:36 AM [facility] Immature Granulocytes Relative 0.8 % LAB HEMETOLOGY METHOD 08/30/2024 10:36 AM [facility] Neutrophils Absolute 6.28 1.50 - 7.00 K/mcL LAB HEMETOLOGY METHOD 08/30/2024 10:36 AM EDT [facility] Lymphocytes Absolute 1.65 1.00 - 5.00 K/[facility] LAB HEMETOLOGY METHOD 08/30/2024 10:36 AM EDT [facility] Monocytes Absolute 0.56 0.20 - 1.00 K/[facility] LAB HEMETOLOGY METHOD 08/30/2024 10:36 AM EDT [facility] Eosinophils Absolute 0.05 0.00 - 0.50 K/[facility] LAB HEMETOLOGY METHOD 08/30/2024 10:36 AM EDT [facility] Basophils Absolute 0.05 0.00 - 0.20 K/[facility] LAB HEMETOLOGY METHOD 08/30/2024 10:36 AM EDT [facility] Immature Granulocytes Absolute 0.07(H) 0.00 - 0.03 K/[facility] LAB HEMETOLOGY METHOD 08/30/2024 10:36 AM EDT [facility] Blood Venous blood specimen / Unknown Venipuncture / Unknown 08/30/2024 5:06 AM EDT 08/30/2024 10:13 AM EDT us Anuradha Grimm MD LAB BLOOD ORDERABLES Final Resu lt [facility] [address] [place] [address], * Magnesium (08/30/2024 5:06 AM EDT) Magnesium 1.9 1.9 - 2.6 mg/dL LAB CHEMISTRY METHOD 08/30/2024 11:10 AM EDT [facility] Blood Venous blood specimen / Unknown Venipuncture / Unknown 08/30/2024 5:06 AM EDT 08/30/2024 10:13 AM EDT us Anuradha Grimm MD LAB BLOOD ORDERABLES Final Resu lt [facility] [address] [place] [address], * (ABNORMAL) Comprehensive metabolic panel (08/30/2024 5:06 AM EDT) Sodium 143 133 - 145 mmol/L LAB CHEMISTRY METHOD 08/30/2024 11:33 AM [facility] Potassium 4.0 3.5 - 5.5 mmol/L LAB CHEMISTRY METHOD 08/30/2024 11:33 AM [facility] Chloride 112(H) 96 - 110 mmol/L LAB CHEMISTRY METHOD 08/30/2024 11:33 AM [facility] CO2 22 21 - 32 mmol/L LAB CHEMISTRY METHOD 08/30/2024 11:33 AM [facility] Anion Gap 9 3 - 11 LAB CHEMISTRY METHOD 08/30/2024 11:33 AM [facility] Glucose 102(H) 70 - 100 mg/dL LAB CHEMISTRY METHOD 08/30/2024 11:33 AM [facility] BUN 24 5 - 25 mg/dL LAB CHEMISTRY METHOD 08/30/2024 11:33 AM [facility] Creatinine 1.31(H) 0.50 - 1.10 mg/dL LAB CHEMISTRY METHOD 08/30/2024 11:33 AM [facility] eGFR 46(L) >=60 mL/min/1. 73m2 LAB CHEMISTRY METHOD 08/30/2024 11:33 AM [facility] Comment:Calculation based on the Chronic Kidney Disease Epidemiology Collaboration (CKD-EPI) equation refit without adjustment for race. BUN/Creatinine Ratio 18.3 LAB CHEMISTRY METHOD 08/30/2024 11:33 AM [facility] Calcium 9.8 8.5 - 10.5 mg/dL LAB CHEMISTRY METHOD 08/30/2024 11:33 AM T [facility] AST (SGOT) 50(H) 10 - 42 unit/L LAB CHEMISTRY METHOD 08/30/2024 11:33 AM [facility] ALT (SGPT) 105(H) 10 - 60 unit/L LAB CHEMISTRY METHOD 08/30/2024 11:33 AM T [facility] Alkaline Phosphatase 97 42 - 121 unit/L LAB CHEMISTRY METHOD 08/30/2024 11:33 AM EDT [facility] Total Protein 7.1 6.0 - 8.0 g/dL LAB CHEMISTRY METHOD 08/30/2024 11:33 AM [facility] Albumin 3.3 3.2 - 5.0 g/dL LAB CHEMISTRY METHOD 08/30/2024 11:33 AM [facility] Total Bilirubin 0.3 0.0 - 1.4 mg/dL LAB CHEMISTRY METHOD 08/30/2024 11:33 AM T [facility] Blood Venous blood specimen / Unknown Venipuncture / Unknown 08/30/2024 5:06 AM EDT 08/30/2024 10:13 AM EDT us Anuradha Grimm MD LAB BLOOD ORDERABLES Final Resu lt [facility] [address] [place] [address], documented in this encounter Visit Diagnoses Diagnosis Encounter for other general examination documented in this encounter Care Teams Flatwork Catcher Relationship Specialty Start Date End Date Jo Ann Gagnon MD [address] [place] [phone] PCP - General Internal Medicine 10/07/21 documented as of this encounter
== END 2024-11-23 13:54 | disposition home or self-care (01) ==
LOC: HO.HKA 13:33
PROVIDERS: PCP Internal Medicine; Visit Provider Internal Medicine Hypertension Specialist
DX: I1A.0 Resistant hypertension (principal); N18.31 Chronic kidney disease, stage 3a; G43.009 Migraine without aura, not intractable, without status migrainosus
CPT/HCPCS: 99214

== ENCOUNTER → 2024-11-23 13:32 | Outpatient (BNVA) | payer OTHER, SELFPAY | PROVIDERS: PCP Internal Medicine; Visit Provider Internal Medicine Hypertension Specialist | DX: I1A.0 Resistant hypertension (principal); N18.31 Chronic kidney disease, stage 3a; G43.009 Migraine without aura, not intractable, without status migrainosus | CPT/HCPCS: 99212 ==

== ENCOUNTER 2024-12-13 10:18 | Outpatient (AMB) | payer OTHER, SELFPAY ==
--- NOTE | 2024-12-13 10:32 | A.OFFVIS_ITS ---
Vital Signs 12/13/24 10:36 BP 160/80 H Pulse 81 Intake Visit Reasons: 4 Months Allergies oxycodone (From PERCOCET) Allergy (Intermediate, Verified 11/23/24 13:44) RASH codeine (Codeine) Allergy (Unknown, Verified 11/23/24 13:44) SHORTNESS OF BREATH morphine (Morphine) Adverse Reaction (Unknown, Verified 11/23/24 13:44) CHEST PAIN Percocet Allergy (Unknown, Uncoded 12/30/10 00:00) anxiety Vicodin Allergy (Unknown, Uncoded 12/30/10 00:00) rash HPI Comments Details: 64 years old woman with migraine and hypertension related cerebral microvascular disease of brain. She is presenting with post-stroke symptoms. She has a history of a cerebrovascular accident that occurred a long time ago, which has since impacted her speech and memory. She notes that her memory has shown signs of impairment, particularly following her most recent stroke. There is an ongoing effort to improve her speech post-stroke. Her blood pressure was recorded as elevated during this visit, which contrasts with a lower reading noted last week during a visit with her primary care physician. No new issues have been reported with her headaches, which she says a re better. [facility] Medical History (Updated 12/13/24 @ 10:40 by Shantell Arellano MD) Cerebral microvascular disease Anxiety Acute CVA (cerebrovascular accident) Migraines HTN (hypertension) Surgical History (Updated 11/23/24 @ 13:43 by KATIE Toribio) History of cataract surgery (~11/2024) H/O section Family History Father Hypertension Diabetes Mother Heart murmur Social History Alcohol intake: never Patient Tobacco Use Status: Never used Tobacco Review of Systems Const Details: - Neurological: Reports memory impairment and speech difficulties. - Other Systems: Denies new issues with headaches. Physical Exam Vital Signs: Last Vital Signs Pulse 81 12/13/24 10:36 BP 160/80 H 12/13/24 10:36 Neuro Other: Mental Status: Alert and oriented to person, place, and time. Normal attention. Normal spontaneous speech, fluency, and comprehension. No obvious issues with mood and memory. Affect is appropriate. Cranial Nerves: CN II: Visual avila full to confrontation, visual acuity intact. CN III, IV, : Pupils equal, round, reactive to light and accommodation. Extraocular movements are normal. CN V: Facial sensation is normal. CN VII: Facial movements symmetrical. CN VIII: Hearing intact to bedside conversation is normal. CN IX, X: Palate elevates symmetrically. CN XI: Shoulder shrug and head turn symmetrical. CN XII: Tongue midline without atrophy or fasciculations. Extrapyramidal: Full facial expressions and blinking. No rigidity. Movements are appropriate with no tremor or abnormality. Speech: Normal; no dysarthria or tremor. Assessment & Plan Assessment & Plan (1) Migraines: Code(s): G43.909 - Migraine, unspecified, not intractable, without status migrainosus Category: Medical Qualifiers: Intractability: not intractable Migraine type: migraine (< 15 days per month) without aura Status migrainosus presence: without status migrainosus Qualified Code(s): G43.009 - Migraine without aura, not intractable, without status migrainosus (2) Cerebral microvascular disease: Comment: 12/18/19 NCV/EMG UE This is a normal study. CT brain WO at [facility] in July 2019: mod WM hypodensities MRI brain WO at [facility] in July 2019: mod to severe WM lesions, including in brainstem, suggestive of MVD Code(s): I67.89 - Other cerebrovascular disease Category: Medical (3) Vascular dementia: Code(s): F01.50 - Vascular dementia, unspecified severity, without behavioral disturbance, psychotic disturbance, mood disturbance, and anxiety Category: Medical Qualifiers: Dementia severity: mild Dementia behavioral or psychological symptom: without behavioral, psychotic, or mood disturbance or anxiety Qualified Code(s): F01.A0 - Vascular dementia, mild, without behavioral disturbance, psychotic disturbance, mood disturbance, and anxiety Plan Impression: a: HTN 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 b: Vascular dementia c: Migraine w/o aura Rec: a: Aspirin 81mg daily b: Statin therapy c: BP control d: Memantine 5mg bid Medications: New memantine (Namenda) 5 mg PO BID 180 tabs 0RF Coding Level of Care Code Est Pt Level 4 (09199) Diagnoses Migraine without aura and without status migrainosus, not intractable G43.009 Intractability: not intractable Migraine type: migraine (< 15 days per month) without aura Status migrainosus presence: without status migrainosus Cerebral microvascular disease I67.89 Mild vascular dementia without behavioral disturbance, psychotic disturbance, mood disturbance, or anxiety F01.A0 Dementia severity: mild Dementia behavioral or psychological symptom: without behavioral, psychotic, or mood disturbance or anxiety
[2024-12-13 10:36] VITALS: BP 160/80; PULSE 81
== END 2024-12-13 10:42 | disposition home or self-care (01) ==
LOC: HO.HSM 10:18
PROVIDERS: PCP Internal Medicine; Referring Provider Internal Medicine; Visit Provider Psychiatry & Neurology Neurology
DX: G43.009 Migraine without aura, not intractable, without status migrainosus (principal); I67.89 Other cerebrovascular disease; F01.A0 Vascular dementia, mild, without behavioral disturbance, psychotic disturbance, mood disturbance, and anxiety
CPT/HCPCS: 99214

== ENCOUNTER → 2024-12-13 10:18 | Outpatient (BNVA) | payer OTHER, SELFPAY | PROVIDERS: PCP Internal Medicine; Referring Provider Internal Medicine; Visit Provider Psychiatry & Neurology Neurology | DX: G43.009 Migraine without aura, not intractable, without status migrainosus (principal); I67.89 Other cerebrovascular disease; F01.50 Vascular dementia, unspecified severity, without behavioral disturbance, psychotic disturbance, mood disturbance, and anxiety | CPT/HCPCS: 99212 ==